=== PATIENT | male | born 1965 | race Caucasian/White ===

== ENCOUNTER 2022-05-15 13:50 | Outpatient (CLI) | payer OTHER, SELFPAY | END 2022-05-15 13:51 | disposition home or self-care (01) | LOC: WOUND 13:50 | PROVIDERS: Visit Provider Nurse Practitioner Family | DX: E11.621 Type 2 diabetes mellitus with foot ulcer (principal); L97.526 Non-pressure chronic ulcer of other part of left foot with bone involvement without evidence of necrosis; E66.3 Overweight | CPT/HCPCS: 99212 ==

== ENCOUNTER 2022-05-29 12:55 | Outpatient (CLI) | payer OTHER, SELFPAY | END 2022-05-29 12:56 | disposition home or self-care (01) | LOC: WOUND 12:55 | PROVIDERS: Visit Provider Nurse Practitioner Family | DX: E11.621 Type 2 diabetes mellitus with foot ulcer (principal); L97.526 Non-pressure chronic ulcer of other part of left foot with bone involvement without evidence of necrosis | CPT/HCPCS: 99212 ==

== ENCOUNTER 2022-06-12 13:01 | Outpatient (CLI) | payer OTHER, SELFPAY | END 2022-06-12 13:02 | disposition home or self-care (01) | LOC: WOUND 13:02 | PROVIDERS: Visit Provider Nurse Practitioner Family | DX: E11.621 Type 2 diabetes mellitus with foot ulcer (principal); L97.528 Non-pressure chronic ulcer of other part of left foot with other specified severity | CPT/HCPCS: 97597 ==

== ENCOUNTER 2022-06-26 12:56 | Outpatient (CLI) | payer OTHER, SELFPAY | END 2022-06-26 12:57 | disposition home or self-care (01) | LOC: WOUND 12:56 | PROVIDERS: Visit Provider Nurse Practitioner Family | DX: E11.621 Type 2 diabetes mellitus with foot ulcer (principal); L97.526 Non-pressure chronic ulcer of other part of left foot with bone involvement without evidence of necrosis | CPT/HCPCS: 97597 ==

== ENCOUNTER 2022-07-17 12:54 | Outpatient (CLI) | payer OTHER, SELFPAY | END 2022-07-17 12:55 | disposition home or self-care (01) | LOC: WOUND 12:54 | PROVIDERS: Visit Provider Nurse Practitioner Family | DX: E11.621 Type 2 diabetes mellitus with foot ulcer (principal); L97.526 Non-pressure chronic ulcer of other part of left foot with bone involvement without evidence of necrosis; Q84.5 Enlarged and hypertrophic nails | CPT/HCPCS: 11720; 97597 ==

== ENCOUNTER 2022-07-31 12:55 | Outpatient (CLI) | payer OTHER, SELFPAY | END 2022-07-31 12:56 | disposition home or self-care (01) | LOC: WOUND 12:55 | PROVIDERS: Visit Provider Nurse Practitioner Family | DX: E11.621 Type 2 diabetes mellitus with foot ulcer (principal); L97.526 Non-pressure chronic ulcer of other part of left foot with bone involvement without evidence of necrosis | CPT/HCPCS: 97597 ==

== ENCOUNTER 2022-08-14 12:59 | Outpatient (CLI) | payer OTHER, SELFPAY | END 2022-08-14 13:00 | disposition home or self-care (01) | LOC: WOUND 12:59 | PROVIDERS: Visit Provider Nurse Practitioner Family | DX: E11.621 Type 2 diabetes mellitus with foot ulcer (principal); L97.526 Non-pressure chronic ulcer of other part of left foot with bone involvement without evidence of necrosis; Q84.5 Enlarged and hypertrophic nails; Z79.85 Long-term (current) use of injectable non-insulin antidiabetic drugs | CPT/HCPCS: 99212 ==

== ENCOUNTER 2022-09-18 13:00 | Outpatient (CLI) | payer OTHER, SELFPAY | END 2022-09-18 13:01 | disposition home or self-care (01) | LOC: WOUND 13:00 | PROVIDERS: Visit Provider Nurse Practitioner Family | DX: E11.621 Type 2 diabetes mellitus with foot ulcer (principal); L97.521 Non-pressure chronic ulcer of other part of left foot limited to breakdown of skin | CPT/HCPCS: 97597 ==

== ENCOUNTER 2022-10-02 13:00 | Outpatient (CLI) | payer OTHER, SELFPAY | END 2022-10-02 13:01 | disposition home or self-care (01) | LOC: WOUND 13:00 | PROVIDERS: Visit Provider Physician Assistant Surgical | DX: E11.621 Type 2 diabetes mellitus with foot ulcer (principal); L97.521 Non-pressure chronic ulcer of other part of left foot limited to breakdown of skin; Z79.85 Long-term (current) use of injectable non-insulin antidiabetic drugs | CPT/HCPCS: 99212 ==

== ENCOUNTER 2024-08-08 20:49 | Emergency (ER) | payer MEDICARE, SELFPAY ==
[2024-08-08 21:15] VITALS: BP 142/92; PULSE 80; RESP 16; TEMP 36.4; O2SAT 94; BMI 35.6
--- NOTE | 2024-08-08 21:29 | CRLHL7_ITS ---
For Patients: As a result of the Cures Act, medical imaging exams and procedure reports are released immediately into your electronic medical record. You may view this report before your referring provider. If you have questions, please contact your health care provider. INDICATION: Recent surgery, left lower extremity swelling. TECHNIQUE: Venous duplex ultrasound of the bilateral lower extremities utilizing compression with finn-scale, color Doppler, and spectral Doppler imaging. COMPARISON: None FINDINGS: There is no sonographic evidence of deep vein thrombosis in the bilateral common femoral, deep femoral, superficial femoral, popliteal, posterior tibial, or peroneal veins. There is a chronic appearing superficial vein thrombus seen in the left greater saphenous vein less than 1 centimeter from the common femoral vein junction and extending to the distal thigh. There are some chronic appearing superficial vein thromboses seen at the left mid calf at area of redness. The soft tissues are unremarkable. IMPRESSION: 1. No deep vein thrombosis in the bilateral lower extremities. 2. There is a chronic appearing superficial vein thrombus seen in the greater saphenous vein less than 1 centimeter from the common femoral vein junction and extending to the distal thigh. 3. There are some chronic appearing superficial vein thromboses seen at the left mid calf at area of redness. Dictated by Benson Chamberlain MD @ 08/09/2024 12:11:45 AM (Electronically Signed)
--- NOTE | 2024-08-08 21:34 | ED.GENADULT ---
HPI - General Adult General Time Seen by Provider: 21:34 Date Seen: 08/08/24 Chief complaint: Lower Extremity Swelling Stated complaint: Possible blood clot L leg Time Seen by Provider: 08/08/24 21:33 Source: patient and RN notes reviewed Mode of arrival: ambulatory Limitations: no limitations History of Present Illness HPI narrative: This 58-year-old male is coming into our ER with concern of possible blood clot in his left lower leg. Noticed pain along the upper inside calf and on the posterior medial lower thigh in his left leg that is been progressive over a week or so. He has had no chest pain, no palpitations, no shortness of breath, no difficulty breathing with this. He has been wearing his compression stockings. He does have known underlying varicose veins in certainly will get swelling in the leg if he does not wear the compression stockings. There has been no fevers or chills. Patient had back surgery on July 22 at [facility]. He has been taking Tylenol for pain. He is not to take NSAIDs, he is off his 81 mg aspirin. He did go to an urgent care today but they were unable to do an ultrasound so he proceeded to come here. Related Data Home Medications ?Medication ?Instructions ?Recorded ?Confirmed amlodipine 10 mg tablet 10 mg PO DAILY 08/15/22 08/08/24 atorvastatin 40 mg tablet 40 mg PO .Bedtime 08/15/22 08/08/24 duloxetine 30 mg capsule,delayed 30 mg PO BID 08/15/22 08/08/24 release insulin glargine 100 unit/mL (3 unit subcut .Daily With Am Meal 08/15/22 06/10/24 mL) subcutaneous pen losartan 100 mg tablet 100 mg PO DAILY 08/15/22 08/08/24 oxycodone 5 mg tablet 5 mg PO 09/21/22 06/10/24 Previous Rx's ?Medication ?Instructions ?Recorded cyclobenzaprine 10 mg tablet 10 mg PO .COMPLEX #10 tabs 06/10/24 apixaban 5 mg tablet (Eliquis) 5 mg PO BID #60 tabs 08/09/24 Allergies Allergy/AdvReac Type Severity Reaction Status Date / Time metformin AdvReac Mild Diarrhea Verified 06/10/24 11:59 Review of Systems Status of ROS: Reports: 6 or more systems reviewed and unremarkable except as noted in History and below [facility] Medical History (Updated 08/09/24 @ 00:17 by Umm Mccabe MD) Encounter for follow-up ?Z09 - Encounter for follow-up examination after completed treatment for conditions other than malignant neoplasm (ICD-10) Surgical History (Updated 05/10/22 @ 15:55 by Guevara Finley) History of inguinal hernia repair ?Z98.890 - Other specified postprocedural states (ICD-10) ?Z87.19 - Personal history of other diseases of the digestive system (ICD-10) Social History Narrative: 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, 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 Face atraumatic, sclera clear, able speak in complete sentences. Lungs are clear, good air entry, no wheezing or crackles. CV regular rate and rhythm, no murmur, normal S1-S2, no S3-S4. He has a Velcro brace on his back. He has [id number] compression Guerrero hose on. The left 1 was taken down, there is no underlying edema. He can feel a palpable cord along the left medial upper calf and then you can feel 1 along the posterior medial thigh, both are tender but the 1 on the thighs more tender in there is some surrounding erythema. Reviewed with patient that these certainly seem like superficial thrombophlebitis. Documenting provider has reviewed patient's vital signs: yes Course Course ED Course: Reviewed superficial thrombophlebitis with patient. He would certainly need to follow this very closely, if it is superficial thrombophlebitis, would recommend an 81 mg aspirin daily but he will need to clear this with his surgeon. If there is DVT, will discuss anticoagulation with him. Did discuss with patient that the foreman or supervisor and operator is on-call and will be called in from home. He understands that there will be a wait time for this. Reevaluation(s) Time of Reevaluation #1: 23:58 Reevaluation #1: Reviewed with patient that we are awaiting the radiologist to read the venous ultrasound officially. The preliminary from the foreman or supervisor and operator is that there is superficial vein thrombosis throughout the greater saphenous and it is less than 1 cm from the common femoral. Nursing staff did look up his last creatinine and was 0.83 in January of 2024, no history of kidney disease. I reviewed with patient that if the radiologist's confirms the formal reading that anticoagulation is recommended. Discussed Eliquis versus Xarelto. He stated he wanted to talk to the surgeon 1st. He would plan on calling them tomorrow. Reviewed with him that I do not recommend waiting to talk to the surgeon, this clot is at risk for extension, this is to be treated as sonata miss with a DVT in the literature. Did review this on up-to-date and do know this from prior cases as well. My recommendation would be to take 1st dose of Eliquis tonight and certainly contact the surgeon tomorrow. I do not recommend waiting to start blood thinners. Vital Signs Vital signs: Initial Vital Signs Temperature 97.6 F 08/08/24 21:15 Temperature Source Temporal Artery Scan 08/08/24 21:15 Pulse Rate 80 08/08/24 21:15 Respiratory Rate 16 08/08/24 21:15 Blood Pressure 142/92 H 08/08/24 21:15 Blood Pressure Mean 108 H 08/08/24 21:15 Blood Pressure Position Sitting 08/08/24 21:15 Pulse Oximetry 94 08/08/24 21:15 Oxygen Delivery Method Room Air 08/08/24 21:15 Vital Signs Temperature 97.6 F 08/08/24 21:15 Pulse Rate 80 08/08/24 21:15 Respiratory Rate 16 08/08/24 21:15 Blood Pressure 142/92 H 08/08/24 21:15 Pulse Oximetry 94 08/08/24 21:15 Oxygen Delivery Method Room Air 08/08/24 21:15 Temperature 97.6 F 08/08/24 21:15 Pulse Rate 80 08/08/24 21:15 Respiratory Rate 16 08/08/24 21:15 Blood Pressure 142/92 H 08/08/24 21:15 Pulse Oximetry 94 08/08/24 21:15 Oxygen Delivery Method Room Air 08/08/24 21:15 Medical Decision Making Imaging Data Venous US: Attestation: I have reviewed the pertinent imaging results. My impression: Reviewed the radiologist reading. Note that the patient was only experiencing increasing pain over this last week, there is redness in the thigh area, symptoms definitely seem to correspond with acute changes based on his history. Radiologist's impression: Patient: BYRON ANDERSON Facility:?[facility] Patient ID:?[id number] Site Patient ID:?[id number]. Site :?[id number] Study:?US-Extremity Bilateral venous-08/08/2024 10:59:58 PM Ordering Physician:?Perla Nash Final Report: INDICATION: Recent surgery, left lower extremity swelling. TECHNIQUE: Venous duplex ultrasound of the bilateral lower extremities utilizing compression with finn-scale, color Doppler, and spectral Doppler imaging. COMPARISON: None FINDINGS: There is no sonographic evidence of deep vein thrombosis in the bilateral common femoral, deep femoral, superficial femoral, popliteal, posterior tibial, or peroneal veins. There is a chronic appearing superficial vein thrombus seen in the left greater saphenous vein less than 1 centimeter from the common femoral vein junction and extending to the distal thigh. There are some chronic appearing superficial vein thromboses seen at the left mid calf at area of redness. The soft tissues are unremarkable. IMPRESSION: 1. No deep vein thrombosis in the bilateral lower extremities. 2. There is a chronic appearing superficial vein thrombus seen in the greater saphenous vein less than 1 centimeter from the common femoral vein junction and extending to the distal thigh. 3. There are some chronic appearing superficial vein thromboses seen at the left mid calf at area of redness. Dictated by Benson Chamberlain MD @ 08/09/2024 12:11:45 AM (Electronic Signature) Discharge Plan Discharge Clinical Impression: Acute superficial venous thrombosis of left lower extremity Patient Disposition: Home, Self-Care Condition: Stable Instructions: Venous Thromboembolism (ED) Additional Instructions: You were given 10 mg of Eliquis tonight here in the ER, need to complete a total of 14 doses of this taken twice a day, then you will transition to 5 mg twice a day. Current literature would recommend treatment for 3 months and re-evaluation. You should call your surgeon tomorrow. Let them know that we have found superficial vein thrombus in the left greater saphenous that is less than 1 cm from the common femoral vein junction and does extend to the distal thigh. There is also superficial vein thrombosis seen at the left mid calf area but this is not the area of concern. I have sent in further Eliquis. Next dose would be due tomorrow morning. Need to also schedule a follow-up with your primary care provider in clinic. Prescriptions: New Eliquis 5 mg tablet 5 mg PO BID Qty: 60 0RF Rx Instructions: Need to take 10 mg twice a day for 13 more doses, 1st 10 mg dose was given in the ER. After the 10 mg dosing is complete, will take to 5 mg twice a day. No Action duloxetine 30 mg capsule,delayed release(DR/EC) 30 mg PO BID losartan 100 mg tablet 100 mg PO DAILY amlodipine 10 mg tablet 10 mg PO DAILY atorvastatin 40 mg tablet 40 mg PO .Bedtime insulin glargine 100 unit/mL (3 mL) insulin pen subcut .Daily With Am Meal oxycodone 5 mg tablet 5 mg PO cyclobenzaprine 10 mg tablet 10 mg PO .COMPLEX Qty: 10 0RF Rx Instructions: 1/2 to 1 tablet q8h prn pain. Follow Up/Referrals: Provider,Not a Local [Non-Staff] - Stand Alone Forms: [facility] [employer] Info Instructions
[2024-08-09] MEDS: APIXABAN 5 MG TABLET 10 MG PO (00:43)
== END 2024-08-09 00:46 | disposition home or self-care (01) ==
PROVIDERS: Emergency Provider Family Medicine; PCP Family Medicine
DX: I82.812 Embolism and thrombosis of superficial veins of left lower extremity (principal)
CPT/HCPCS: 93970; 99283; A9270

== ENCOUNTER 2024-09-10 17:39 | Emergency (ER) | payer MEDICARE, OTHER, SELFPAY ==
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
[2024-09-10 17:54] VITALS: BP 130/90; PULSE 80; RESP 18; TEMP 36.7; O2SAT 96; BMI 35.6
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
[2024-09-10 18:31] LABS: Lactate* 2.3 mmol/L (0.5-1.9)
[2024-09-10] MEDS: HYDROmorphone 0.5 mg/0.5 ml inj IVP (18:31)
[2024-09-10] MEDS: ONDANSETRON 2 MG/ML inj 4 MG IVP (18:31)
[2024-09-10 18:32] VITALS: PULSE 118; RESP 22; O2SAT 95
[2024-09-10 18:35] LABS: Basophils Percent Auto 0.1 % (0.0-3.0); Eosinophils Percent Auto 0.6 % (0.0-7.0); Hematocrit* 42.6 % (37.0-53.0); Hemoglobin* 14.1 gm/dL (13.5-17.5); Immature Granulocytes Pct Auto 0.2 %; Lymphocytes Percent Auto 7.1 % (20-44); Mean Corpuscular HGB Conc 33 gm/dL (32-36); Mean Corpuscular Hemoglobin 28 pg (26-34); Mean Corpuscular Volume 86 fL (80-100); Platelet Count* 268 K/uL (140-440); RDW Coefficient of Variation % 13.8 % (11.5-15.5); Red Blood Count* 4.96 m/uL (4.30-5.90); White Blood Count* 12.09 K/uL (4.50-11.00)
[2024-09-10 18:37] LABS: Slide Review Reflex No
[2024-09-10 18:48] LABS: Chloride* 99 mmol/L (96-114); Sodium* 134 mmol/L (135-149)
[2024-09-10 18:51] LABS: Anion Gap 13 mEq/L (7-15); Blood Urea Nitrogen* 30 mg/dL (7-30); Carbon Dioxide* 22 mmol/L (20-32); Creatinine* 0.8 mg/dL (0.5-1.5); Est. Creatinine Clearance* 112.36; Estimated Glomerular Filt Rate 102 ml/min
[2024-09-10 18:52] LABS: Glucose* 235 mg/dL (60-115)
[2024-09-10 19:04] LABS: Troponin I* < 0.01 ng/mL (0.01-0.04)
[2024-09-10 19:23] VITALS: O2SAT 95
[2024-09-10] MEDS: HYDROmorphone 0.5 mg/0.5 ml inj 1 MG IVP (19:36)
[2024-09-10] MEDS: LIDOCAINE 1%-EPI 1:100,000 20 ML INFILTRATI (19:40)
[2024-09-10 20:55] VITALS: PULSE 115; RESP 20
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
== END 2024-09-10 20:58 | disposition home or self-care (01) ==
PROVIDERS: Emergency Provider Emergency Medicine; PCP Family Medicine
DX: S09.90XA Unspecified injury of head, initial encounter (principal); S01.21XA Laceration without foreign body of nose, initial encounter; S60.211A Contusion of right wrist, initial encounter; R07.89 Other chest pain; M25.561 Pain in right knee; V43.52XA Car driver injured in collision with other type car in traffic accident, initial encounter
CPT/HCPCS: 12011; 36415; 70450; 70486; 71260; 72125; 73110; 73562; 74177; 80048; 82565; 83605; 84484; 85025; 86850; 86900; 86901; 93005; 94761; 96374; 96375; 99281; 99284; 99285; J1171; J2405; Q9967

== ENCOUNTER 2024-09-11 21:42 | Emergency (ER) | payer OTHER, MEDICARE, SELFPAY ==
[2024-09-11 22:01] VITALS: BP 134/84; PULSE 84; RESP 18; TEMP 36.7; O2SAT 99; BMI 34.7
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
[2024-09-11] MEDS: MORPHINE 10 MG/ML inj IM (22:59)
--- OUTSIDE RECORDS SUMMARY | 2024-09-11 23:08 | XMS_ITS | Referral Summary ---
Author Organization [facility] Address [address] [place] [address] Care Team Providers Care Nremt Name Role Phone Bryan Uribe M.D. Primary Care Provider [phone] Source Comments Patient records contain information from all sites at [facility]. For routine questions regarding patient records, call [phone] during business hours, M-F 8:00 AM - 5:00 PM Central Time. Record requests for emergency care only can be directed to [phone] at any time.[facility] Encounters Date Type Department Care Team Description 09/09/2024 Refill Department of Family Medicine in [place] [address] [place] [address] Bryan Uribe M.D. Med Refill 08/12/2024 Refill Department of Family Medicine in [place], [place] [address] [place] [address] Bryan Uribe M.D. Med Refill 07/16/2024 Clinical Communication Department of Family Medicine in [place], [place] [address] [place] [address] Bryan Uribe M.D. Welcome To Medicare 07/08/2024 1:00 PM CDT Office Visit Department of Family Medicine in [place], [place] [address] [place] [address] Bryan Uribe M.D. Chronic Pain Syndrome (Primary Dx); Radiculopathy Cervical Seventh; Pain Low Back Unspecified; Pain Knee Left 07/08/2024 11:07 AM CDT - 07/08/2024 11:59 PM CDT Hospital Encounter Department of Laboratory Medicine in [place], [place] [address] [place] [address] Bryan Uribe M.D. Hypertensive Chronic Kidney Disease With Stage 1 Through Stage 4 Chronic Kidney Disease, Or Unspecified Chronic Kidney Disease; Chronic Pain Syndrome Discharge Disposition: Home or Self Care 06/16/2024 Refill Department of Family Medicine in [place], [place] [address] [place] [address] Bryan Uribe M.D. Med Refill from Last 3 Months Allergies Active Allergy Reactions Criticality Noted Date Comments Metformin Diarrhea 05/23/2016 Medications aspirin 81 mg capsule Take 81 mg by mouth every evening. 08/25/20 14 Active DOCOSAHEXANOI C ACID/EPA (FISH OIL ORAL) Take 2 capsules by mouth daily. 05/23/20 16 Active ammonium lactate (LAC-HYDRIN) 12 % lotion APPLY DAILY TO FEET 12/13/19 22 Active BD Willa 2nd Gen Pen Needle 32 gauge x /32 needle 11/04/20 21 Active semaglutide (Ozempic) 2 mg/dose (8 mg/3 mL) injection Inject 2 mg under the skin every 7 (seven) days. 3 mL 11 02/03/20 23 Active potassium chloride (KLORCON/K-TA B) 10 mEq ER tablet TAKE 1 TABLET BY MOUTH 3 TIMES DAILY WITH MEALS 270 tablet 3 02/29/20 23 Active insulin degludec (Tresiba FlexTouch U-100) 100 unit/mL (3 mL) injection Inject 50 Units under the skin at bedtime. 15 mL 3 10/23/20 23 Active Additional Information Patient taking differently: 55 Unitssubcutaneous Daily at bedtime, Reported on 03/25/2024 DULoxetine (CYMBALTA) [address] capsuleIndica tions:Diabete s Mellitus Type 2 Peripheral Neuropathy (HCC) Take 1 capsule (30 mg total) by mouth 2 (two) times a day. 180 capsule 3 11/20/19 24 Active Additional Information Patient taking differently: 60 mgoral 2 times daily, Reported on 03/25/2024 losartan (COZAAR) 100 mg tabletIndicat ions:Hyperten domitila And Chronic Kidney Disease Stage 1 Take 1 tablet (100 mg total) by mouth daily. 90 tablet 3 11/20/19 24 Active amLODIPine (NORVASC) 10 mg tabletIndicat ions:Hyperten domitila And Chronic Kidney Disease Stage 1 Take 1 tablet (10 mg total) by mouth daily. 90 tablet 3 11/20/19 24 Active atorvastatin (LIPITOR) 40 mg tabletIndicat ions:Hyperlip idemia Take 1 tablet (40 mg total) by mouth daily. 90 tablet 3 01/11/20 24 Active oxyCODONE (Roxicodone) 5 mg immediate release tabletIndicat ions:Chronic Pain/Nonacute Pain Take 1 tablet (5 mg total) by mouth 2 (two) times a day as needed for pain Indication: Chronic Pain/Nonacute Pain. 60 tablet 09/09/20 24 Active oxyCODONE (Roxicodone) 5 mg immediate release tabletIndicat ions:Chronic Pain/Nonacute Pain Take 1 tablet (5 mg total) by mouth 2 (two) times a day as needed for pain Indication: Chronic Pain/Nonacute Pain. 60 tablet 08/12/20 24 024 Discontin ued(Reord er) Active Problems Problem Noted Date Diagnosed Date Pain Knee Left 07/08/2024 Assessment & Plan (07/09/2024 5:17 PM CDT): Currently under the care of [facility]. MRI of the left knee completed 12/2022 showed complex tear from the anterior root through the body of the lateral meniscus, chronic intra-articular lateral tibial plateau fracture deformity with overlying chondral injury. 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 There is free edge fraying of the body of the medial meniscus with a moderate knee joint effusion. No ligamentous injury is noted. This historically was a work-related injury. Status post previous left knee meniscectomy. Managed with Synvisc injections. Currently with ongoing arthritis. He will consider knee replacement in the future based on symptoms. Pain Low Back Unspecified 07/08/2024 Assessment & Plan (07/09/2024 5:17 PM CDT): Recent low back pain with right lower leg radiculopathy. MRI 06/27/2024 showed L4-L5 right L4 encroachment with a 19 x 7 mm acute appearing right central disc extrusion and chronic appearing 5 mm right foraminal disc protrusion. There is vsfv-cg-wbttjscr spondylosis through the rest of the lumbar spine without high-grade stenosis. Currently under the care of [facility]. Reported planned surgical management with spine fusion. Plan for follow-up with Orthopedics for management. He is under controlled substance agreement with me, however when it comes to upcoming surgery, his postoperative pain will need to be managed by Orthopedics. Chronic Pain Syndrome 01/22/2023 Assessment & Plan (07/08/2024 1:19 PM CDT): Indication for opiate pain medication: Cervical radiculopathy. Current medication: Oxycodone for cervical radiculopathy. Number prescribed per month: 60 Expected duration: To be determined Controlled substance agreement signed: 03/25/2024 Clinic follow up recommended every 3 months. Orders: Family Medicine office visit (clinic) oxyCODONE (Roxicodone) 5 mg immediate release tablet; Take 1 tablet (5 mg total) by mouth 2 (two) times a day as needed for pain Indication: Chronic Pain/Nonacute Pain. Assessment & Plan (03/25/2024 1:24 PM CDT): Indication for opiate pain medication: Cervical radiculopathy. Current medication: Oxycodone for cervical radiculopathy. Number prescribed per month: 60 Expected duration: To be determined Controlled substance agreement signed: 03/25/2024 Clinic follow up recommended every 3 months. Assessment & Plan (11/20/2023 4:36 PM PATTERN MARKING SUPERVISOR): Indication for opiate pain medication: Cervical radiculopathy. Continue Cymbalta 30 mg twice a day for pain management. Current medication: Oxycodone for cervical radiculopathy. Number prescribed per month: 60 Expected duration: To be determined Controlled substance agreement signed: 01/22/2023 Clinic follow up recommended every 3 months. Radiculopathy Cervical Seventh 07/12/2022 Assessment & Plan (07/08/2024 1:19 PM CDT): Previously under the care of [facility]. Now under the care of [facility]. Cervical spondylosis without myelopathy. Status post medial branch nerve block 05/2023. On chronic opiate therapy with oxycodone 5 mg twice a day. Patient has reported that recently orthopedics has suggested that surgical treatment is not an option. He has elected to proceed with possible radiofrequency ablation and will continue to work with his surgical specialty team regarding management. Assessment & Plan (03/25/2024 1:04 PM CDT): Previously under the care of [facility]. Cervical spondylosis without myelopathy. Status post medial branch nerve block 05/2023. On chronic opiate therapy with oxycodone 5 mg twice a day. Assessment & Plan (11/20/2023 4:34 PM PATTERN MARKING SUPERVISOR): Previously under the care of [facility]. Cervical spondylosis without myelopathy. Status post medial branch nerve block 05/2023. On chronic opiate therapy with oxycodone 5 mg twice a day. Diabetes Mellitus Type 2 Peripheral Neuropathy 0 05/29/2016 Assessment & Plan (11/20/2023 4:35 PM PATTERN MARKING SUPERVISOR): Diabetes appears appears poorly controlled. Medications: Continue insulin glargine 50 units nightly. Continue semaglutide 2 mg every 7 days. We discussed general issues about diabetes pathophysiology and management. The importance of glycemic control, blood pressure control, management of lipids, and weight control were reviewed. Adherence to the ADA diet and regular aerobic exercise was encouraged. Routine foot care and annual eye exams were recommended. Diabetic follow-up visit recommended every 3 months with recheck the pain gland when A1c for medication titration. Patient has been approved for a free drug program manufacture where he will be able to get the insulin and semaglutide. Unfortunately [facility] is unable to receive prescriptions at the clinic. He will consider other options for obtaining these medications including going through standard insurance however may need to find a different clinic who would be able to facilitate this type of acquisition of pharmaceuticals. Follow-up with me is scheduled in January with labs prior to the visit. Hypoxia Sleep Related 03/01/2016 Morbid Obesity Body Mass Ind ex >= 35 with Comorbid Condition 02/28/2016 Assessment & Plan (11/20/2023 4:29 PM PATTERN MARKING SUPERVISOR): He was encouraged to try to continue efforts at losing weight. He will continue Ozempic 2mg weekly. We discussed lifestyle modification to manage obesity. The overall health benefits of weight loss were reviewed. Hyperlipidemia 08/25/2014 Assessment & Plan (11/20/2023 4:31 PM PATTERN MARKING SUPERVISOR): Lipids are appears adequately controlled. Medication recommendations: Continue Arovastatin 40mg daily. Cholesterol management goals were discussed. Lifestyle modification recommendations to improve cholesterol were reviewed. Plan for annual lipid monitoring. Hypertensive Chronic Kidney Disease With Stage 1 Through Stage 4 Chronic Kidney Disease, Or Unspecified Chronic Kidney Disease 10/27/2013 Assessment & Plan (11/20/2023 4:31 PM PATTERN MARKING SUPERVISOR): Blood pressure appears well controlled. Medications recommendations: Continue amlodipine and losartan. Blood pressure elevated today due to not having a refill of blood pressure medication. Goal blood pressure was discussed based on his current comorbidities. Lifestyle modification recommendations to improve blood pressure were reviewed. Plan to recheck blood pressure at next visit and add diuretic if necessary. Resolved Problems Problem Noted Date Diagnosed Date Resolved Date Hypertensive Chronic Kidney Disease With Stage 1 Through Stage 4 Chronic Kidney Disease, Or Unspecified Chronic Kidney Disease 03/25/2024 07/02/2024 Positive Cologuard Stool Dariel xyribonucleic Acid Test 09/09/2021 11/20/2023 Overview (09/09/2021): Added automatically from request for surgery [id number] Clostridium Difficile Infection 06/29/2016 09/18/2017 Diabetes Mellitus Type 2 Wit h Diabetic Nephropathy 05/23/2016 10/09/2023 Ureterolithiasis 03/01/2016 09/18/2017 Stone Kidney 10/27/2013 09/18/2017 Immunizations Name Administration Dates Next Due HepB Adult 05/02/2023(Deferred: Patient Ref used) PPSV23 05/02/2023(Deferred: Patient Ref used) RZV (SHINGRIX) 05/02/2023(Deferred: Patient Ref used) SARS-COV-2 (COVID-19) - PFIZ ER (Discontinued)(12 years or older) 05/02/2023(Deferred: Patient Refused) Tdap 05/02/2023(Deferred: Patient Refused),11/06/2012,11/07/2011 Social History Tobacco Use Types Packs/Day Years Used Date Smoking Tobacco: Never Smokeless Tobacco: Never Tobacco Cessation:Counseling Given: Not Answered Alcohol Use Standard Drinks/Week Comments Yes 1 (1 standard drink = 0.6 oz pur e alcohol) rare Humiliation, Afraid, Rape, and Kick questionnair e Answer Date Recorded Within the last year, have y ou been afraid of your partner or ex-partner? Patient declined 07/12/2022 Within the last year, have y ou been humiliated or emotionally abused in other ways by your partner or ex-partner? No 07/12/2022 Within the last year, have y ou been kicked, hit, slapped, or otherwise physically hurt by your partner or ex-partner? No 07/12/2022 Within the last year, have y ou been raped or forced to have any kind of sexual activity by your partner or ex-partner? No 07/12/2022 Social Connection and Isolat ion Panel [NHANES] Answer Date Recorded In a typical week, how many times do you talk on the phone with family, friends, or neighbors? More than three times a week 07/12/2022 How often do you get togethe r with friends or relatives? Twice a week 07/12/2022 How often do you attend chur or episcopalian services? Never 07/12/2022 Do you belong to any clubs o r organizations such as mosque groups, unions, fraternal or athletic groups, or school groups? No 07/12/2022 How often do you attend meet ings of the clubs or organizations you belong to? Never 07/12/2022 Are you , , di vorced, , never , or living with a partner? 07/12/2022 AUDIT-C Answer Date Recorded Q1: How often do you have a drink containing alc ohol? Monthly or less 07/12/2022 Q2: How many drinks containi ng alcohol do you have on a typical day when you are drinking? 3 or 4 07/12/2022 Q3: How often do you have si x or more drinks on one occasion? Less than monthly 07/12/2022 Overall Financial Resource Strain (CARDIA) Answe r Date Recorded How hard is it for you to pa y for the very basics like food, housing, medical care, and heating? Hard 10/09/2023 PHQ-2 Answer Date Recorded PHQ-2 Score 2 03/25/2024 [facility] - Occupational Stress Questionnaire Answer Date Recorded Do you feel stress - tense, restless, nervous, or anxious, or unable to sleep at night because your mind is troubled all the time - these days? Rather much 07/12/2022 Exercise Vital Sign Answer Date Recorde d On average, how many days pe r week do you engage in moderate to strenuous exercise (like a brisk walk)? 0 days 10/09/2023 On average, how many minutes do you engage in exercise at this level? 0 min 10/09/2023 Hunger Vital Sign Answer Date Recorded Within the past 12 months, y ou worried that your food would run out before you got the money to buy more. Sometimes true Within the past 12 months, t he food you bought just didn't last and you didn't have money to get more. Sometimes true 03/2023 PRAPARE - Transportation Answer Date Re corded In the past 12 months, has l ack of transportation kept you from medical appointments or from getting medications? No 03/2023 In the past 12 months, has l ack of transportation kept you from meetings, work, or from getting things needed for daily living? No 10/09/2023 Depression Answer Date Recor ded PHQ-9 Total Score (max 27) 6 03/25 Nutrition Answer Date Recorded On average, how many serving s of fruits and vegetables do you eat per day (serving size is equal to 1 cup or approximately the size of a tennis ball)? 3-5 10/09/2023 Dental Answer Date Recorded Dental: Regular Dentist Yes 07/12/20 Employment Answer Date Recorded Employment status Employed but not working due t o illness or injury 10/09/2023 Housing Stability Answer Date Recorded What is your living situation today? I have a [place] place [place] live 10/09/2023 Education Answer Date Recorded What is the highest level of school you have completed or the highest degree you have received? GED or equivalent 05/2022 Sex and Gender Information Value Date Recorded Sex Assigned at Male 07/12/2022 1:04 PM CDT Legal Sex Male 4:24 PM PATTERN MARKING SUPERVISOR Gender Identity Male 07/12/2022 1:04 PM CDT Sexual Orientation Straight 07/12/2022 1: 04 PM CDT Last Filed Vital Signs Vital Sign Reading Time Taken Comments Blood Pressure 110/78 07/08/2024 12:40 PM CDT Pulse 115 07/08/2024 12:40 PM CDT Temperature 36.6 ??C (97.9 ??F) 07/08/2024 12:40 PM C DT Respiratory Rate 20 10/09/2023 1:16 PM PATTERN MARKING SUPERVISOR Oxygen Saturation 96% 07/08/2024 12:40 PM CDT Inhaled Oxygen Concentration - - Weight 123 kg (271 lb 13.2 oz) 07/08/2024 12:40 PM CDT Height 184 cm (6' 0.44) 07/08/2024 12:40 PM CDT Body Mass Index 36.42 07/08/2024 12:40 PM CDT Plan of Treatment Upcoming Encounters Date Type Department Care Team (Late st Contact Info) Description 10/08/2024 1:00 PM PATTERN MARKING SUPERVISOR Comprehensive Visit Department of Family Medicine in [place], [place] [address] [place] [address] Bryan Uribe M.D. [address] [place] [address] Procedures Procedure Name Priority Date/Time Associated Diagnosis Comments CONTROLLED SUBSTANCE MONITORING, U Routine 07/08/2024 11:26 AM CDT Chronic Pain Syndrome EXTM HEMOGLOBIN A1C, B Routine 01/07/2024 BASIC METABOLIC PANEL, S/P Routine 10/09/2023 1:52 PM PATTERN MARKING SUPERVISOR Hypertension And Chronic Kidney Disease Stage 1 ALBUMIN, RANDOM, U Routine 2022 8: 48 AM PATTERN MARKING SUPERVISOR Diabetes Mellitus Type 2 Peripheral Neuropathy (HCC) HCV AB SCRN W/REFLEX TO HCV PCR, S Routine 2022 8:35 AM PATTERN MARKING SUPERVISOR Screening Test Laboratory LIPID PANEL, S Routine 2022 8:35 AM PATTERN MARKING SUPERVISOR Hyperlipidemia COLONOSCOPY 07/03/2022 9:11 AM CDT COLOGUARD Routine 08/27/2021 10:40 AM CDT Screening Cancer Colon from Last 3 Months or Most Recently Relevant to Health Maintenance Results * (ABNORMAL) Controlled Substance Monitoring Panel, Urine (07/08/2024 11:26 AM CDT) List patient's current medications Not provided 4 10:02 PM CDT [facility] Comment: ----ADDITIONAL INFORMATION---- Accuracy and completeness of declared medications on reports solely dependent on information submitted by client. Creatinine, Random, U 221.3 mg/dL 4 8:47 AM CDT [facility] Specific [place] 1.030 07/09/20 2 4 8:47 AM CDT [facility] pH 5.3 4 8:47 AM CDT [facility] Oxidants Negative Cutoff: 200 mg/L 4 8:47 AM CDT [facility] Comment Normal 4 8:47 AM CDT [facility] Barbiturates Negative Cutoff: 200 ng/mL 4 8:47 AM CDT [facility] Cocaine Negative Cutoff: 150 ng/mL 4 8:47 AM CDT [facility] Comment: This cocaine immunoassay targets benzoylecgonine the primary metabolite of cocaine. Tetrahydrocannabinol Negative Cutoff: 50 ng/mL 4 8:47 AM CDT [facility] Comment: This immunoassay targets delta-9 tetrahydrocannabinol carboxylic acid (THC-COOH), a metabolite of delta-9 tetrahydrocannabinol the main psychoactive ingredient of marijuana. ----ADDITIONAL INFORMATION---- This report is intended for use in clinical monitoring or management of patients. ??It is not intended for use in employment-related testing. Codeine Not Detected Cutoff: 25 ng/mL 4 10:51 AM CDT [facility] Comment:Tylenol 3 Htrgrcd-9-xmcs-glucuro nide Not Detected Cutoff: 100 ng/mL 4 10:51 AM CDT [facility] Comment:Metabolite of codein e Morphine Not Detected Cutoff: 25 ng/mL 4 10:51 AM CDT [facility] Comment: Julia Ruiz, MS Contin; Also a minor metabolite (10%) of codeine and can be seen in low concentrations (<2,000 ng/mL) with poppy seed ingestion. Yradbpfl-4-yqck-glucur onide Not Detected Cutoff: 100 ng/mL 4 10:51 AM CDT [facility] Comment:Metabolite of morphi ne 6-monoacetylmorphine Not Detected Cutoff: 25 ng/mL 4 10:51 AM CDT [facility] Comment:Metabolite of heroin Hydrocodone Not Detected Cutoff: 25 ng/mL 4 10:51 AM CDT [facility] Comment: Lortab, [place], Vicodin; Also a very minor metabolite of codeine and impurity (<1%) of oxycodone. Norhydrocodone Not Detected Cutoff: 25 ng/mL 4 10:51 AM CDT [facility] Comment:Metabolite of hydroc odone Dihydrocodeine Not Detected Cutoff: 25 ng/mL 4 10:51 AM CDT [facility] Comment:Metabolite of hydroc odone Hydromorphone Not Detected Cutoff: 25 ng/mL 4 10:51 AM CDT [facility] Comment: Dilaudid, Exalgo; Also a metabolite of hydrocodone and a minor (<5%) metabolite of morphine. Tahnikalnuayi-5-mwur-g lucuronide Not Detected Cutoff: 100 ng/mL 4 10:51 AM CDT [facility] Comment:Metabolite of hydrom orphone Oxycodone Present(A) Cutoff: 25 ng/mL 4 10:51 AM CDT [facility] Comment:Endocet, Percocet, O xycontin Noroxycodone Present(A) Cutoff: 25 ng/mL 4 10:51 AM CDT [facility] Comment:Metabolite of oxycod one Oxymorphone Not Detected Cutoff: 25 ng/mL 4 10:51 AM CDT [facility] Comment:Numorphan, Opana; Al so a metabolite of oxycodone. Zkndqcsmwwj-9-jlnw-glu curonide Present(A) Cutoff: 100 ng/mL 4 10:51 AM CDT [facility] Comment:Metabolite of oxymor phone and/or naloxone (nornaloxone) Noroxymorphone Present(A) Cutoff: 25 ng/mL 4 10:51 AM CDT [facility] Comment:Metabolite of oxymor phone and/or naloxone (nornaloxone) Fentanyl Not Detected Cutoff: 2 ng/mL 4 10:51 AM CDT [facility] Comment:Actiq, Duragesic, Fe ntora Norfentanyl Not Detected Cutoff: 2 ng/mL 4 10:51 AM CDT [facility] Comment:Metabolite of fentan yl Meperidine Not Detected Cutoff: 25 ng/mL 4 10:51 AM CDT [facility] Comment:Demerol Normeperidine Not Detected Cutoff: 25 ng/mL 4 10:51 AM CDT [facility] Comment:Metabolite of meperi dine Naloxone Not Detected Cutoff: 25 ng/mL 4 10:51 AM CDT [facility] Comment:Narcan Pksbcwup-9-dpdm-glucur onide Not Detected Cutoff: 100 ng/mL 4 10:51 AM CDT [facility] Comment:Metabolite of naloxo ne Methadone, U Not Detected Cutoff: 25 ng/mL 4 10:51 AM CDT [facility] Comment:Dolophine EDDP Not Detected Cutoff: 25 ng/mL 4 10:51 AM CDT [facility] Comment:Metabolite of methad one Propoxyphene Not Detected Cutoff: 25 ng/mL 4 10:51 AM CDT [facility] Comment:Darvon, Darvocet Norpropoxyphene Not Detected Cutoff: 25 ng/mL 4 10:51 AM CDT [facility] Comment:Metabolite of propox yphene Tramadol Not Detected Cutoff: 25 ng/mL 4 10:51 AM CDT [facility] Comment:Tradol, Ultram, Ultr acet O-desmethyltramadol Not Detected Cutoff: 25 ng/mL 4 10:51 AM CDT [facility] Comment:Metabolite of tramad ol Tapentadol Not Detected Cutoff: 25 ng/mL 4 10:51 AM CDT [facility] Comment:Nucynta N-desmethyltapentadol Not Detected Cutoff: 50 ng/mL 4 10:51 AM CDT [facility] Comment:Metabolite of tapent adol Ulwbfvtzen-xlou-ptipqz onide Not Detected Cutoff: 100 ng/mL 4 10:51 AM CDT [facility] Comment:Metabolite of tapent adol Buprenorphine Not Detected Cutoff: 5 ng/mL 4 10:51 AM CDT [facility] Comment:Buprenex, Suboxone Norbuprenorphine Not Detected Cutoff: 5 ng/mL 4 10:51 AM CDT [facility] Comment:Metabolite of bupren orphine Norbuprenorphine glucuronide Not Detected Cutoff: 20 ng/mL 4 10:51 AM CDT [facility] Comment:Metabolite of bupren orphine Opioid Interpretation Test detected the presence of oxycodone and several metabolites (noroxycodone, noroxymorphone, and qmokgddnbzw-3-kus a-glucuronide). Suspect use of oxycodone and/or oxymorphone within the past three days. 4 10:51 AM CDT [facility] Comment: ----ADDITIONAL INFORMATION---- This test was developed and its performance characteristics determined by [facility] in a manner consistent with CLIA requirements. This test has not been cleared or approved by the U.S. Food and Drug Administration. Alprazolam Not Detected Cutoff: 10 ng/mL 4 8:44 AM CDT [facility] Comment:Xanax Alpha-Hydroxyalprazola m Not Detected Cutoff: 10 ng/mL 4 8:44 AM CDT [facility] Comment:Metabolite of Alpraz olam Alpha-Hydroxyalprazola m Glucuronide Not Detected Cutoff: 50 ng/mL 4 8:44 AM CDT [facility] Comment:Metabolite of Alpraz olam Chlordiazepoxide Not Detected Cutoff: 10 ng/mL 4 8:44 AM CDT [facility] Comment:Librium Clobazam Not Detected Cutoff: 10 ng/mL 4 8:44 AM CDT [facility] Comment:Frisium, Onfi N-Desmethylclobazam Not Detected Cutoff: 200 ng/mL 4 8:44 AM CDT [facility] Comment:Metabolite of Clobaz am Clonazepam Not Detected Cutoff: 10 ng/mL 4 8:44 AM CDT [facility] Comment:Klonopin, Rivotril 7-aminoclonazepam Not Detected Cutoff: 10 ng/mL 4 8:44 AM CDT [facility] Comment:Metabolite of Clonaz epam Diazepam Not Detected Cutoff: 10 ng/mL 4 8:44 AM CDT [facility] Comment:Valium Nordiazepam Not Detected Cutoff: 10 ng/mL 4 8:44 AM CDT [facility] Comment:Metabolite of Chlord iazepoxide, Diazepam, or Prazepam. Flunitrazepam Not Detected Cutoff: 10 ng/mL 4 8:44 AM CDT [facility] Comment:Rohypnol 7-aminoflunitrazepam Not Detected Cutoff: 10 ng/mL 4 8:44 AM CDT [facility] Comment:Metabolite of Flunit razepam Flurazepam Not Detected Cutoff: 10 ng/mL 4 8:44 AM CDT [facility] Comment:Dalmane 2-Hydroxy Ethyl Flurazepam Not Detected Cutoff: 10 ng/mL 4 8:44 AM CDT [facility] Comment:Metabolite of Fluraz epam Lorazepam Not Detected Cutoff: 10 ng/mL 4 8:44 AM CDT [facility] Comment:Ativan Lorazepam Glucuronide Not Detected Cutoff: 50 ng/mL 4 8:44 AM CDT [facility] Comment:Metabolite of Loraze naeem Midazolam Not Detected Cutoff: 10 ng/mL 4 8:44 AM CDT [facility] Comment:Versed Alpha-Hydroxy Midazolam Not Detected Cutoff: 10 ng/mL 4 8:44 AM CDT [facility] Comment:Metabolite of Midazo harris Oxazepam Not Detected Cutoff: 10 ng/mL 4 8:44 AM CDT [facility] Comment:Serax; Also a metabo lite of Chlordiazepoxide, Diazepam, or Temazepam. Oxazepam Glucuronide Not Detected Cutoff: 50 ng/mL 4 8:44 AM CDT [facility] Comment:Metabolite of Oxazep am Prazepam Not Detected Cutoff: 10 ng/mL 4 8:44 AM CDT [facility] Comment:Centrax Temazepam Not Detected Cutoff: 10 ng/mL 4 8:44 AM CDT [facility] Comment:Restoril; Also a met abolite of Diazepam. Temazepam Glucuronide Not Detected Cutoff: 50 ng/mL 4 8:44 AM CDT [facility] Comment:Metabolite of Temaze naeem Triazolam Not Detected Cutoff: 10 ng/mL 4 8:44 AM CDT [facility] Comment:Halcion Alpha-Hydroxy Triazolam Not Detected Cutoff: 10 ng/mL 4 8:44 AM CDT [facility] Comment:Metabolite of Triazo harris Zolpidem Not Detected Cutoff: 10 ng/mL 4 8:44 AM CDT [facility] Comment:Ambien Zolpidem Uxpqqs-3-Ltdaougfuj acid Not Detected Cutoff: 10 ng/mL 4 8:44 AM CDT [facility] Comment:Metabolite of Zolpid em Benzodiazepine Interpretation No benzodiazepines were detected. The absence of expected drug(s) and/or drug metabolite(s) may indicate non-compliance, altered pharmacokinetics, inappropriate timing of specimen collection relative to drug administration, diluted/adulterat ed urine, or limitations of testing. 4 8:44 AM CDT [facility] Comment: ----ADDITIONAL INFORMATION---- This test was developed and its performance characteristics determined by [facility] in a manner consistent with CLIA requirements. This test has not been cleared or approved by the U.S. Food and Drug Administration. Methamphetamine Not Detected Cutoff: 100 ng/mL 4 11:12 AM T [facility] Comment:Desoxyn Amphetamine Not Detected Cutoff: 100 ng/mL 4 11:12 AM T [facility] Comment: Dyanavel XR, Adzenys ER, Adderall, Vyvanse; Also a metabolite of methamphetamine 3,4-methylenedioxymeth amphetamine (MDMA) Not Detected Cutoff: 100 ng/mL 4 11:12 AM CDT [facility] 3,9-qneonpiwvwttsm-V-e thylamphetamine (MDEA) Not Detected Cutoff: 100 ng/mL 4 11:12 AM CDT [facility] 3,4-methylenedioxyamph etamine (MDA) Not Detected Cutoff: 100 ng/mL 4 11:12 AM T [facility] Comment:Also a metabolite of MDMA and/or MDEA Ephedrine Not Detected Cutoff: 100 ng/mL 4 11:12 AM CDT [facility] Pseudoephedrine Not Detected Cutoff: 100 ng/mL 4 11:12 AM CDT [facility] Comment:Sudafed Phentermine Not Detected Cutoff: 100 ng/mL 4 11:12 AM T [facility] Comment:Adipex-P, Lomaira, Q symia Phencyclidine (PCP) Not Detected Cutoff: 20 ng/mL 4 11:12 AM CDT [facility] Methylphenidate Not Detected Cutoff: 20 ng/mL 4 11:12 AM T [facility] Comment:Ritalin, Concerta Ritalinic acid Not Detected Cutoff: 100 ng/mL 4 11:12 AM T [facility] Comment:Metabolite of methyl phenidate Stimulant Interpretation No stimulants were detected. The absence of expected drug(s) and/or drug metabolite(s) may indicate non-compliance, altered pharmacokinetics, inappropriate timing of specimen collection relative to drug administration, diluted/adulterat ed urine, or limitations of testing. 4 11:12 AM T [facility] Comment: ----ADDITIONAL INFORMATION---- This test was developed and its performance characteristics determined by [facility] in a manner consistent with CLIA requirements. This test has not been cleared or approved by the U.S. Food and Drug Administration. Urine (Urine, Voided) 07/08/2024 11:26 AM CDT 07/08/2024 10:02 PM CDT Bryan Uribe M.D. LAB URINE ORDERABLES Final Resu lt [facility] [address] [place] [address] [facility] [address] [place] [address] [facility] [address] [place] [address] [place] [address] * (ABNORMAL) Basic Metabolic Panel (10/09/2023 1:52 PM PATTERN MARKING SUPERVISOR) Potassium, P 4.4 3.6 - 5.2 mmol/L 10/09/2023 4:06 PM PATTERN MARKING SUPERVISOR [facility] Sodium, P 133(L) 135 - 145 mmol/L 10/09/2023 4:06 PM PATTERN MARKING SUPERVISOR [facility] Chloride, P 101 98 - 107 mmol/L 10/09/2023 4:06 PM PATTERN MARKING SUPERVIS[employer] [facility] Bicarbonate, P 22 22 - 29 mmol/L 10/09/2023 4:06 PM PATTERN MARKING SUPERVISOR [facility] Anion Gap, P 10 7 - 15 10/09/2023 4:06 PM PATTERN MARKING SUPERVISOR [facility] BUN (Blood Urea Nitrogen), P 23 8 - 24 mg/dL 10/09/2023 4:06 PM PATTERN MARKING SUPERVISOR [facility] Creatinine 0.69(L) 0.74 - 1.35 mg/dL 10/09/2023 4:06 PM PATTERN MARKING SUPERVISOR [facility] Estimated GFR (eGFR) >90 >=60 mL/min/BSA 10/09/2023 4:06 PM PATTERN MARKING SUPERVISOR [facility] Comment: Estimated GFR calculated using the 2020 CKD_EPI creatinine equation. Calcium, Total, P 8.5(L) 8.6 - 10.0 mg/dL 10/09/2023 4:06 PM PATTERN MARKING SUPERVISOR [facility] Glucose, P 280(H) 70 - 140 mg/dL 10/09/2023 4:06 PM PATTERN MARKING SUPERVISOR [facility] Blood (Blood, Venous) 10/09/2023 1:52 PM PATTERN MARKING SUPERVISOR 10/09/2023 3:34 PM PATTERN MARKING SUPERVISOR us Tello Wood M.D. LAB BLOOD ADD-ON Final Result Performing Organization Address [facility] Co de Phone Number [facility] [address] [place] [address], [facility] NPRG [address] [address] * (ABNORMAL) Albumin, Random, Urine (2022 8:48 AM PATTERN MARKING SUPERVISOR) Microalbumin 100.0 mg/L 2022 10:46 AM PATTERN MARKING SUPERVISOR [facility] Creatinine 124 mg/dL 2022 10:46 AM PATTERN MARKING SUPERVISOR [facility] Albumin/Creatinin e Ratio 81(H) <17 mg/g 2022 10:46 AM PATTERN MARKING SUPERVISOR [facility] Urine (Urine, Voided) 2022 8:48 AM PATTERN MARKING SUPERVISOR 2022 10:11 AM PATTERN MARKING SUPERVISOR us Bryan Uribe M.D. LAB URINE ORDERABLES Final Resu lt Performing Organization Address [facility] Co de Phone Number [facility] [address] [place] [address], [facility] [address] [address] * Lipid Panel (2022 8:35 AM PATTERN MARKING SUPERVISOR) Triglycerides 98 mg/dL 2022 10:39 AM PATTERN MARKING SUPERVISOR [facility] Comment: ----REFERENCE VALUE---- Normal: <150 mg/dL Borderline High: 150-199 mg/dL High: 200-499 mg/dL Very High: > or =500 mg/dL Cholesterol, Total 147 mg/dL 2021 10:39 AM PATTERN MARKING SUPERVISOR [facility] Comment: ----REFERENCE VALUE---- Desirable: < 200 mg/dL Borderline High: 200 - 239 mg/dL High: > or = 240 mg/dL Cholesterol, LDL, Calculated 88 mg/dL 2022 10:39 AM PATTERN MARKING SUPERVISOR [facility] Comment: ----REFERENCE VALUE---- Desirable: <100 mg/dL Above Desirable: 100-129 mg/dL Borderline High: 130-159 mg/dL High: 160-189 mg/dL Very High: >=190 mg/dL ----ADDITIONAL INFORMATION---- LDL cholesterol calculated using the Boyd/NIH equation. Cholesterol, HDL 41 >=40 mg/dL 10/20/20 10:39 AM PATTERN MARKING SUPERVISOR [facility] Cholesterol, Non-HDL, Calculated 106 mg/dL 2022 10:39 AM PATTERN MARKING SUPERVISOR [facility] Comment: ----REFERENCE VALUE---- Desirable: <130 mg/dL Above Desirable: 130-159 mg/dL Borderline High: 160-189 mg/dL High: 190-219 mg/dL Very High: > or =220 mg/dL Fasting (8 HR or more) Yes 2022 10:13 AM PATTERN MARKING SUPERVISOR NPR Blood (Blood, Venous) 2022 8:35 AM PATTERN MARKING SUPERVISOR 2022 10:13 AM PATTERN MARKING SUPERVISOR Bryan Uribe M.D. LAB BLOOD ADD-ON Final Result [facility] [address] [place] [address], [facility] [address] [place] [address] * HCV Ab Scrn w/Reflex to HCV PCR, Serum (2022 8:35 AM PATTERN MARKING SUPERVISOR) HCV Ab Screen, S Negative Negative 10/21/2022 12:31 PM PATTERN MARKING SUPERVISOR [facility] Comment:Iruwna-cf-hddqez rat io is <1.00. Blood (Blood, Venous) 2022 8:35 AM PATTERN MARKING SUPERVISOR 10/21/2022 12:31 PM PATTERN MARKING SUPERVISOR Bryan Uribe M.D. LAB MICROBIOLOGY - BLOOD ORDERA BLES Final Result [facility] [address] [place] [address] [place] [address] * COLONOSCOPY (07/03/2022 9:11 AM CDT) Narrative Procedure Note Geetha Spicer M.D. - 07/03/2022 9:11 AM CDT [facility] Patient Name: Rey Jenkins Procedure Date: 07/03/2022 9:11 AM Date of : 1965 Age: 56 Gender: Male Procedure: Colonoscopy Providers: Geetha Spicer MD, Bryan Uribe MD (Ordering Provider) Referring Provider: Bryan Uribe MD Pre-op Diagnoses: Positive Cologuard test Post-op Diagnoses: - Diverticulosis in the sigmoid colon. - One 3 mm polyp at the splenic flexure, removed with a jumbo cold forceps. Resected and retrieved. - The examination was otherwise normal on direct and retroflexionviews. Recommendation: - Discharge patient to home. - High fiber diet. - Await pathology results. - Anticipate follow up colonoscopy to be completed in 7-10 years, kriss determined by pathology. Follow up recommendations for patients with polyps identified during colonoscopy are impacted by several factors including polyp characteristics (size, number and histology),adequacy of colonic preparation and pertinent family history. For [facility] providers, detailed recommendations are available as an AskMayoExpert Care Process Model: <<[email or web address]>. Theabove is an interim recommendation assuming adenomatous pathology,referring provider should refer to [facility] to finalize repeat recommendations. Findings: The perianal and digital rectal examinations were normal. A few small-mouthed diverticula were found in the sigmoid colon. A 3 mm polyp was found in the splenic flexure. The polyp was semi-sessile. The polyp was removed with a jumbo cold forceps.Resection and retrieval were complete. The exam was otherwise without abnormality on direct and retroflexion views. Medicines: Propofol per Anesthesia Estimated Blood Loss: Estimated blood loss was minimal. Complications: No immediate complications. Procedure Details: The patient was seen, evaluated, and history reviewed. Airway and heart and lung exams were performed and were satisfactory for plannedsedation care. The risks, benefits and alternatives for the procedure and sedation were discussed andinformed consent was obtained. A procedural pause was conducted in the presence of assisting personnelto verify the correct patient identity and procedureto be performed. Throughout the procedure, the patient's blood pressure, pulse, and oxygen saturations were monitored continuously. The Colonoscope was introduced under directvision through the anus and advanced to the cecum, identified by appendiceal orifice and ileocecal valve. The colonoscopy was performed with ease.The patient tolerated the procedure well. The qualityof the bowel preparation was evaluated using theBBPS ([place] Bowel Preparation Scale) with scores of: Right Colon = 2 (minor amount of residualstaining, small fragments of stool and/or opaque liquid,but mucosa seen well), Transverse Colon = 2 (minor amount of residual staining, small fragments of stool and/or opaque liquid, but mucosa seen well) and Left Colon = 3 (entire mucosa seen well withno residual staining, small fragments of stool or opaque liquid). The total BBPS score equals 7.The quality of the bowel preparation was good. Scope insertion time was 6 minutes. Scope withdrawaltime was 17 minutes. Sedation: Anesthesia was administered by an anesthesia professional. Thefollowing parameters were monitored: oxygen saturation, heart rate, blood pressure, respiratory rate, EKG, adequacy of pulmonary ventilation,and response to care. Geetha Spicer MD 07/03/2022 9:16:28 AM Number of Addenda: 0 Note Initiated On: 07/03/2022 9:11 AM ADDENDUM: Pathology reviewed. Based on risk stratification and the pathology,recommend repeat colonoscopy in 7-10 years. FINAL DIAGNOSIS A. Colon biopsy, transverse colon, polyp: - Tubular adenoma Bryan Uribe M.D. GI PROCEDURE ORDERABLES Edited Result - Final * (ABNORMAL) Cologuard-Sent Out Lab (08/27/2021 10:40 AM CDT) Result Positive( A) Negative 09/08/2021 2:55 AM CDT [facility] Comment: POSITIVE TEST RESULT. A positive Cologuard result should be followed with a colonoscopy or visual examination of the colon. The normal value (reference range) for this assay is negative. TEST DESCRIPTION: Composite algorithmic analysis of stool DNA-biomarkers with hemoglobin immunoassay. ?? Quantitative values of individual biomarkers are not reportable and are not associated with individual biomarker result reference ranges. Cologuard is intended for colorectal cancer screening of adults of either sex, 45 years or older, who are at average-risk for colorectal cancer (CRC). Cologuard has been approved for use by the U.S. FDA. The performance of Cologuard was established in a cross sectional study of average-risk adults aged 50-84. Cologuard performance in patients ages 45 to 49 years was estimated by sub-group analysis of near-age groups. Colonoscopies performed for a positive result may find as the most clinically significant lesion: colorectal cancer [4.0%], advanced adenoma (including sessile serrated polyps greater than or equal to 1cm diameter) [20%] or non- advanced adenoma [31%]; or no colorectal neoplasia [45%]. These estimates are derived from a prospective cross-sectional screening study of 10,000 individuals at average risk for colorectal cancer who were screened with both Cologuard and colonoscopy. (Aleksandar Robledo et al, N Engl J Med 2014;370(14):2425-5889.) Cologuard may produce a false negative or false positive result (no colorectal cancer or precancerous polyp present at colonoscopy follow up). A negative Cologuard test result does not guarantee the absence of CRC or advanced adenoma (pre-cancer). The current Cologuard screening interval is every 3 years. ([place] [employer] and U.S. Multi-Society Task Force). Cologuard performance data in a 10,000 patient pivotal study using colonoscopy as the reference method can be accessed at the following location: [email or web address].com/results. Additional description of the Cologuard test process, warnings and precautions can be found at www.[employer].com. Stool (Stool) 08/27/2021 10: 40 AM CDT 08/28/2021 10:54 PM CDT Bryan Uribe M.D. LAB BODY FLUIDS AND STOOLS NEGAR BARRIOS Final Result [employer] [address] [place] [address] [facility] [employer] [address] [facility], [address] [place] [address] from Last 3 Months or Most Recently Relevant to Health Maintenance Insurance [employer] Advance Directives For more information, please contact: [phone] * Full Code (Latest Code Status on File) Date Activated Date Inactivated Comments 07/03/2022 9:20 AM 07/03/2022 12:00 PM Question Answer Comments Full Code: Not Discussed Due to: Patient not available * Full Code Date Activated Date Inactivated Comments 07/03/2022 8:06 AM 07/03/2022 9:20 AM Question Answer Comments Full Code: Not Discussed Due to: Patient not available Care Teams [place] Relationship Specialty Start Date End Date Bryan Uribe M.D. [address] [place] [place] [id number] PCP - General Family Medicine 04/10/24
--- OUTSIDE RECORDS SUMMARY | 2024-09-11 23:08 | XMS_ITS | Clinical Summary ---
Author Organization [facility] Address [address] [place] [address] Care Team Providers Care Mechatronics Technologist Name Role Phone Bryan Uribe M.D. Primary Care Provider [phone] Source Comments Patient records contain information from all sites at [facility]. For routine questions regarding patient records, call [phone] during business hours, M-F 8:00 AM - 5:00 PM Central Time. Record requests for emergency care only can be directed to [phone] at any time.[facility] Allergies Active Allergy Reactions Criticality Noted Date [...] PM CDT): Currently under the care of [facility]. MRI of the left knee completed [...] mm right foraminal disc protrusion. There is yyro-ln-mtpwvhva spondylosis through the rest of the lumbar spine without high-grade stenosis. Currently under the care of [facility]. Reported planned surgical management with spine [...] months. Assessment & Plan (11/20/2023 4:36 PM ADMINISTRATIVE PROFESSIONAL): Indication for opiate pain medication: Cervical radiculopathy. Continue Cymbalta 30 mg twice a day for pain management. Current medication: Oxycodone for cervical radiculopathy. Number prescribed per month: 60 Expected duration: To be determined Controlled substance agreement signed: 01/22/2023 Clinic follow up recommended every 3 months. Radiculopathy Cervical Seventh 07/12/2022 Assessment & Plan (07/08/2024 1:19 PM CDT): Previously under the care of [facility]. Now under the care of [facility]. Cervical spondylosis without myelopathy. Status post [...] CDT): Previously under the care of [facility]. Cervical spondylosis without myelopathy. Status post medial branch nerve block 05/2023. On chronic opiate therapy with oxycodone 5 mg twice a day. Assessment & Plan (11/20/2023 4:34 PM ADMINISTRATIVE PROFESSIONAL): Previously under the care of [facility]. Cervical spondylosis without myelopathy. Status post medial branch nerve block 05/2023. On chronic opiate therapy with oxycodone 5 mg twice a day. Diabetes Mellitus Type 2 Peripheral Neuropathy 0 05/29/2016 Assessment & Plan (11/20/2023 4:35 PM ADMINISTRATIVE PROFESSIONAL): Diabetes appears appears poorly controlled. Medications: Continue [...] to get the insulin and semaglutide. Unfortunately [facility] is unable to receive prescriptions at the [...] 02/28/2016 Assessment & Plan (11/20/2023 4:29 PM ADMINISTRATIVE PROFESSIONAL): He was encouraged to try to continue efforts at losing weight. He will continue Ozempic 2mg weekly. We discussed lifestyle modification to manage obesity. The overall health benefits of weight loss were reviewed. Hyperlipidemia 08/25/2014 Assessment & Plan (11/20/2023 4:31 PM ADMINISTRATIVE PROFESSIONAL): Lipids are appears adequately controlled. Medication recommendations: Continue Arovastatin 40mg daily. Cholesterol management goals were discussed. Lifestyle modification recommendations to improve cholesterol were reviewed. Plan for annual lipid monitoring. Hypertensive Chronic Kidney Disease With Stage 1 Through Stage 4 Chronic Kidney Disease, Or Unspecified Chronic Kidney Disease 10/27/2013 Assessment & Plan (11/20/2023 4:31 PM ADMINISTRATIVE PROFESSIONAL): Blood pressure appears well controlled. Medications recommendations: [...] (09/09/2021): Added automatically from request for surgery [id number] Clostridium Difficile Infection 06/29/2016 09/18/2017 Diabetes Mellitus Type 2 Wit h Diabetic Nephropathy 05/23/2016 10/09/2023 Ureterolithiasis 03/01/2016 09/18/2017 Stone Kidney 10/27/2013 09/18/2017 Encounters Date Type Department Care Team Description 09/09/2024 Refill Department of Family Medicine in [place] [address] [place] [address] Bryan Uribe M.D. Med Refill 08/12/2024 Refill Department of Family Medicine in [place] [address] [place] [address] Bryan Uribe M.D. Med Refill 07/16/2024 Clinical Communication Department of Family Medicine in [place] [address] [place] [address] Bryan Uribe M.D. Welcome To Medicare 07/08/2024 1:00 PM CDT Office Visit Department of Family Medicine in [place] [address] [place] [address] Bryan Uribe M.D. Chronic Pain Syndrome (Primary Dx); Radiculopathy Cervical Seventh; Pain Low Back Unspecified; Pain Knee Left 07/08/2024 11:07 AM CDT - 07/08/2024 11:59 PM CDT Hospital Encounter Department of Laboratory Medicine in [place] [address] [place] [address] Bryan Uribe M.D. Hypertensive Chronic Kidney Disease With Stage 1 Through Stage 4 Chronic Kidney Disease, Or Unspecified Chronic Kidney Disease; Chronic Pain Syndrome Discharge Disposition: Home or Self Care 06/16/2024 Refill Department of Family Medicine in [place] [address] [place] [address] Bryan Uribe M.D. Med Refill from Last 3 Months Immunizations Name Administration Dates Next Due HepB Adult 05/02/2023(Deferred: Patient Ref used) PPSV23 05/02/2023(Deferred: Patient Ref used) RZV (SHINGRIX) 05/02/2023(Deferred: Patient Ref used) SARS-COV-2 (COVID-19) - PFIZ ER (Discontinued)(12 years or older) 05/02/2023(Deferred: Patient Refused) Tdap 05/02/2023(Deferred: Patient Refused),11/06/2012,11/07/2011 Family History Medical History Relation Name Comments Leukemia Maternal Grandmother Galina tello Coronary artery disease Mother leatha bhardwaj Diabetes Mother leatha bhardwaj Hyperlipidemia Mother leatha bhardwaj Kidney cancer Mother leatha bhardwaj Kidney disease Mother leatha bhardwaj Leukemia Mother's Brother Uche omer Relation Name Status Comments Father Maternal Grandmother Galina tello Mother leatha bhardwaj Mother's Brother Uche tello Social History Tobacco Use Types Packs/Day Years [...] week 07/12/2022 How often do you attend [facility]? Never 07/12/2022 Do you belong to any clubs o r organizations such as yazidism groups, unions, fraternal or athletic groups, or [...] Answer Date Recorded PHQ-2 Score 2 03/[facility]/2024 [facility] Questionnaire Answer Date Recorded [...] your living situation today? I have a [employer] place to live 10/09/2023 Education Answer Date Recorded What is the highest level of school you have completed or the highest degree you have received? GED or equivalent 05/2022 Sex and Gender Information Value Date Recorded Sex Assigned at Male 07/12/2022 1:04 PM CDT Legal Sex Male 4:24 PM ADMINISTRATIVE PROFESSIONAL Gender Identity Male 07/12/2022 1:04 PM CDT Sexual Orientation Straight 07/12/2022 1: 04 PM CDT Last Filed Vital Signs Vital Sign Reading Time Taken Comments Blood Pressure 110/78 07/08/2024 12:40 PM CDT Pulse 115 07/08/2024 12:40 PM CDT Temperature 36.6 ??C (97.9 ??F) 07/08/2024 12:40 PM C DT Respiratory Rate 20 10/09/2023 1:16 PM ADMINISTRATIVE PROFESSIONAL Oxygen Saturation 96% 07/08/2024 12:40 PM CDT Inhaled Oxygen Concentration - - Weight 123 kg (271 lb 13.2 oz) 07/08/2024 12:40 PM CDT Height 184 cm (6' 0.44) 07/08/2024 12:40 PM CDT Body Mass Index 36.42 07/08/2024 12:40 PM CDT Plan of Treatment Upcoming Encounters Date Type Department Care Team (Late st Contact Info) Description 10/08/2024 1:00 PM ADMINISTRATIVE PROFESSIONAL Comprehensive Visit Department of Family Medicine in [place], [place] [address] [place] [address] Bryan Uribe M.D. [address] [place] [address] Health Maintenance Due Date Last Done Comments CT Colonography 1964 Pneumococcal vaccine (0-64 years) (1 of 2 - PCV) 1970 Hepatitis B Vaccines (1 of 3 - 19+ 3-dose series) 1983 Zoster Vaccines (1 of 2) 2014 Diabetes Education 04/18/2017 12/22/2015 DTaP,Tdap,and Td Vaccines (3 - Td or Tdap) 11/06/2022 11/06/2012, 11/07/2011 Urine Albumin 2023 2022, 10/05, 08/16/2020, Additional history exists Diabetic Office Visit with Foot Exam 01/23/2024 01/22/2023, 01/22/2023, 01/22/2023, Additional history exists COVID-19 Vaccine ( season) 2024 Influenza Vaccine (#1) 2024 Cologuard 09/08/2024 09/08/2021, 08/27/2021 PEG assessment for Opioid therapy 10/07/2024 07/08/2024 Hemoglobin A1C 10/14/2024 07/15/2024, 03/0 02/2024, 01/07/2024, Additional history exists Creatinine Level (Kidney Function Test) 01/06/2025 01/07/2024, 10/09/2023, 2022, Additional history exists Sodium Level 01/06/2025 01/07/2024, 1203/2023, 2022, Additional history exists Controlled Substance Agreement 03/25/2025 03/25/2024 Controlled Substance Monitoring (PHQ-9) 03/25/2025 03/25/2024 Generalized Anxiety (SUZIE-7) 03/25/2025 03/25/2024 Opioid Risk Tool (ORT) 03/25/2025 03/25/2024 Visit: Chronic Disease, age 18+ 03/25/2025 03/25/2024, 11/20/2023 Dilated Eye Exam 04/28/2025 04/28/2024, 12/22/2015 Office Visit for Blood Pressure Check / Re-check 07/08/2025 07/08/2024 Controlled Substance Monitoring 07/10/2025 07/10/2024 Potassium Level 07/15/2025 07/15/2024, 03/0 02/2024, 10/09/2023, Additional history exists Opioid Use Disorder (OUD) Screening 07/22/2025 11/20/2023 Colonoscopy 07/03/2027 07/03/2022, 07/03/2022 Colorectal Cancer Surveillance 07/03/2027 Lipid (Cholesterol) Screening 2027 2022, 10/21/2021, 11/06/2018, Additional history exists Hepatitis C Screening Completed 2022 Depression Screening (Annual PHQ-2) Completed 03/25/2024, 03/25/2024 IPV Vaccines Aged Out No longer eligi ble based on patient's age to complete this topic Procedures Procedure Name Priority Date/Time Associated Diagnosis Comments CONTROLLED SUBSTANCE MONITORING, U Routine 07/08/2024 11:26 AM CDT Chronic Pain Syndrome EXTM HEMOGLOBIN A1C, B Routine 01/07/2024 BASIC METABOLIC PANEL, S/P Routine 10/09/2023 1:52 PM ADMINISTRATIVE PROFESSIONAL Hypertension And Chronic Kidney Disease Stage 1 ALBUMIN, RANDOM, U Routine 2022 8: 48 AM ADMINISTRATIVE PROFESSIONAL Diabetes Mellitus Type 2 Peripheral Neuropathy (HCC) HCV AB SCRN W/REFLEX TO HCV PCR, S Routine 2022 8:35 AM ADMINISTRATIVE PROFESSIONAL Screening Test Laboratory LIPID PANEL, S Routine 2022 8:35 AM ADMINISTRATIVE PROFESSIONAL Hyperlipidemia COLONOSCOPY 07/03/2022 9:11 AM CDT COLOGUARD Routine 08/27/2021 10:40 AM CDT Screening Cancer Colon from Last 3 Months or Most Recently Relevant to Health Maintenance Results * (ABNORMAL) Controlled Substance Monitoring Panel, Urine (07/08/2024 11:26 AM CDT) List patient's current medications Not provided 10:02 PM T [facility] Comment: ----ADDITIONAL INFORMATION---- Accuracy and completeness of declared medications on reports solely dependent on information submitted by client. Creatinine, [place], U 221.3 mg/dL 4 8:47 AM T [facility] Specific [place] 1.030 07/09/20 2 4 8:47 AM CDT [facility] pH 5.3 4 8:47 AM T [facility] Oxidants Negative Cutoff: 200 mg/L 4 8:47 AM T [facility] Comment Normal 4 8:47 AM CDT [facility] Barbiturates Negative Cutoff: 200 ng/mL 4 8:47 AM T [facility] Cocaine Negative Cutoff: 150 ng/mL 4 8:47 AM T [facility] Comment: This cocaine immunoassay targets benzoylecgonine the primary metabolite of cocaine. Tetrahydrocannabinol Negative Cutoff: 50 ng/mL 4 8:47 AM T [facility] Comment: This immunoassay targets delta-9 tetrahydrocannabinol carboxylic acid (THC-COOH), a metabolite of delta-9 tetrahydrocannabinol the main psychoactive ingredient of marijuana. ----ADDITIONAL INFORMATION---- This report is intended for use in clinical monitoring or management of patients. ??It is not intended for use in employment-related testing. Codeine Not Detected Cutoff: 25 ng/mL 4 10:51 AM T [facility] Comment:Tylenol 3 Mmizlje-3-qyjs-glucuro nide Not Detected Cutoff: 100 ng/mL 4 10:51 AM T [facility] Comment:Metabolite of codein e Morphine Not Detected Cutoff: 25 ng/mL 4 10:51 AM CDT [facility] Comment: Julia Ruiz, MS Contin; Also a minor metabolite (10%) of codeine and can be seen in low concentrations (<2,000 ng/mL) with poppy seed ingestion. Wuwlicni-5-huxd-glucur onide Not Detected Cutoff: 100 ng/mL 4 10:51 AM CDT [facility] Comment:Metabolite of morphi ne 6-monoacetylmorphine Not Detected Cutoff: 25 ng/mL 4 10:51 AM CDT [facility] Comment:Metabolite of heroin Hydrocodone Not Detected Cutoff: 25 ng/mL 4 10:51 AM CDT [facility] Comment: Lortab, Selma, Vicodin; Also a very minor metabolite of [...] and a minor (<5%) metabolite of morphine. Efjfswkwpraeg-5-ycmx-g lucuronide Not Detected Cutoff: 100 ng/mL 4 10:51 AM CDT [facility] Comment:Metabolite of hydrom orphone Oxycodone Present(A) Cutoff: 25 ng/mL 4 10:51 AM CDT [facility] Comment:Endocet, Percocet, O xycontin Noroxycodone Present(A) Cutoff: 25 ng/mL 4 10:51 AM CDT [facility] Comment:Metabolite of oxycod one Oxymorphone Not Detected Cutoff: 25 ng/mL 4 10:51 AM CDT [facility] Comment:Numorphan, Opana; Al so a metabolite of oxycodone. Uzteevlzwtr-9-bidx-glu curonide Present(A) Cutoff: 100 ng/mL 4 10:51 [...] 25 ng/mL 4 10:51 AM CDT [facility] Comment:Narcan Jqimkvpi-7-pqnb-glucur onide Not Detected Cutoff: 100 ng/mL 4 [...] AM CDT [facility] Comment:Metabolite of tapent adol Izsbwchbzl-lrqi-rmrdys onide Not Detected Cutoff: 100 ng/mL 4 10:51 AM CDT [facility] Comment:Metabolite of tapent adol Buprenorphine Not Detected Cutoff: 5 ng/mL 4 10:51 AM CDT [facility] Comment:Buprenex, Suboxone Norbuprenorphine Not Detected Cutoff: 5 ng/mL 4 10:51 AM CDT [facility] Comment:Metabolite of bupren orphine Norbuprenorphine glucuronide Not Detected Cutoff: 20 ng/mL 4 10:51 AM CDT [facility] Comment:Metabolite of bupren orphine Opioid Interpretation Test detected the presence of oxycodone and several metabolites (noroxycodone, noroxymorphone, and feuglsmdrsu-5-bih a-glucuronide). Suspect use of oxycodone and/or oxymorphone within the past three days. 4 10:51 AM T [facility] Comment: ----ADDITIONAL INFORMATION---- This test was developed and its performance characteristics determined by [facility] in a manner consistent with CLIA requirements. This test has not been cleared or approved by the U.S. Food and Drug Administration. Alprazolam Not Detected Cutoff: 10 ng/mL 4 8:44 AM CDT [facility] Comment:Xanax Alpha-Hydroxyalprazola m Not Detected Cutoff: 10 ng/mL 4 8:44 AM CDT [facility] Comment:Metabolite of Alpraz olam Alpha-Hydroxyalprazola m Glucuronide Not Detected Cutoff: 50 ng/mL 4 8:44 AM CDT [facility] Comment:Metabolite of Alpraz olam Chlordiazepoxide Not Detected Cutoff: 10 ng/mL 4 8:44 AM CDT [facility] Comment:Librium Clobazam Not Detected Cutoff: 10 ng/mL 4 8:44 AM CDT [facility] Comment:Frisium, Onfi N-Desmethylclobazam Not Detected Cutoff: 200 ng/mL 4 8:44 AM CDT [facility] Comment:Metabolite of Clobaz am Clonazepam Not Detected Cutoff: 10 ng/mL 4 8:44 AM CDT [facility] Comment:Klonopin, Rivotril 7-aminoclonazepam Not Detected Cutoff: 10 ng/mL 4 8:44 AM CDT [facility] Comment:Metabolite of Clonaz epam Diazepam Not Detected Cutoff: 10 ng/mL 4 8:44 AM CDT [facility] Comment:Valium Nordiazepam Not Detected Cutoff: 10 ng/mL 4 8:44 AM CDT [facility] Comment:Metabolite of Chlord iazepoxide, Diazepam, or Prazepam. Flunitrazepam Not Detected Cutoff: 10 ng/mL 4 8:44 AM CDT [facility] Comment:Rohypnol 7-aminoflunitrazepam Not Detected Cutoff: 10 ng/mL 4 8:44 AM CDT [facility] Comment:Metabolite of Flunit razepam Flurazepam Not Detected Cutoff: 10 ng/mL 4 8:44 AM CDT [facility] Comment:Dalmane 2-Hydroxy Ethyl Flurazepam Not Detected Cutoff: 10 ng/mL 4 8:44 AM CDT [facility] Comment:Metabolite of Fluraz epam Lorazepam Not Detected Cutoff: 10 ng/mL 4 8:44 AM CDT [facility] Comment:Ativan Lorazepam Glucuronide Not Detected Cutoff: 50 ng/mL 4 8:44 AM CDT [facility] Comment:Metabolite of Loraze naeem Midazolam Not Detected Cutoff: 10 ng/mL 4 8:44 AM CDT [facility] Comment:Versed Alpha-Hydroxy Midazolam Not Detected Cutoff: 10 ng/mL 4 8:44 AM CDT [facility] Comment:Metabolite of Midazo harris Oxazepam Not Detected Cutoff: 10 ng/mL 4 8:44 AM CDT [facility] Comment:Serax; Also a metabo lite of Chlordiazepoxide, Diazepam, or Temazepam. Oxazepam Glucuronide Not Detected Cutoff: 50 ng/mL 4 8:44 AM CDT [facility] Comment:Metabolite of Oxazep am Prazepam Not Detected Cutoff: 10 ng/mL 4 8:44 AM CDT [facility] Comment:Centrax Temazepam Not Detected Cutoff: 10 ng/mL 4 8:44 AM CDT [facility] Comment:Restoril; Also a met abolite of Diazepam. [...] 4 8:44 AM CDT [facility] Comment:Ambien Zolpidem [place]ktown-6-Wsfisdgdfl acid Not Detected Cutoff: 10 ng/mL 4 8:44 AM CDT [facility] Comment:Metabolite of Zolpid em Benzodiazepine Interpretation No benzodiazepines were detected. The absence of expected drug(s) and/or drug metabolite(s) may indicate non-compliance, altered pharmacokinetics, inappropriate timing of specimen collection relative to drug administration, diluted/adulterat ed urine, or limitations of testing. 4 8:44 AM T [facility] Comment: ----ADDITIONAL INFORMATION---- This test was developed and its performance characteristics determined by [facility] in a manner consistent with CLIA requirements. This test has not been cleared or approved by the U.S. Food and Drug Administration. Methamphetamine Not Detected Cutoff: 100 ng/mL 4 11:12 AM CDT [facility] Comment:Desoxyn Amphetamine Not Detected Cutoff: 100 ng/mL 4 11:12 AM CDT [facility] Comment: Dyanavel XR, Adzenys ER, Adderall, Vyvanse; Also a metabolite of methamphetamine 3,4-methylenedioxymeth amphetamine (MDMA) Not Detected Cutoff: 100 ng/mL 4 11:12 AM CDT [facility] 3,5-otegjdsnhzypxg-W-e thylamphetamine (MDEA) Not Detected Cutoff: 100 ng/mL 4 11:12 AM CDT [facility] 3,4-methylenedioxyamph etamine (MDA) Not Detected Cutoff: 100 ng/mL 4 11:12 AM CDT [facility] Comment:Also a metabolite of MDMA and/or MDEA Ephedrine Not Detected Cutoff: 100 ng/mL 4 11:12 AM CDT [facility] Pseudoephedrine Not Detected Cutoff: 100 ng/mL 4 11:12 AM T [facility] Comment:Sudafed Phentermine Not Detected Cutoff: 100 ng/mL 4 11:12 AM CDT [facility] Comment:Adipex-P, Lomaira, Q symia Phencyclidine (PCP) Not Detected Cutoff: 20 ng/mL 4 11:12 AM CDT [facility] Methylphenidate Not Detected Cutoff: 20 ng/mL 4 11:12 AM CDT [facility] Comment:Ritalin, Concerta Ritalinic acid Not Detected Cutoff: 100 ng/mL 4 11:12 AM T [facility] Comment:Metabolite of methyl phenidate Stimulant Interpretation No stimulants were detected. The absence of expected drug(s) and/or drug metabolite(s) may indicate non-compliance, altered pharmacokinetics, inappropriate timing of specimen collection relative to drug administration, diluted/adulterat ed urine, or limitations of testing. 11:12 AM [facility] Comment: ----ADDITIONAL INFORMATION---- This test was developed and its performance characteristics determined by [facility] in a manner consistent with CLIA requirements. This test has not been cleared or approved by the U.S. Food and Drug Administration. Urine (Urine, Voided) 07/08/2024 11:26 AM CDT 07/08/2024 10:02 PM CDT Bryan Uribe M.D. LAB URINE ORDERABLES Final Resu lt [facility] [place] [address] [address] [facility] [address] [id number] [facility] [address] [place] [id number] * (ABNORMAL) Basic Metabolic Panel (10/09/2023 1:52 PM ADMINISTRATIVE PROFESSIONAL) [facility] Signature Potassium, P 4.4 3.6 - 5.2 mmol/L 10/09/2023 4:06 PM ADMINISTRATIVE PROFESSIONAL [facility] Sodium, P 133(L) 135 - 145 mmol/L 10/09/2023 4:06 PM ADMINISTRATIVE PROFESSIONAL NPR[facility] Chloride, P 101 98 - 107 mmol/L 10/09/2023 4:06 PM ADMINISTRATIVE PROFESSIONAL NPR[facility] Bicarbonate, P 22 22 - 29 mmol/L 10/09/2023 4:06 PM ADMINISTRATIVE PROFESSIONAL [facility] Anion Gap, P 10 7 - 15 10/09/2023 4:06 PM ADMINISTRATIVE PROFESSIONAL [facility] BUN (Blood Urea Nitrogen), P 23 8 - 24 mg/dL 10/09/2023 4:06 PM ADMINISTRATIVE PROFESSIONAL NPR[facility] Creatinine 0.69(L) 0.74 - 1.35 mg/dL 10/09/2023 4:06 PM ADMINISTRATIVE PROFESSIONAL [facility] Estimated GFR (eGFR) >90 >=60 mL/min/BSA 10/09/2023 4:06 PM ADMINISTRATIVE PROFESSIONAL [facility] Comment: Estimated GFR calculated using the 2020 CKD_EPI creatinine equation. Calcium, Total, P 8.5(L) 8.6 - 10.0 mg/dL 10/09/2023 4:06 PM ADMINISTRATIVE PROFESSIONAL NPRG Glucose, P 280(H) 70 - 140 mg/dL 10/09/2023 4:06 PM ADMINISTRATIVE PROFESSIONAL [facility] Blood (Blood, Venous) 10/09/2023 1:52 PM ADMINISTRATIVE PROFESSIONAL 10/09/2023 3:34 PM ADMINISTRATIVE PROFESSIONAL us Tello Wood M.D. LAB BLOOD ADD-ON Final Result [facility] [address] [place] [address], [facility] NPRG [facility] [address] [place] [address] * (ABNORMAL) Albumin, [place], Urine (2022 8:48 AM ADMINISTRATIVE PROFESSIONAL) Microalbumin 100.0 mg/L 2022 10:46 AM ADMINISTRATIVE PROFESSIONAL NPRG Creatinine 124 mg/dL 2022 10:46 AM ADMINISTRATIVE PROFESSIONAL NPRG Albumin/Creatinin e Ratio 81(H) <17 mg/g 2022 10:46 AM ADMINISTRATIVE PROFESSIONAL NPRG Urine (Urine, Voided) 2022 8:48 AM ADMINISTRATIVE PROFESSIONAL 2022 10:11 AM ADMINISTRATIVE PROFESSIONAL us Bryan Uribe M.D. LAB URINE ORDERABLES Final Resu lt [facility] [address] [place] [address], [facility] NPRG [facility] [address] [place] [address] * Lipid Panel (2022 8:35 AM ADMINISTRATIVE PROFESSIONAL) Triglycerides 98 mg/dL 2022 10:39 AM ADMINISTRATIVE PROFESSIONAL [facility] Comment: ----REFERENCE VALUE---- Normal: <150 mg/dL Borderline High: 150-199 mg/dL High: 200-499 mg/dL Very High: > or =500 mg/dL Cholesterol, Total 147 mg/dL 2021 10:39 AM ADMINISTRATIVE PROFESSIONAL [facility] Comment: ----REFERENCE VALUE---- Desirable: < 200 mg/dL Borderline High: 200 - 239 mg/dL High: > or = 240 mg/dL Cholesterol, LDL, Calculated 88 mg/dL 2022 10:39 AM ADMINISTRATIVE PROFESSIONAL [facility] Comment: ----REFERENCE VALUE---- Desirable: <100 mg/dL Above Desirable: 100-129 mg/dL Borderline High: 130-159 mg/dL High: 160-189 mg/dL Very High: >=190 mg/dL ----ADDITIONAL INFORMATION---- LDL cholesterol calculated using the Boyd/NIH equation. Cholesterol, HDL 41 >=40 mg/dL 10/20/20 10:39 AM ADMINISTRATIVE PROFESSIONAL NPRG Cholesterol, Non-HDL, Calculated 106 mg/dL 2022 10:39 AM ADMINISTRATIVE PROFESSIONAL [facility] Comment: ----REFERENCE VALUE---- Desirable: <130 mg/dL Above Desirable: 130-159 mg/dL Borderline High: 160-189 mg/dL High: 190-219 mg/dL Very High: > or =220 mg/dL Fasting (8 HR or more) Yes 2022 10:13 AM ADMINISTRATIVE PROFESSIONAL NPRG Blood (Blood, Venous) 2022 8:35 AM ADMINISTRATIVE PROFESSIONAL 2022 10:13 AM ADMINISTRATIVE PROFESSIONAL Bryan Uribe M.D. LAB BLOOD ADD-ON Final Result [facility] [address] [place] [address], [place] NPRG [facility] [address] [place] [address] * HCV Ab Scrn w/Reflex to HCV PCR, Serum (2022 8:35 AM ADMINISTRATIVE PROFESSIONAL) HCV Ab Screen, S Negative Negative 10/21/2022 12:31 PM ADMINISTRATIVE PROFESSIONAL [facility] Comment:Ycxcrj-kg-smmowt rat io is <1.00. Blood (Blood, Venous) 2022 8:35 AM ADMINISTRATIVE PROFESSIONAL 10/21/2022 12:31 PM ADMINISTRATIVE PROFESSIONAL Bryan Uribe M.D. LAB MICROBIOLOGY - BLOOD ORDERA BLES Final Result [facility] [address] [place] [address] [facility] [address] [place] [address] * COLONOSCOPY (07/03/2022 9:11 AM CDT) Narrative Procedure Note Geetha Spicer M.D. - 07/03/2022 9:11 AM CDT [facility] GI Patient Name: Rey Bhardwaj Procedure Date: 07/03/2022 9:11 AM Date of [...] colonic preparation and pertinent family history. For [facility] providers, detailed recommendations are available as an AskMayoExpert Care Process Model: <<[email or web address]>. Theabove is an interim recommendation assuming adenomatous [...] the bowel preparation was evaluated using theBBPS (Lomira Bowel Preparation Scale) with scores of: Right [...] biopsy, transverse colon, polyp: - Tubular adenoma us Bryan Uribe M.D. GI PROCEDURE ORDERABLES Edited [...] screened with both Cologuard and colonoscopy. (Aleksandar Banks al, N Engl J Med 2014;370(14):2028-7300.) Cologuard may produce a false negative or false positive result (no colorectal cancer or precancerous polyp present at colonoscopy follow up). A negative Cologuard test result does not guarantee the absence of CRC or advanced adenoma (pre-cancer). The current Cologuard screening interval is every 3 years. ([place] [employer] Society and U.S. Multi-Society Task Force). Cologuard performance data in a 10,000 patient pivotal study using colonoscopy as the reference method can be accessed at the following location: [email or web address]/results. Additional description of the Cologuard test process, warnings and precautions can be found at [email or web address]. [email or web address] (Stool) 08/27/2021 10: 40 AM CDT 08/28/2021 10:54 PM CDT Bryan Uribe M.D. LAB BODY FLUIDS AND STOOLS NEGAR BARRIOS Final Result [email or web address] [address] [place] [address] [facility] [address] [place] [address], [address] [place] [address] from Last 3 Months or Most Recently Relevant to Health Maintenance Insurance [facility] [employer] INSURANCE Advance Directives For more information, please contact: [phone] * Full Code (Latest Code Status on File) Date Activated Date Inactivated Comments 07/03/2022 9:20 AM 07/03/2022 12:00 PM Question Answer Comments Full Code: Not Discussed Due to: Patient not available * Full Code Date Activated Date Inactivated Comments 07/03/2022 8:06 AM 07/03/2022 9:20 AM Question Answer Comments Full Code: Not Discussed Due to: Patient not available Care Teams Mechatronics Technologist Relationship Specialty Start Date End Date Bryan Uribe M.D. [address] [place] [address] PCP - General Family Medicine 04/10/24
--- OUTSIDE RECORDS SUMMARY | 2024-09-11 23:09 | XMS_ITS | Encounter Summary ---
Author Organization [facility] Address [address] [place] [address] Care Team Providers Care Demand Manager Name Role Phone Bryan Uribe M.D. Primary Care Provider [phone] Reason for Referral * Outpatient (Routine) - Authorized Specialty Diagnoses / Procedures Referred By Tenisha mccoy Referred To Contact Family Medicine Bryan Uribe M.D. [address] [place] [address] Phone: tel: fax: [facility] Region Referral ID Status Reason Start Date Expiration Date V isits Requested Visits Authorized [id number] Authorized 07/08/2024 01/07/2026 1 1 Reason for Visit * Reason Comments Med Management Pain management foll ow up * Outpatient (Routine) - Closed Specialty Diagnoses / Procedures Referred By Tenisha mccoy Referred To Contact Family Medicine Diagnoses Chronic Pain Syndrome Bryan Uribe M.D. [address] [place] [address] Phone: tel: fax: [facility] Referral ID Status Reason Start Date Expiration Date Visits Re quested Visits Authorized [id number] Closed 03/25/2024 09/24/2025 1 1 Encounter Details Date Type Department Care Team (Late st Contact Info) Description 07/08/2024 1:00 PM CDT Office Visit Department of Family Medicine in [place], [place] [address] [place] [address] Bryan Uribe M.D. [address] [place] [id number] Chronic Pain Syndrome (Primary Dx); Radiculopathy Cervical Seventh; Pain Low Back Unspecified; Pain Knee Left Social History Tobacco Use Types Packs/Day Years [...] 07/12/2022 How often do you attend chur [facility] or adventism services? Never 07/12/2022 Do you belong to any clubs o r organizations such as baptism groups, unions, fraternal or athletic groups, or [...] Answer Date Recorded PHQ-2 Score 2 03/25/2024 [facility] - Occupational Stress [...] your living situation today? I have a [place] place to live 10/09/2023 Education Answer Date Recorded What is the highest level of school you have completed or the highest degree you have received? 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 Gender Identity Male 07/12/2022 1:04 PM CDT Sexual Orientation Straight 07/12/2022 1: 04 PM CDT documented as of this encounter Last Filed Vital Signs Vital Sign Reading Time Taken Comments Blood Pressure 110/78 07/08/2024 12:40 PM CDT Pulse 115 07/08/2024 12:40 PM CDT Temperature 36.6 ??C (97.9 ??F) 07/08/2024 12:40 PM C DT Respiratory Rate - - Oxygen Saturation 96% 07/08/2024 12:40 PM CDT Inhaled Oxygen Concentration - - Weight 123 kg (271 lb 13.2 oz) 07/08/2024 12:40 PM CDT Height 184 cm (6' 0.44) 07/08/2024 12:40 PM CDT Body Mass Index 36.42 07/08/2024 12:40 PM CDT documented in this encounter Progress Notes * Bryan Uribe M.D. - 07/08/2024 1:00 PM CDT OFFICE VISIT [facility] SUBJECTIVE CHIEF COMPLAINT/REASON FOR VISIT Med Management (Pain management follow up ) The patient verbally consented to an audio recording of their visit to assist with the completion of documentation. HISTORY OF PRESENT ILLNESS Rey Jenkins is a 58 y.o. male who presents for follow-up of chronic pain. He has chronic medical comorbidities including diabetes mellitus type 2, hypertension, dyslipidemia, obesity and chronic pain syndrome. He recently transferred his primary care to an outside clinic, for insurance purposes. He has elected to continue chronic pain management with me. History of Present Illness The patient, with a history of arthritis, diabetic ulcers, and a recent diagnosis of a herniated disc, presents with severe back pain. The pain was first noticed approximately a month ago when he experienced a sudden, intense pain in the back while bending over at a store. The pain was described mary 'somebody grabbed my nerve with the Visegrips,' and was severe enough to cause him to drop to the ground. The patient sought medical attention and was informed that he had a herniated disc in the lower back, requiring surgical intervention. He reports that the pain has since decreased from a '15' to a 'very sore' level, but is still significant. The pain radiates down the right leg, causing numbness and weakness. This has resulted in several falls due to the leg giving out. In addition to the back pain, he also reports ongoing neck pain. Previous imaging revealed extensive arthritis in the neck, making surgical intervention unfeasible. His current pain management regimen includes oxycodone, taken twice daily, with an occasional thirddose if the pain is particularly severe. However, he reports that the oxycodone does not significantly alleviate the back pain. He also takes Cymbalta for diabetic ulcers, but reports that it does not help with the neck or back pain. He also has a history of knee issues, with a previous meniscus surgery and ongoing treatment for potential knee replacement. He is currently receiving Synvisc shots for this issue. His multiple pain issues have significantly impacted his sleep and overall quality of life. His problem list, allergies, and current medications were reviewed and can be viewed in this encounter. OBJECTIVE VITAL SIGNS Blood pressure 110/78, pulse (!) 115, temperature 36.6 ??C, temperature source Temporal, height 184cm, weight 123 kg, SpO2 96%. PHYSICAL EXAMINATION Constitutional Appearance: Normal appearance. He is not ill-appearing. Neurological Mental Status: He is alert. Assessment & Plan Chronic Pain Syndrome Indication for opiate pain medication: Cervical radiculopathy. [...] needed for pain Indication: Chronic Pain/Nonacute Pain. Radiculopathy Cervical Seventh Previously under the care of [facility]. Now under the care of [facility]. Cervical spondylosis without myelopathy. Status post medial branch nerve block 05/2023. On chronic opiate therapy with oxycodone 5 mg twice a day. Patient has reported that recently orthopedics has suggested that surgical treatment is not an option. He has elected to proceed with possible radiofrequency ablation and will continue to work with his surgical specialty team regarding management. Pain Low Back Unspecified Recent low back pain with right lower leg radiculopathy. MRI 06/27/2024 showed L4-L5 right L4 encroachment with a 19 x 7 mm acute appearing right central disc extrusion and chronic appearing 5 mm right foraminal disc protrusion. There is [id number] spondylosis through the rest of the lumbar spine without high-grade stenosis. Currently under the care of [facility]. Reported planned surgical management with spine fusion. Plan for follow-up with Orthopedics for management. He is under controlled substance agreement with [place], however when it comes to upcoming surgery, his postoperative pain will need to be managed by Orthopedics. Pain Knee Left Currently under the care of [facility]. MRI of the left knee [...] replacement in the future based on symptoms. There are no Patient Instructions on file for this visit. Bryan Uribe MD, FAAFP documented in this encounter Miscellaneous Notes * Assessment & Plan Note - Bryan Uribe M.D. - 07/08/2024 1:00 PM CDTAssociated Problem(s): Chronic Pain Syndrome Indication for opiate pain medication: Cervical radiculopathy. [...] needed for pain Indication: Chronic Pain/Nonacute Pain. * Assessment & Plan Note - Bryan Uribe M.D. - 07/08/2024 1:00 PM CDTAssociated Problem(s): Radiculopathy Cervical Seventh Previously under the care of [facility]. Now under the care of [facility]. Cervical spondylosis without myelopathy. Status post medial branch nerve block 05/2023. On chronic opiate therapy with oxycodone 5 mg twice a day. Patient has reported that recently orthopedics has suggested that surgical treatment is not an option. He has elected to proceed with possible radiofrequency ablation and will continue to work with his surgical specialty team regarding management. * Assessment & Plan Note - Bryan Uribe M.D. - 07/08/2024 1:00 PM CDTAssociated Problem(s): Pain Low Back Unspecified Recent low back pain with right lower leg radiculopathy. MRI 06/27/2024 showed L4-L5 right L4 encroachment with a 19 x 7 mm acute appearing right central disc extrusion and chronic appearing 5 mm right foraminal disc protrusion. There is dbcv-xo-tfldmbjf spondylosis through the rest of the lumbar spine without high-grade stenosis. Currently under the care of [facility]. Reported planned surgical management with spine fusion. Plan for follow-up with Orthopedics for management. He is under controlled substance agreement with me, however when it comes to upcoming surgery, his postoperative pain will need to be managed by Orthopedics. * Assessment & Plan Note - Bryan Uribe M.D. - 07/08/2024 1:00 PM CDTAssociated Problem(s): Pain Knee Left Currently under the care of [facility]. MRI of the left knee [...] replacement in the future based on symptoms. documented in this encounter Plan of Treatment Upcoming Encounters Date Type Department Care Team (Late st Contact Info) Description 10/08/2024 1:00 PM LONG DISTANCE BILLING OPERATOR Comprehensive Visit Department of Family Medicine in [place], [place] [address] [place] [id number] Bryan Uribe M.D. [address] [place] [address] Scheduled Referrals Name Type Priority Associated Diagnoses Orde r Schedule Family Medicine office visit (clinic) Outpatient Referral Routine Expected: 10/07/2024 (Approximate), Expires: 10/07/2025 documented as of this encounter Procedures Procedure Name Priority Date/Time Associated Diagnosis Comments EXTM HEMOGLOBIN A1C, B Routine 01/07/2024 documented in this encounter Results * EXT Hemoglobin A1c (01/07/2024) EXT Hemoglobin A1c, B 8.6 OTHER (SPECIFY IN TICK SEWER) Blood (Blood, Venous) 01/07/2024 us Historical Provider LAB BLOOD ADD-ON Final Resul t OTHER (SPECIFY IN TICK SEWER) N/A documented in this encounter Visit Diagnoses Diagnosis Chronic Pain Syndrome- Primary Radiculopathy Cervical Seventh Pain Low Back Unspecified Pain Knee Left documented in this encounter Additional Health Concerns Assessment Noted Time PHQ-9 Depression Total Score: 6 03/25/20 24 12:37 PM CDT documented as of this encounter Care Teams Demand Manager Relationship Specialty Start Date End Date Bryan Uribe M.D. [address] [place] [phone] PCP - General Family Medicine 04/10/24 documented as of this encounter
--- OUTSIDE RECORDS SUMMARY | 2024-09-11 23:09 | XMS_ITS | Encounter Summary ---
Author Organization [facility] Address [address] [place] [address] Care Team Providers Care Radio Program Checker Name Role Phone Bryan Uribe M.D. Primary Care Provider [phone] Reason for Visit * Reason Onset Date Comments Med Refill 08/12/2024 Encounter Details Date Type Department Care Team (Late st Contact Info) Description 08/12/2024 Refill Department of Family Medicine in [place], [place] [address] [place] [address] Bryan Uribe M.D. [address] [place] [address] Med Refill Social History Tobacco Use Types Packs/Day Years Used Date Smoking Tobacco: Never Smokeless Tobacco: Never Alcohol Use Standard Drinks/Week Comments Yes 1 [...] 07/12/2022 How often do you attend chur ch or confucianism services? Never 07/12/2022 Do you belong to any clubs o r organizations such as bahai groups, unions, fraternal or athletic groups, or [...] Answer Date Recorded PHQ-2 Score 2 03/25/2024 [facility] Answer Date [...] your living situation today? [facility] to [facility] 10/09/2023 Education Answer Date Recorded What is the highest level of school you have completed or the highest degree you have received? 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 - 08/12/2024 9:53 AM CDT R: Prescription pended for refill. S: Request from: patient B: A: Name of Medication(s) Needing Refill: oxycodone Requested Prescriptions No prescriptions requested or ordered in this encounter Additional Information: Last Appointment: 07/08/24 Future Appointment: 10/08/24 Pharmacy Verified: Yes [facility] [place] documented in this encounter Plan of Treatment Upcoming Encounters Date Type Department Care Team (Late st Contact Info) Description 10/08/2024 1:00 PM SINGING MESSENGER Comprehensive Visit Department of Family Medicine in [place], [place] [address] [place] [address] Bryan Uribe M.D. [address] [place] [address] documented as of this encounter Visit Diagnoses Diagnosis Chronic Pain Syndrome documented in this encounter Additional Health Concerns Assessment Noted Time PHQ-9 Depression Total Score: 6 03/25/20 24 12:37 PM CDT documented as of this encounter Care Teams Radio Program Checker Relationship Specialty Start Date End [place] [address] PCP - General Family Medicine 04/10/24 documented as of this encounter
--- OUTSIDE RECORDS SUMMARY | 2024-09-11 23:09 | XMS_ITS | Clinical Summary ---
Author Organization [facility] Address [place], [place] [address] Care Team Providers Care Fire Prevention Officer Name Role Phone Abhishek Thomas MD Primary Care Provider Allergies Active Allergy Reactions Criticality Noted Date Comments Metformin Diarrhea 05/23/2016 Medications Medication Sig Dispensed Refills Start Date End Date Status amLODIPine (NORVASC) 10 mg tablet Take 1 Tablet by mouth once daily. 1 Active ammonium lactate 12% topical (LACHYDRIN) 12 % lotion 1 Active atorvastatin (LIPITOR) 40 mg tablet Take 40 mg by mouth. 1 Active losartan (COZAAR) 100 mg tablet Take 1 Tablet by mouth once daily. 1 Active oxyCODONE (ROXICODONE) 5 mg immediate release tablet Take 2 Tablets by mouth every 6 hours if needed. 1 Active BD Willa 2nd Gen Pen Needle 32 gauge x 32 1 Active insulin degludec, U-100, (TRESIBA FLEXTOUCH) 100 unit/mL (3 mL) pen Inject 55 units subcutaneous every morning. 3 Active potassium chloride (K-TAB) 10 mEq extended-release tablet Take 1 Tablet by mouth three times daily with meals. 3 Active medication order composerIndicatio ns:Type 2 diabetes mellitus without complication, with long-term current use of insulin (HC) Diabetic shoes 1 unit 4 Active DULoxetine (CYMBALTA) 60 mg Delayed-release capsuleIndication s:Peripheral sensory neuropathy Take 1 Capsule (60 mg) by mouth two times daily. 180 Capsule 3 4 Active semaglutide (Ozempic) 2 mg/dose (8 mg/3 mL) pen Inject 2 mg subcutaneous once weekly. 12 mL 4 Active semaglutide (Ozempic) 2 mg/dose (8 mg/3 mL) subcutaneous pen Inject 2 mg subcutaneous once weekly. 12 mL 4 Active apixaban (ELIQUIS) 5 mg tabletIndications :Acute deep vein thrombosis (DVT) of femoral vein of left lower extremity (HC) Take 1 Tablet (5 mg) by mouth two times daily. 180 Tablet 4 Active rOPINIRole (REQUIP) 1 mg tabletIndications :RLS (restless legs syndrome) Take 1mg by mouth 2-3 hours before bedtime. 90 Tablet 3 4 Active DULoxetine (CYMBALTA) 30 mg Delayed-release capsuleIndication s:RLS (restless legs syndrome) TAKE 1 CAPSULE BY MOUTH ONCE DAILY. 21 Capsule 4 Active DULoxetine (CYMBALTA) 30 mg Delayed-release capsuleIndication s:RLS (restless legs syndrome) Take 1 Capsule (30 mg) by mouth once daily. 21 Capsule 4 09/07/20 24 Discontinued Active Problems Problem Noted Date Diagnosed Date Herniated intervertebral disc of lumbar spine Peripheral sensory neuropathy 07/15/2024 Routine health maintenance 03/25/2024 Overview (03/25/2024): Colonoscopy, 03/28, recheck 10 years HTN (hypertension) 01/01/2024 Type 2 diabetes mellitus wit hout complication, with long-term current use of insulin 01/01/2024 Anxiety and depression 01/01/2024 Hyperlipemia 01/01/2024 Encounters Date Type Department Care Team Description 09/04/2024 Refill [facility] [id number] [place] [id number] Abhishek Thomas MD Refill Request (Duloxetine) 08/18/2024 12:30 PM CDT Office Visit [facility] [id number] [place] [address] Abhishek Thomas MD Diabetes; Lab; ER Follow up (blood clots.) 08/18/2024 Travel 08/12/[address] [address] Abhishek Thomas MD ACC Order Request (annual lab work) 08/12/[address] [address] Abhishek Thomas MD Questions (appointment coming up) 08/08/2024 Orders Only [facility] Scanner 1 scan: (1-Ord) [facility], 08/08/2024 07/16/[address] [address] Jasen James PA Results 07/15/2024 10:50 AM CDT Office Visit [address] [address] Jasen James PA Pre-Op Exam (DOS: 07/22/24, Dr. Nick Baltazar, [facility], ) 07/15/2024 Travel 07/08/[address] [address] Abhishek Thomas MD Form 07/02/2024 10:40 AM CDT Office Visit [facility] [address] [place] [address] Jalyn Branham, PB Follow Up (Recheck Conjunctival inflammation OS>>OD) 07/02/2024 Travel from Last 3 Months Immunizations Name Administration Dates Next Due Tdap 11/06/2012,11/07/2011 Family History Medical History Relation Name Comments Hypertension Brother x 2 Good Health Daughter Diabetes Father Hypertension Father Heart attack Maternal Grandfather Leukemia Maternal Grandmother Diabetes Mother Heart Disease Mother Kidney disease Mother Heart attack Paternal Grandfather Good Health Son Relation Name Status Comments Brother x 2 Alive Daughter Alive Father Maternal Grandfather Maternal Grandmother Mother Alive Paternal Grandfather Paternal Grandmother Son Alive Social History Tobacco Use Types Packs/Day Years Used Date Smoking Tobacco: Never Smokeless Tobacco: Never Tobacco Cessation:Counseling Given: Yes Alcohol Use Standard Drinks/Week Comments Not Currently 0 (1 standard drink = 0.6 oz pur e alcohol) rare PHQ-2 Answer Date Recorded PHQ-2 TOTAL SCORE 0 08/18/2024 Social Connections Answer Date Recorded Do you often feel lonely or isolated from those around you? 0 01/07/2024 Financial Resource Strain Answer Date R ecorded Difficulty of Paying Living Expenses 3 01/07/2024 Difficulty of Paying Living Expenses Not on file 01/07/2024 Food Insecurity Answer Date Recorded Do you worry your food will run out before you are able to buy more? 1 01/07/2024 Transportation Needs Answer Date Record ed Does lack of transportation keep you from medica l appointments? 1 01/07/2024 Does lack of transportation keep you from work, meetings or getting things that you need? 1 01/07/2024 Housing Stability Answer Date Recorded What is your housing situation today? 1 01/07/2024 Sex and Gender Information Value Date Recorded Sex Assigned at Not on file Gender Identity Not on file Sexual Orientation Not on file Obstetrics History Last Filed Vital Signs Vital Sign Reading Time Taken Comments Blood Pressure 134/100 08/18/2024 12:33 PM CDT Pulse 116 08/18/2024 12:33 PM CDT Temperature 36.6 ??C (97.8 ??F) 07/15/2024 1 1:00 AM CDT Respiratory Rate - - Oxygen Saturation 97% 08/18/2024 12: 33 PM CDT Inhaled Oxygen Concentration - - Weight 124.9 kg (275 lb 6.4 oz) 024 12:33 PM CDT Height 185.4 cm (6' 1) 07/15/2024 11:0 0 AM CDT Body Mass Index 36.33 07/15/2024 11:00 AM CDT Plan of Treatment Upcoming Encounters Date Type Department Care Team (Late st Contact Info) Description 02/16/2025 12:55 PM CDT Office Visit [facility] [address] [place] [address] [place] [address] [place] [address] Health Maintenance Due Date Last Done Comments Pneumococcal series for age 6-64 (1 of 2 - PCV) 1970 Hepatitis B series for Diabetes (1 of 3 - 19+ 3-dose series) 1983 Zoster (shingles) series for age 50+ (1 of 2) 2014 Tetanus booster 11/06/2022 11/06/2012, 11/07/2011 COVID-19 vaccine series ( season) 2024 Influenza for age 50-64 07/06/2024 BMI (ht and wt on same day) for age 18+ 07/15/2025 07/15/2024, 01/07/2024, 11/09/2021 Depression screening for age 12+ 08/18/2025 08/18/2024, 07/16/2024, 07/15/2024, Additional history exists Lipids for age 45-75 08/18/2029 08/18/2024, 2022 (Verified in Care Everywhere or Patient Record) Colonoscopy through age 75 07/03/203207/03, 07/03/2022 (Verified in Care Everywhere or Patient Record) Tdap Completed 11/06/2012, 11/07/2011 HIV for age 15-65 Addressed 2022 (Ve rified in Care Everywhere or Patient Record) Overridden with the intention of not completing the topic Hepatitis C screening for age 18-79 Addressed 2022 (Verified in Care Everywhere or Patient Record) Overridden with the intention of not completing the topic Procedures Procedure Name Priority Date/Time Associated Diagnosis Comments PSA (TOTAL) ([facility]) Routine 08/18/2024 1 2:53 PM CDT Routine health maintenance VITAMIN D 25 (DEFICIENCY) Routine 08/18/2024 12:53 PM CDT Vitamin D deficiency BASIC METABOLIC PANEL Routine 08/18/2024 12:53 PM CDT HTN (hypertension) LIPID PANEL Routine 08/18/2024 12:53 PM CDT Hyperlipemia SCAN-ULTRASOUND REPORT 08/08/2024 12:00 AM CDT HEMOGLOBIN Routine 07/15/2024 11:46 AM CDT Pre-op examination POTASSIUM Routine 07/15/2024 11:46 AM CDT Pre-op examination HEMOGLOBIN A1C MONITORING (POCT) Routine 07/15/2024 11:46 AM CDT Type 2 diabetes mellitus without complication, with long-term current use of insulin (HC) SCAN-COLONOSCOPY 07/03/2022 12:0 0 AM CDT from Last 3 Months or Most Recently Relevant to Health Maintenance Results * PSA (TOTAL) (QUEST) (08/18/2024 12:53 PM CDT) Pathologist [facility] PSA, TOTAL 0.81 < OR = 4.00 ng/mL [employer] [employer] Comment: The total PSA value from this assay system is standardized against the WHO standard. The test result will be approximately 20% lower when compared to the equimolar-standardized total PSA (Babak [place]). Comparison of serial PSA results should be interpreted with this fact in mind. This test was performed using the Siemens chemiluminescent method. Values obtained from different assay methods cannot be used interchangeably. PSA levels, regardless of value, should not be interpreted as absolute evidence of the presence or absence of disease. Blood BLOOD SPECIMEN / Unknown 08/18/2024 12:53 PM CDT 08/18/2024 12:54 PM CDT Narrative [facility] - 08/19/2024 10:49 AM CDT FASTING:YES FASTING: YES Abhishek Thomas MD SEND OUTS [employer] [employer] [address] [place] [address], [facility] [address] [place] [address] * (ABNORMAL) VITAMIN D 25 (DEFICIENCY) (08/18/2024 12:53 PM CDT) VITAMIN D,25-OH,TOTAL,IA 18(L) 30 - 100 ng/mL [facility] Comment: Vitamin D Status ? 25-OH Vitamin D: Deficiency: ?<20 ng/mL Insufficiency: ? 20 - 29 ng/mL Optimal: ? > or = 30 ng/mL For 25-OH Vitamin D testing on patients on D2-supplementation and patients for whom quantitation of D2 and D3 fractions is required, the QuestAssureD(TM) 25-OH VIT D, (D2,D3), LC/MS/MS is recommended: order code 47040 (patients >2yrs). See Note 1 Note 1 For additional information, please refer to http://education.PayScale/faq/HNP663 (This link is being provided for informational/ educational purposes only.) Blood BLOOD SPECIMEN / Unknown 08/18/2024 12:53 PM CDT 08/18/2024 12:54 PM CDT Narrative [facility] - 08/19/2024 10:43 AM CDT FASTING:YES FASTING: YES Abhishek Thomas MD [employer] [address] [place] [address], [facility] [address] [place] [address] * (ABNORMAL) LIPID PANEL (08/18/2024 12:53 PM CDT) Pathologist [facility] CHOLESTEROL, TOTAL 154 <200 mg/dL [facility] HDL CHOLESTEROL 39(L) > OR = 40 mg/dL [facility] TRIGLYCERIDES 177(H) <150 mg/dL [facility] LDL-CHOLESTEROL 88 mg/dL (calc) [employer] [facility] Comment: Reference range: <100 Desirable range <100 mg/dL for primary prevention; ?? <70 mg/dL for patients with CHD or diabetic patients with > or = 2 CHD risk factors. LDL-C is now calculated using the Dorothy calculation, which is a validated novel method providing better accuracy than the Friedewald equation in the estimation of LDL-C. Richie SS et al. KUSUM. 2013;310(19): 6619-9171 (http://education.PayScale/faq/FNP609) CHOL/HDLC RATIO 3.9 <5.0 (calc) [employer] [facility] NON HDL CHOLESTEROL 115 <130 mg/dL (calc) [employer] [facility] Comment: For patients with diabetes plus 1 major ASCVD risk factor, treating to a non-HDL-C goal of <100 mg/dL (LDL-C of <70 mg/dL) is considered a therapeutic option. Blood BLOOD SPECIMEN / Unknown 08/18/2024 12:53 PM CDT 08/18/2024 12:54 PM CDT Narrative [facility] - 08/19/2024 5:49 AM CDT FASTING:YES FASTING: YES Abhishek Thomas MD CHEMISTRY [facility] [address] [place] [address], [facility] [address] [place] [address] * (ABNORMAL) BASIC METABOLIC PANEL (08/18/2024 12:53 PM CDT) [facility] GLUCOSE 144(H) 65 - 99 mg/dL [employer] [facility] Comment: ? Fasting reference interval For someone without known diabetes, a glucose value >125 mg/dL indicates that they may have diabetes and this should be confirmed with a follow-up test. UREA NITROGEN (BUN) 26(H) 7 - 25 mg/dL [facility] CREATININE 0.83 0.70 - 1.30 mg/dL [facility] EGFR 101 > OR = 60 mL/min/1.7 3m2 [facility] BUN/CREATININE RATIO 31(H) 6 - 22 (calc) [facility] SODIUM 139 135 - 146 mmol/L [facility] POTASSIUM 4.2 3.5 - 5.3 mmol/L [facility] CHLORIDE 103 98 - 110 mmol/L [facility] CARBON DIOXIDE 28 20 - 32 mmol/L [facility] ELECTROLYTE BALANCE 8 7 - 17 mmol/L (calc) [facility] CALCIUM 9.3 8.6 - 10.3 mg/dL [facility] Blood BLOOD SPECIMEN / Unknown 08/18/2024 12:53 PM CDT 08/18/2024 12:54 PM CDT Narrative [facility] - 08/19/2024 5:49 AM CDT FASTING:YES FASTING: YES Abhishek Thomas MD CHEMISTRY [facility] [address] [place] [address], [facility] [address] [place] [id number] * SCAN-ULTRASOUND REPORT (08/08/2024 12:00 AM CDT) Anatomical Region Laterality Modality Other Scanner OTHER * HEMOGLOBIN (07/15/2024 11:46 AM CDT) HEMOGLOBIN 14.9 13.5 - 17.5 g/dL 07/15/2024 11:50 AM CDT [facility] MCV 84 80 - 100 fL 07/15/2024 11:50 AM CDT [facility] Blood BLOOD SPECIMEN / Unknown Venipuncture / Unknown 07/15/2024 11:46 AM CDT 07/15/2024 11:46 AM CDT Jasen GOODSON HEMATOLOGY [facility] [address] [place] [address] * POTASSIUM (07/15/2024 11:46 AM CDT) POTASSIUM 4.9 3.5 - 5.1 mmol/L 07/16/2024 1:21 AM CDT [facility] Blood BLOOD SPECIMEN / Unknown Venipuncture / Unknown 07/15/2024 11:46 AM CDT 07/15/2024 11:46 AM CDT Jasen GOODSON CHEMISTRY [facility] [address] * (ABNORMAL) HEMOGLOBIN A1C MONITORING (POCT) (07/15/2024 11:46 AM CDT) HEMOGLOBIN A1C MONITORING (POCT) 8.0(H) <=6.4 % 07/15/2024 12:07 PM CDT [facility] Blood BLOOD SPECIMEN / Unknown Venipuncture / Unknown 07/15/2024 11:46 AM CDT 07/15/2024 11:46 AM CDT Narrative [facility] - 07/15/2024 12:07 PM CDT ? (<=6.9%) ? Indicates good control ? (7.0% to 7.9%) ? Indicates fair control ? (>=8.0%) ? Indicates poor control ?? NOTE: ??These thresholds are guidelines and ?individual targets may vary. Falsely low levels may be seen with: Recent Transfusion, Recent Significant Blood Loss, Hemolytic Diseases, or Falsely elevated levels may be seen with: Untreated Anemias, Splenectomy ? Jasen GOODSON CHEMISTRY [facility] [address] [place] [address] * SCAN-COLONOSCOPY (07/03/2022 12:00 AM CDT) Scanner OTHER from Last 3 Months or Most Recently Relevant to Health Maintenance Care Teams Fire Prevention Officer Relationship Specialty Start [place] [address] [place] [address] PCP - General Family Practice 07/10/24
--- OUTSIDE RECORDS SUMMARY | 2024-09-11 23:09 | XMS_ITS | Encounter Summary ---
Author Organization [facility] Address [address] [place] [address] Care Team Providers Care Mixing Plant Operator Name Role Phone Bryan Uribe M.D. Primary Care Provider [phone] Encounter Details Date Type Department Care Team (Latest Contact Info) Description 07/08/2024 11:07 AM CDT - 07/08/2024 11:59 PM CDT Hospital Encounter Department of Laboratory Medicine in [place], [place] [address] [place] [address] Bryan Uribe M.D. [address] [place] [address] Hypertensive Chronic Kidney Disease With Stage 1 Through Stage 4 Chronic Kidney Disease, Or Unspecified Chronic Kidney Disease; Chronic Pain Syndrome Discharge Disposition: Home or Self Care Social History Tobacco Use Types Packs/Day Years [...] How often do you attend chur or anglican services? Never 07/12/2022 Do you belong to any clubs o r organizations such as taoism groups, unions, fraternal or athletic groups, or [...] Answer Date Recorded PHQ-2 Score 2 03/25/2024 [facility] - Occupational Stress [...] your living situation today? I have a [facility] place to live 10/09/2023 Education Answer Date Recorded What is the highest level of school you have completed or the highest degree you have received? GED or equivalent 05/2022 Sex and Gender Information Value Date Recorded Sex Assigned at Male 07/12/2022 1:04 PM CDT Legal Sex Male 4:24 PM CONTAINER FINISHING INSPECTOR Gender Identity Male 07/12/2022 1:04 PM CDT Sexual Orientation Straight 07/12/2022 1: 04 PM CDT documented as of this encounter Medications at Time of Discharge amLODIPine (NORVASC) 10 mg tabletIndication s:Hypertension And Chronic Kidney Disease Stage 1 Take 1 tablet (10 mg total) by mouth daily. 90 tablet 3 11/20/2023 ammonium lactate (LAC-HYDRIN) 12 % lotion APPLY DAILY TO FEET 12/13/2021 aspirin 81 mg capsule Take 81 mg by mouth every evening. 08/25/2014 atorvastatin (LIPITOR) 40 mg tabletIndication s:Hyperlipidemia Take 1 tablet (40 mg total) by mouth daily. 90 tablet 3 01/11/2024 BD Willa 2nd Gen Pen Needle 32 gauge x 5/32 needle 11/04/2021 DOCOSAHEXANOIC ACID/EPA (FISH OIL ORAL) Take 2 capsules by mouth daily. 05/23/2016 DULoxetine (CYMBALTA) [address] Guardado ns:Diabetes Mellitus Type 2 Peripheral Neuropathy (HCC) Take 1 capsule (30 mg total) by mouth 2 (two) times a day. 180 capsule 3 11/20/2023 insulin degludec (Tresiba FlexTouch U-100) 100 unit/mL (3 mL) injection Inject 50 Units under the skin at bedtime. 15 mL 3 10/23/2023 losartan (COZAAR) 100 mg tabletIndication s:Hypertension And Chronic Kidney Disease Stage 1 Take 1 tablet (100 mg total) by mouth daily. 90 tablet 3 11/20/2023 potassium chloride (KLORCON/K-TAB) 10 mEq ER tablet TAKE 1 TABLET BY MOUTH 3 TIMES DAILY WITH MEALS 270 tablet 3 02/28/2023 semaglutide (Ozempic) 2 mg/dose (8 mg/3 mL) injection Inject 2 mg under the skin every 7 (seven) days. 3 mL 11 02/02/2023 oxyCODONE (Roxicodone) 5 mg immediate release tabletIndication s:Chronic Pain/Nonacute Pain Take 1 tablet (5 mg total) by mouth 2 (two) times a day as needed for pain Indication: Chronic Pain/Nonacute Pain. 60 tablet 07/15/2024 08/12/2024 documented as of this encounter Plan of Treatment Upcoming Encounters Date Type Department Care Team (Late st Contact Info) Description 10/08/2024 1:00 PM CONTAINER FINISHING INSPECTOR Comprehensive Visit Department of Family Medicine in [place], [place] [address] [place] [address] Bryan Uribe M.D. [address] [place] [phone] documented as of this encounter Procedures Procedure Name Priority Date/Time Associated Diagnosis Comments CONTROLLED SUBSTANCE MONITORING, U Routine 07/08/2024 11:26 AM CDT Chronic Pain Syndrome documented in this encounter Results * (ABNORMAL) Controlled Substance Monitoring Panel, Urine (07/08/2024 11:26 AM CDT) List patient's current medications Not provided 10:02 PM CDT SDS Comment: ----ADDITIONAL INFORMATION---- Accuracy and completeness of declared medications on reports solely dependent on information submitted by client. Creatinine, Random, U 221.3 mg/dL 4 8:47 AM CDT SDS Specific [place] 1.030 07/09/20 2 4 8:47 AM CDT SDSC pH 5.3 4 8:47 AM CDT SDSC Oxidants Negative Cutoff: 200 mg/L 4 8:47 AM CDT SDSC Comment Normal 4 8:47 AM CDT SDS Barbiturates Negative Cutoff: 200 ng/mL 4 8:47 AM CDT SDSC Cocaine Negative Cutoff: 150 ng/mL 4 8:47 AM CDT [facility] Comment: This cocaine immunoassay targets benzoylecgonine the [...] 4 10:51 AM CDT SDSC Comment:Tylenol 3 Ezyxgfu-6-nkyp-glucuro nide Not Detected Cutoff: 100 ng/mL 4 10:51 AM CDT SDSC Comment:Metabolite of codein e Morphine Not Detected Cutoff: 25 ng/mL 4 10:51 AM CDT SDSC Comment: Julia Ruiz, MS Contin; Also a minor metabolite (10%) of codeine and can be seen in low concentrations (<2,000 ng/mL) with poppy seed ingestion. Pilptdbk-5-vokh-glucur onide Not Detected Cutoff: 100 ng/mL 4 10:51 AM CDT SDSC Comment:Metabolite of morphi ne 6-monoacetylmorphine Not Detected Cutoff: 25 ng/mL 4 10:51 AM CDT SDSC Comment:Metabolite of heroin Hydrocodone Not Detected Cutoff: 25 ng/mL 4 10:51 AM CDT SDSC Comment: Lortab, [place], Vicodin; Also a very minor metabolite of [...] and a minor (<5%) metabolite of morphine. Htffqmonqlnha-3-aigh-g lucuronide Not Detected Cutoff: 100 ng/mL 4 10:51 AM CDT SDSC Comment:Metabolite of hydrom orphone Oxycodone Present(A) Cutoff: 25 ng/mL 4 10:51 AM CDT SDSC Comment:Endocet, Percocet, O xycontin Noroxycodone Present(A) Cutoff: 25 ng/mL 4 10:51 AM CDT [facility]SC Comment:Metabolite of oxycod one Oxymorphone Not Detected Cutoff: 25 ng/mL 4 10:51 AM CDT SDSC Comment:Numorphan, Opana; Al so a metabolite of oxycodone. Mkgmvvtbgly-7-xyxt-glu curonide Present(A) Cutoff: 100 ng/mL 4 10:51 [...] ng/mL 4 10:51 AM CDT SDSC Comment:Narcan Mlagsaqo-5-enxh-glucur onide Not Detected Cutoff: 100 ng/mL 4 10:51 AM CDT SDSC Comment:Metabolite of naloxo ne Methadone, U Not Detected Cutoff: 25 ng/mL 4 10:51 AM CDT SDS Comment:Dolophine EDDP Not Detected Cutoff: 25 ng/mL 4 10:51 AM CDT SDSC Comment:Metabolite of methad one Propoxyphene Not Detected Cutoff: 25 ng/mL 4 10:51 AM CDT [facility]SC Comment:Darvon, Darvocet Norpropoxyphene Not Detected Cutoff: 25 ng/mL 4 10:51 AM CDT SDS Comment:Metabolite of propox yphene Tramadol Not Detected Cutoff: 25 ng/mL 4 10:51 AM CDT SDSC Comment:Tradol, Ultram, Ultr acet O-desmethyltramadol Not Detected Cutoff: 25 ng/mL 4 10:51 AM CDT SDSC Comment:Metabolite of tramad ol Tapentadol Not Detected Cutoff: 25 ng/mL 4 10:51 AM CDT [facility]SC Comment:Nucynta N-desmethyltapentadol Not Detected Cutoff: 50 ng/mL 4 10:51 AM CDT [facility]SC Comment:Metabolite of tapent adol Xcbxmnlecl-qjaw-hcwola onide Not Detected Cutoff: 100 ng/mL 4 [...] oxycodone and several metabolites (noroxycodone, noroxymorphone, and tzepjfsirid-8-krt a-glucuronide). Suspect use of oxycodone and/or oxymorphone within the past three days. 4 10:51 AM CDT [facility] Comment: ----ADDITIONAL INFORMATION---- This test was developed and its performance characteristics determined by [facility] in a manner consistent with CLIA requirements. This test has not been cleared or approved by the U.S. Food and Drug Administration. Alprazolam Not Detected Cutoff: 10 ng/mL 4 8:44 AM CDT [facility] Comment:Xanax Alpha-Hydroxyalprazola m Not Detected Cutoff: 10 ng/mL 4 8:44 AM CDT [facility] Comment:Metabolite of Alpraz olam Alpha-Hydroxyalprazola m Glucuronide Not Detected Cutoff: 50 ng/mL 4 8:44 AM CDT [facility] Comment:Metabolite of Alpraz olam Chlordiazepoxide Not Detected [...] 4 8:44 AM CDT [facility] Comment:Metabolite of Clonaz epam Diazepam Not Detected Cutoff: 10 ng/mL 4 8:44 AM CDT [facility] Comment:Valium Nordiazepam Not Detected Cutoff: 10 ng/mL 4 8:44 AM CDT [facility] Comment:Metabolite of Chlord iazepoxide, Diazepam, or Prazepam. Flunitrazepam Not Detected Cutoff: 10 ng/mL 4 8:44 AM CDT [facility] Comment:Rohypnol 7-aminoflunitrazepam Not Detected Cutoff: 10 ng/mL 4 8:44 AM CDT [facility] Comment:Metabolite of Flunit razepam Flurazepam Not Detected Cutoff: 10 ng/mL 4 8:44 AM CDT [facility] Comment:Dalmane 2-Hydroxy Ethyl Flurazepam Not Detected Cutoff: 10 ng/mL 4 8:44 AM CDT [facility] Comment:Metabolite of Fluraz epam Lorazepam Not Detected Cutoff: 10 ng/mL 4 8:44 AM CDT [facility] Comment:Ativan Lorazepam Glucuronide Not Detected Cutoff: 50 ng/mL 4 8:44 AM CDT [facility] Comment:Metabolite of Loraze naeem Midazolam Not Detected Cutoff: 10 ng/mL 4 8:44 AM CDT [facility] Comment:Versed Alpha-Hydroxy Midazolam Not Detected Cutoff: 10 ng/mL 4 8:44 AM CDT [facility] Comment:Metabolite of Midazo harris Oxazepam Not Detected Cutoff: 10 ng/mL 4 8:44 AM CDT [facility] Comment:Serax; Also a metabo lite of Chlordiazepoxide, Diazepam, or Temazepam. Oxazepam Glucuronide Not Detected Cutoff: 50 ng/mL 4 8:44 AM CDT [facility] Comment:Metabolite of Oxazep am Prazepam Not Detected Cutoff: 10 ng/mL 4 8:44 AM CDT [facility] Comment:Centrax Temazepam Not Detected Cutoff: 10 ng/mL [...] 4 8:44 AM CDT [facility] Comment:Ambien Zolpidem Nntxay-4-Jwsmgothxi acid Not Detected Cutoff: 10 ng/mL 4 8:44 AM CDT [facility] Comment:Metabolite of Zolpid em Benzodiazepine Interpretation No benzodiazepines were detected. The absence of expected drug(s) and/or drug metabolite(s) may indicate non-compliance, altered pharmacokinetics, inappropriate timing of specimen collection relative to drug administration, diluted/adulterat ed urine, or limitations of testing. 4 8:44 AM CDT [facility] Comment: ----ADDITIONAL INFORMATION---- This test was developed and its performance characteristics determined by [facility] in a manner consistent with CLIA requirements. This test has not been cleared or approved by the U.S. Food and Drug Administration. Methamphetamine Not Detected Cutoff: 100 ng/mL 4 11:12 AM CDT [facility] Comment:Desoxyn Amphetamine Not Detected Cutoff: 100 ng/mL 4 11:12 AM CDT [facility] Comment: Dyanavel XR, Adzenys ER, Adderall, Vyvanse; Also a metabolite of methamphetamine 3,4-methylenedioxymeth amphetamine (MDMA) Not Detected Cutoff: 100 ng/mL 4 11:12 AM CDT [facility] 3,7-rjzuzwnvjqukjq-M-e thylamphetamine (MDEA) Not Detected Cutoff: 100 ng/mL 4 11:12 AM CDT [facility] 3,4-methylenedioxyamph etamine (MDA) Not Detected Cutoff: 100 ng/mL 4 11:12 AM CDT [facility] Comment:Also a metabolite of MDMA and/or MDEA Ephedrine Not Detected Cutoff: 100 ng/mL 4 11:12 AM CDT [facility] Pseudoephedrine Not Detected Cutoff: 100 ng/mL 4 11:12 AM CDT [facility] Comment:Sudafed Phentermine Not Detected Cutoff: 100 ng/mL 4 11:12 AM CDT [facility] Comment:Adipex-P, Lomaira, Q symia Phencyclidine (PCP) Not Detected Cutoff: 20 ng/mL 4 11:12 AM CDT [facility] Methylphenidate Not Detected Cutoff: 20 ng/mL 4 11:12 AM CDT [facility] Comment:Ritalin, Concerta Ritalinic acid Not Detected Cutoff: 100 ng/mL 4 11:12 AM CDT [facility] Comment:Metabolite of methyl phenidate Stimulant Interpretation No stimulants were detected. The absence of expected drug(s) and/or drug metabolite(s) may indicate non-compliance, altered pharmacokinetics, inappropriate timing of specimen collection relative to drug administration, diluted/adulterat ed urine, or limitations of testing. 4 11:12 AM T [facility] Comment: ----ADDITIONAL INFORMATION---- This test was developed and its performance characteristics determined by [facility] in a manner consistent with CLIA requirements. This test has not been cleared or approved by the U.S. Food and Drug Administration. Urine (Urine, Voided) 07/08/2024 11:26 AM CDT 07/08/2024 10:02 PM CDT us Bryan Uribe M.D. LAB URINE ORDERABLES Final Resu lt [facility] [address] [place] [address] [facility] [address] [phone] [facility] [address] [phone] documented in this encounter Visit Diagnoses Diagnosis Hypertensive Chronic Kidney Disease With Stage 1 Through Stage 4 Chronic Kidney Disease, Or Unspecified Chronic Kidney Disease Chronic Pain Syndrome documented in this encounter Additional Health Concerns Assessment Noted Time PHQ-9 Depression Total Score: 6 03/25/20 24 12:37 PM CDT documented as of this encounter Care Teams Mixing Plant Operator Relationship Specialty Start Date End Date Bryan Uribe M.D. [address] [place] [address] PCP - General Family Medicine 04/10/24 documented as of this encounter
--- OUTSIDE RECORDS SUMMARY | 2024-09-11 23:09 | XMS_ITS | Encounter Summary ---
Author Organization [facility] Address [address] [place] [address] Care Team Providers Care Acute Care Nursing Assistant Name Role Phone Bryan Uribe M.D. Primary Care Provider Reason for Visit * Reason Onset Date Comments Welcome To Medicare 07/16/2024 Encounter Details Date Type Department Care Team (Latest Contact Info) Description 07/16/2024 Clinical Communication Department of Family Medicine in [place], [place] [address] [place] [address] Bryan Uribe M.D. [address] [place] [address] Welcome To Medicare Social History Tobacco Use Types Packs/Day Years [...] often do you attend chur ch or buddhist services? Never 07/12/2022 Do you belong to any clubs o r organizations such as protestant groups, unions, fraternal or athletic groups, or [...] Answer Date Recorded PHQ-2 Score 2 03/25/2024 [facility] Questionnaire Answer Date Recorded [...] your living situation today? I have a [facility] place to live 10/09/2023 Education Answer Date Recorded What is the highest level of school you have completed or the highest degree you have received? GED or equivalent 05/2022 Sex and Gender Information Value Date Recorded Sex Assigned at Male 07/12/2022 1:04 PM CDT Legal Sex Male 4:24 PM GALVANIZER Gender Identity Male 07/12/2022 1:04 PM CDT Sexual Orientation Straight 07/12/2022 1: 04 PM CDT documented as of this encounter Plan of Treatment Upcoming Encounters Date Type Department Care Team (Late st Contact Info) Description 10/08/2024 1:00 PM GALVANIZER Comprehensive Visit Department of Family Medicine in [place], [place] [address] [place] [address] Bryan Uribe M.D. [address] [place] [phone] documented as of this encounter Visit Diagnoses Not on filedocumented in this encounter Additional Health Concerns Assessment Noted Time PHQ-9 Depression Total Score: 6 03/25/20 24 12:37 PM CDT documented as of this encounter Care Teams Acute Care Nursing Assistant Relationship Specialty Start Date End Date Bryan Uribe [place] [facility] [place] [phone] PCP - General Family Medicine 04/10/24 documented as of this encounter
--- OUTSIDE RECORDS SUMMARY | 2024-09-11 23:09 | XMS_ITS | Referral Summary ---
Author Organization [facility] Address [address] [place] [address] Care Team Providers Care Stone Polisher Hand Name Role Phone Bryan Uribe MD Primary Care Provider [phone] Allergies No known active allergies Medications amLODIPine (NORVASC) 10 MG tablet TAKE 1 TABLET BY MOUTH DAILY. 1 6 Active atorvastatin (LIPITOR) 40 MG tablet 6 Active GLIPIZIDE XL 10 MG 24 hr tablet TAKE 1 TABLET BY MOUTH DAILY. 0 6 Active losartan (COZAAR) 50 MG tablet 6 Active potassium citrate (UROCIT-K) 10 MEQ (1080 MG) CR tabletIndications:Ur ic acid nephrolithiasis TAKE 1 TABLET BY MOUTH 3 TIMES DAILY (WITH MEALS) 270 tablet 1 8 Active Social History Tobacco Use Types Packs/Day Years Used Date Smoking Tobacco: Never Smokeless Tobacco: Never Tobacco Cessation:Counseling Given: No Alcohol Use Standard Drinks/Week Comments Yes 0 (1 standard drink = 0.6 oz pur e alcohol) Sex and Gender Information Value Date Recorded Sex Assigned at Not on file Legal Sex Male 3:29 AM PREPARATION SUPERVISOR Gender Identity Not on file Sexual Orientation Not on file Last Filed Vital Signs Vital Sign Reading Time Taken Comments Blood Pressure 114/70 09/01/2016 1:43 PM CDT Pulse 84 09/26/2017 3:23 PM PREPARATION SUPERVISOR Temperature - - Respiratory Rate - - Oxygen Saturation 98% 09/26/2017 3:23 PM PREPARATION SUPERVISOR Inhaled Oxygen Concentration - - Weight 117.9 kg (260 lb) 09/26/2017 3:23 PM PREPARATION SUPERVISOR Height 185.4 cm (6' 1) 09/26/2017 3:23 PM PREPARATION SUPERVISOR Body Mass Index 34.3 09/26/2017 3:23 PM PREPARATION SUPERVISOR Plan of Treatment Not on file Insurance [facility] Giving Assistant Care Teams Stone Polisher Hand Relationship Specialty Start Date End Date Bryan Uribe MD PCP - General Family Practice 08/24/16
--- OUTSIDE RECORDS SUMMARY | 2024-09-11 23:09 | XMS_ITS | Encounter Summary ---
Author Organization [facility] Address [address] [place] [address] Care Team Providers Care Architectural Intern Name Role Phone Bryan Uribe M.D. Primary Care Provider [phone] Reason for Visit * Reason Onset Date Comments Med Refill 09/09/2024 Encounter Details Date Type Department Care Team (Late st Contact Info) Description 09/09/2024 Refill Department of Family Medicine in [place], [place] [address] [place] [address] Bryan Uribe M.D. [address] [place] [address] Med Refill Social History Tobacco Use Types [...] often do you attend chur ch or temple services? Never 07/12/2022 Do you belong to [...] Answer Date Recorded PHQ-2 Score 2 03/25/2024 [facility] Questionnaire Answer Date [...] your living situation today? I have a [facility] place to live 10/09/2023 Education Answer Date Recorded What is the highest level of school you have completed or the highest degree you have received? GED or equivalent 05/2022 Sex and Gender Information Value Date Recorded Sex Assigned at Male 07/12/2022 1:04 PM CDT Legal Sex Male 4:24 PM COIN ROLLING MACHINE OPERATOR Gender Identity Male 07/12/2022 1:04 PM CDT Sexual Orientation Straight 07/12/2022 1: 04 PM CDT documented as of this encounter Miscellaneous Notes * Telephone Encounter - Lexi Grimes, R.M.AGracie - 09/09/2024 4:47 PM COIN ROLLING MACHINE OPERATOR Patient informed Rx was sent to the pharmacy. ROLLING MACHINE OPERATOR * Telephone Encounter - Lexi Grimes R.MGracieA. - 09/09/2024 10:25 AM COIN ROLLING MACHINE OPERATOR R: Please review pended controlled substance medication and update/approve/deny as applicable. S: Request from: patient B: Chronic Pain Syndrome Last dispensed [facility] 08[facility]24 for a quantity of 60 and for a 30 day supply. Due: now Last saw PCP on: 07/08/24 Next appt with PCP: 10/08/24 A: Refill Oxycodone Controlled Substance Contract signed: YES Recent Urine Screen: YES Pharmacy for Controlled Substances: [facility] Refill history reviewed, no concerns present. ROLLING MACHINE OPERATOR documented in this encounter Plan of Treatment Upcoming Encounters Date Type Department Care Team (Late st Contact Info) Description 10/08/2024 1:00 PM COIN ROLLING MACHINE OPERATOR Comprehensive Visit Department of Family Medicine in [place], [place] [address] [place] [address] Bryan Uribe M.D. [address] [place] [address] documented as of this encounter Visit Diagnoses Diagnosis Chronic Pain Syndrome documented in this encounter Additional Health Concerns Assessment Noted Time PHQ-9 Depression Total Score: 6 03/25/20 24 12:37 PM CDT documented as of this encounter Care Teams Architectural Intern Relationship Specialty Start Date End Date Bryan Uribe M.D. [address] [place] [address] PCP - General Family Medicine 04/10/24 documented as of this encounter
--- OUTSIDE RECORDS SUMMARY | 2024-09-11 23:09 | XMS_ITS | Clinical Summary ---
Author Organization [facility] Address [address] [place] [address] Care Team Providers Care Centrifugal Drier Operator Name Role Phone Bryan Uribe MD Primary Care Provider [phone] Allergies No known active allergies Medications amLODIPine [...] on file Legal Sex Male 3:29 AM SNAKER TRACTOR DRIVER Gender Identity Not on file Sexual Orientation Not on file Last Filed Vital Signs Vital Sign Reading Time Taken Comments Blood Pressure 114/70 09/01/2016 1:43 PM CDT Pulse 84 09/26/2017 3:23 PM SNAKER TRACTOR DRIVER Temperature - - Respiratory Rate - - Oxygen Saturation 98% 09/26/2017 3:23 PM SNAKER TRACTOR DRIVER Inhaled Oxygen Concentration - - Weight 117.9 kg (260 lb) 09/26/2017 3:23 PM SNAKER TRACTOR DRIVER Height 185.4 cm (6' 1) 09/26/2017 3:23 PM SNAKER TRACTOR DRIVER Body Mass Index 34.3 09/26/2017 3:23 PM SNAKER TRACTOR DRIVER Plan of Treatment Not on file Insurance [facility] [email or web address] Care Teams Centrifugal Drier Operator Relationship Specialty Start Date End Date Bryan Uribe MD PCP - General Family Practice 08/24/16
--- OUTSIDE RECORDS SUMMARY | 2024-09-11 23:09 | XMS_ITS ---
Author Organization [facility] Address [address] [place] [address] Care Team Providers Care Leather Repairer Name Role Phone Unavailable Unavailable Unavailable Surgery Details Not on file Complications Check Surgery Details section. Procedure Estimated Blood Loss Check Surgery Details section. Procedure Findings Check Surgery Details section. Procedure Specimens Taken Check Surgery Details section.
--- OUTSIDE RECORDS SUMMARY | 2024-09-11 23:09 | XMS_ITS | Encounter Summary ---
Author Organization [facility] Address [address] [place] [address] Care Team Providers Care Real Estate Leasing Agent Name Role Phone Bryan Uribe M.D. Primary Care Provider [phone] Reason for Visit * Reason Comments Med Refill Encounter Details Date Type Department Care Team (Late st Contact Info) Description 06/16/2024 Refill Department of Family Medicine in [place], [place] [address] [place] [phone] Bryan Uribe M.D. [address] [place] [address] Med Refill Social History Tobacco Use Types [...] often do you attend chur ch or religion services? Never 07/12/2022 Do you belong to any clubs o r organizations such as moravian groups, unions, fraternal or athletic groups, or [...] Answer Date Recorded PHQ-2 Score 2 03/25/2024 [facility] Questionnaire Answer Date Recorded [...] your living situation today? I have a [facility] place to live 10/09/2023 Education Answer Date Recorded What is the highest level of school you have completed or the highest degree you have received? GED or equivalent 05/2022 Sex and Gender Information Value Date Recorded Sex Assigned at Male 07/12/2022 1:04 PM CDT Legal Sex Male 4:24 PM [employer]PER[employer] Gender Identity Male 07/12/2022 1:04 PM CDT Sexual Orientation Straight 07/12/2022 1: 04 PM CDT documented as of this encounter Miscellaneous Notes * Telephone Encounter - Becki Decker, R.N. - 06/16/2024 3:35 PM CDT R: Please review pended controlled substance medication and update/approve/deny as applicable. S: Request from: patient B: Oxycodone Last dispensed from [facility] in [facility] pharmacy on 05/19/24 for a quantity of 60 and for a 30 day supply. Due: now Last saw PCP on: 03/25/24 Next appt with PCP: 07/08/24 A: Controlled Substance Contract signed: YES Recent Urine Screen: YES Pharmacy for Controlled Substances: [facility] in [facility] Refill history reviewed, no suspicious activities observed. documented in this encounter Plan of Treatment Upcoming Encounters Date Type Department Care Team (Late st Contact Info) Description 10/08/2024 1:00 PM SUPER[employer] Comprehensive Visit Department of Family Medicine in [place], [place] [address] [place] [address] Bryan Uribe M.D. [address] [place] [address] documented as of this encounter Visit Diagnoses Diagnosis Chronic Pain Syndrome documented in this encounter Additional Health Concerns Assessment Noted Time PHQ-9 Depression Total Score: 6 03/25/20 24 12:37 PM CDT documented as of this encounter Care Teams Real Estate Leasing Agent Relationship Specialty Start Date End Date Bryan Uribe M.D. [address] [place] [address] PCP - General Family Medicine 04/10/24 documented as of this encounter
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
[2024-09-11 23:25] VITALS: O2SAT 96
== END 2024-09-11 23:59 | disposition home or self-care (01) ==
LOC: ED 23:07
PROVIDERS: Emergency Provider Emergency Medicine Emergency Medical Services; PCP Family Medicine
DX: M25.561 Pain in right knee (principal)
CPT/HCPCS: 73700; 94761; 99283; 99284; J2270

== ENCOUNTER 2024-10-06 12:40 | Outpatient (CLI) | payer OTHER, SELFPAY ==
--- OUTSIDE RECORDS SUMMARY | 2024-10-06 12:44 | XMS_ITS | Encounter Summary ---
Author Organization [facility] Address [address] [place] [address] Care Team Providers Care Dean Of Boys Name Role Phone Bryan Uribe M.D. Primary Care Provider [phone] Reason for Visit * Reason Onset Date Comments Med Refill 08/12/2024 Encounter Details Date Type Department Care Team (Late st Contact Info) Description 08/12/2024 Refill Department of Family Medicine in [place], [place] [address] [place] [address] Bryan Uribe M.D. [address] [place] [address] Med Refill Social History Tobacco Use Types [...] often do you attend chur ch or gnosticism services? Never 07/12/2022 Do you belong to any clubs o r organizations such as buddhist groups, unions, fraternal or athletic groups, or [...] Answer Date Recorded PHQ-2 Score 2 03/25/2024 [facility] Questionnaire Answer Date [...] your living situation today? I have a [facility] place to live 10/09/2023 Education Answer Date Recorded What is the highest level of school you have completed or the highest degree you have received? GED or equivalent 05/2022 Sex and Gender Information Value Date Recorded Sex Assigned at Male 07/12/2022 1:04 PM CDT Legal Sex Male 4:24 PM VISION CARE ASSOCIATE Gender Identity Male 07/12/2022 1:04 PM CDT [...] 10/08/24 Pharmacy Verified: Yes [facility] [place] documented in this encounter Plan of Treatment Upcoming Encounters Date Type Department Care Team (Late st Contact Info) Description 10/08/2024 1:00 PM VISION CARE ASSOCIATE Comprehensive Visit Department of Family Medicine in [place], [place] [address] [place] [address] Bryan Uribe M.D. [address] [place] [address] documented as of this encounter Visit Diagnoses Diagnosis Chronic Pain Syndrome General Medical Examination Adult- Primary Personal History Of Other Venous Thrombosis And Embolism documented in this encounter Additional Health Concerns Assessment Noted Time PHQ-9 Depression Total Score: 6 03/25/20 24 12:37 PM CDT documented as of this encounter Care Teams Dean Of Boys Relationship Specialty Start Date End Date Bryan Uribe M.D. [address] [place] [address] PCP - General Family Medicine 04/10/24 documented as of this encounter
--- OUTSIDE RECORDS SUMMARY | 2024-10-06 12:44 | XMS_ITS | Encounter Summary ---
Author Organization [facility] Address [address] [place] [address] Care Team Providers Care Transfer Car Operator Drier Name Role Phone Bryan Uribe M.D. Primary Care Provider [phone] Reason for Visit * Reason Onset Date Comments Welcome To Medicare 07/16/2024 Encounter Details Date Type Department Care Team (Latest Contact Info) Description 07/16/2024 Clinical Communication Department of Family Medicine in [place], [place] [address] [place] [address] Bryan Uribe M.D. [address] [place] [address] Welcome To Medicare Social History Tobacco Use [...] often do you attend chur ch or restorationist services? Never 07/12/2022 Do you belong to any clubs o r organizations such as sabianist groups, unions, fraternal or athletic groups, or [...] Answer Date Recorded PHQ-2 Score 2 03/25/2024 [facility] Questionnaire Answer Date [...] your living situation today? [facility] 10/09/2023 Education Answer Date Recorded What is the highest level of school you have completed or the highest degree you have received? GED or equivalent 05/2022 Sex and Gender Information Value Date Recorded Sex Assigned at Male 07/12/2022 1:04 PM CDT Legal Sex Male 4:24 PM YACHT MASTER Gender Identity Male 07/12/2022 1:04 PM CDT Sexual Orientation Straight 07/12/2022 1: 04 PM CDT documented as of this encounter Plan of Treatment Upcoming Encounters Date Type Department Care Team (Late st Contact Info) Description 10/08/2024 1:00 PM YACHT MASTER Comprehensive Visit Department of Family Medicine in [place], [place] [address] [place] [phone] Bryan Uribe M.D. [address] [place] [phone] documented as of this encounter Visit Diagnoses Not on filedocumented in this encounter Additional Health Concerns Assessment Noted Time PHQ-9 Depression Total Score: 6 03/25/20 24 12:37 PM CDT documented as of this encounter Care Teams Transfer Car Operator Drier Relationship Specialty Start Date End Date Bryan Uribe [place] [phone] PCP - General Family Medicine 04/10/24 documented as of this encounter
--- OUTSIDE RECORDS SUMMARY | 2024-10-06 12:44 | XMS_ITS | Encounter Summary ---
Author Organization [facility] Address [address] [place] [address] Care Team Providers Care Human Service Specialist Name Role Phone Bryan Uribe M.D. Primary Care Provider [phone] Reason for Visit * Reason Onset Date Comments Med Refill 09/09/2024 Encounter Details Date Type Department Care Team (Late st Contact Info) Description 09/09/2024 Refill Department of Family Medicine in [place], [place] [address] [place] [address] Bryan Uribe M.D. [address] [place] [address] Med Refill Social History Tobacco Use Types [...] often do you attend chur ch or yazidism services? Never 07/12/2022 Do you belong to any clubs o r organizations such as uatsdin groups, unions, fraternal or athletic groups, or [...] Answer Date Recorded PHQ-2 Score 2 03/25/2024 [facility] Answer Date [...] your living situation today? I have a [facility] place to live 10/09/2023 Education Answer Date Recorded What is the highest level of school you have completed or the highest degree you have received? GED or equivalent 05/2022 Sex and Gender Information Value Date Recorded Sex Assigned at Male 07/12/2022 1:04 PM CDT Legal Sex Male 4:24 PM ASSISTANT EDITOR Gender Identity Male 07/12/2022 1:04 PM CDT Sexual Orientation Straight 07/12/2022 1: 04 PM CDT documented as of this encounter Miscellaneous Notes * Telephone Encounter - Lexi Grimes, R.M.AGracie - 09/09/2024 4:47 PM ASSISTANT EDITOR Patient informed Rx was sent to the pharmacy. STANT EDITOR * Telephone Encounter - Leix Grimes R.MGracieA. - 09/09/2024 10:25 AM ASSISTANT EDITOR R: Please review pended controlled substance medication and update/approve/deny as applicable. S: Request from: patient B: Chronic Pain Syndrome Last dispensed from [facility] pharmacy on 08/12/24 for a quantity of 60 and for a 30 day supply. Due: now Last saw PCP on: 07/08/24 Next appt with PCP: 10/08/24 A: Refill Oxycodone Controlled Substance Contract signed: YES Recent Urine Screen: YES Pharmacy for Controlled Substances: [facility] Refill history reviewed, no concerns present. STANT EDITOR documented in this encounter Plan of Treatment Upcoming Encounters Date Type Department Care Team (Late st Contact Info) Description 10/08/2024 1:00 PM ASSISTANT EDITOR Comprehensive Visit Department of Family Medicine in [place], [place] [address] [place] [address] Bryan Uribe M.D. [address] [place] [address] documented as of this encounter Visit Diagnoses Diagnosis Chronic Pain Syndrome General Medical Examination Adult- Primary Personal History Of Other Venous Thrombosis And Embolism documented in this encounter Additional Health Concerns Assessment Noted Time PHQ-9 Depression Total Score: 6 03/25/20 24 12:37 PM CDT documented as of this encounter Care Teams Human Service Specialist Relationship Specialty Start Date End Date Bryan Uribe M.D. [address] [address] PCP - General Family Medicine 04/10/24 documented as of this encounter
--- OUTSIDE RECORDS SUMMARY | 2024-10-06 12:44 | XMS_ITS | Encounter Summary ---
Author Organization [facility] Address [address] [place] [address] Care Team Providers Care Carton Filling Machine Operator Name Role Phone Bryan Uribe M.D. Primary Care Provider [phone] Reason for Referral * Outpatient (Routine) - Authorized Specialty Diagnoses / Procedures Referred By Tenisha mccoy Referred To Contact Family Medicine Bryan Uribe M.D. [address] [place] [address] Phone: tel: fax: [facility] Region Referral ID Status Reason Start Date Expiration Date V isits Requested Visits Authorized [id number] Authorized 07/08/2024 01/07/2026 1 1 Reason for Visit * Reason Comments Med Management Pain management foll ow up * Outpatient (Routine) - Closed Specialty Diagnoses / Procedures Referred By Tenisha mccoy Referred To Contact Family Medicine Diagnoses Chronic Pain Syndrome Bryan Uribe M.D. [address] [place] [address] Phone: tel: fax: [facility] Referral ID Status Reason Start Date Expiration Date Visits Re quested Visits Authorized [id number] Closed 03/25/2024 09/24/2025 1 1 Encounter Details Date Type Department Care Team (Late st Contact Info) Description 07/08/2024 1:00 PM CDT Office Visit Department of Family Medicine in [place], [place] [address] [place] [address] Bryan Uribe M.D. [address] [place] [address] Chronic Pain Syndrome (Primary Dx); Radiculopathy Cervical [...] 07/12/2022 How often do you attend chur [employer] or bahai services? Never 07/12/2022 Do you belong to any clubs o r organizations such as cheondoism groups, unions, fraternal or athletic groups, or [...] Answer Date Recorded PHQ-2 Score 2 03/25/2024 [facility] - Occupational [...] PM CDT Legal Sex Male 4:24 PM DIRECTOR OF STRATEGIC PROGRAMS Gender Identity Male 07/12/2022 1:04 PM CDT Sexual Orientation Straight 07/12/2022 1: 04 PM CDT documented as of this encounter Last Filed Vital Signs Vital Sign Reading Time Taken Comments Blood Pressure 110/78 07/08/2024 12:40 PM CDT Pulse 115 07/08/2024 12:40 PM CDT Temperature 36.6 C (97.9 F) 07/08/2024 12:40 PM CDT Respiratory Rate - - Oxygen Saturation 96% 07/08/2024 12:40 PM CDT Inhaled Oxygen Concentration - - Weight 123 kg (271 lb 13.2 oz) 07/08/2024 12:40 PM CDT Height 184 cm (6' 0.44) 07/08/2024 12:40 PM CDT Body Mass Index 36.42 07/08/2024 12:40 PM CDT documented in this encounter Progress Notes * Bryan Uribe M.D. - 07/08/2024 1:00 PM CDT OFFICE VISIT [facility] SUBJECTIVE CHIEF COMPLAINT/REASON FOR VISIT Med Management [...] Seventh Previously under the care of [facility]. Now under the care of [facility]. Cervical spondylosis without myelopathy. Status post [...] mm right foraminal disc protrusion. 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 Currently under the care of [facility]. Reported planned surgical management with spine fusion. Plan for follow-up with Orthopedics for management. He is under controlled substance agreement with id, however when it comes to upcoming surgery, his postoperative pain will need to be managed by Orthopedics. Pain Knee Left Currently under the care of [facility]. MRI of the left knee completed [...] Seventh Previously under the care of [facility]. Now under the care of [facility]. Cervical spondylosis without myelopathy. Status post [...] mm right foraminal disc protrusion. There is gyka-rw-ueiwpdso spondylosis through the rest of the lumbar spine without high-grade stenosis. Currently under the care of [facility]. Reported planned surgical management with spine fusion. Plan for follow-up with Orthopedics for management. He is under controlled substance agreement with me, however when it comes to upcoming surgery, his postoperative pain will need to be managed by Orthopedics. * Assessment & Plan Note - Bryan Uribe M.D. - 07/08/2024 1:00 PM CDTAssociated Problem(s): Pain Knee Left Currently under the care of [facility]. MRI of the left knee completed [...] st Contact Info) Description 10/08/2024 1:00 PM DIRECTOR OF STRATEGIC PROGRAMS Comprehensive Visit Department of Family Medicine in [place], [place] [address] [place] [address] Bryan Uribe M.D. [address] [place] [address] Scheduled Referrals Name Type Priority Associated Diagnoses Orde r Schedule Family Medicine office visit (clinic) Outpatient Referral Routine Expected: 10/07/2024 (Approximate), Expires: 10/07/2025 documented as of this encounter Procedures Procedure Name Priority Date/Time Associated Diagnosis Comments EXTM HEMOGLOBIN A1C, B Routine 01/07/2024 documented in this encounter Results * EXT Hemoglobin A1c (01/07/2024) EXT Hemoglobin A1c, B 8.6 OTHER (SPECIFY IN SENIOR JAVA PROGRAMMER) Blood (Blood, Venous) 01/07/2024 [facility] Provider LAB BLOOD ADD-ON Final Resul t OTHER (SPECIFY IN SENIOR JAVA PROGRAMMER) N/A documented in this encounter Visit Diagnoses Diagnosis Chronic Pain Syndrome- Primary Radiculopathy Cervical Seventh Pain Low Back Unspecified Pain Knee Left General Medical Examination Adult- Primary Personal History Of Other Venous Thrombosis And Embolism documented in this encounter Additional Health Concerns Assessment Noted Time PHQ-9 Depression Total Score: 6 03/25/20 24 12:37 PM CDT documented as of this encounter Care Teams Carton Filling Machine Operator Relationship Specialty Start Date End Date Bryan Uribe M.D. [address] [place] [address] PCP - General Family Medicine 04/10/24 documented as of this encounter
--- OUTSIDE RECORDS SUMMARY | 2024-10-06 12:44 | XMS_ITS | Encounter Summary ---
Author Organization [facility] Address [address] [place] [address] Care Team Providers Care Farm Facility Manager Name Role Phone Bryan Uribe M.D. Primary Care Provider [phone] Encounter Details Date Type Department Care Team (Latest Contact Info) Description 07/08/2024 11:07 AM CDT - 07/08/2024 11:59 PM CDT Hospital Encounter Department of Laboratory Medicine in [place], [place] [address] [place] [address] Bryan Uribe M.D. [address] [place] [address] Hypertensive Chronic Kidney Disease With Stage 1 [...] How often do you attend chur or mormon services? Never 07/12/2022 Do you belong to any clubs o r organizations such as voodoo groups, unions, fraternal or athletic groups, or [...] Answer Date Recorded PHQ-2 Score 2 03/25/2024 [facility] - Occupational [...] your living situation today? I have a [facility] place to live 10/09/2023 Education Answer Date Recorded What is the highest level of school you have completed or the highest degree you have received? GED or equivalent 05/2022 Sex and Gender Information Value Date Recorded Sex Assigned at Male 07/12/2022 1:04 PM CDT Legal Sex Male 4:24 PM CUT AND PRINT MACHINE OPERATOR Gender Identity Male 07/12/2022 1:04 [...] st Contact Info) Description 10/08/2024 1:00 PM CUT AND PRINT MACHINE OPERATOR Comprehensive Visit Department of Family Medicine in [place], [place] [address] [place] [address] Bryan Uribe M.D. [address] [place] [address] documented as of this encounter Procedures Procedure Name Priority Date/Time Associated Diagnosis Comments CONTROLLED SUBSTANCE MONITORING, U Routine 07/08/2024 11:26 AM CDT Chronic Pain Syndrome documented in this encounter Results * (ABNORMAL) Controlled Substance Monitoring Panel, Urine (07/08/2024 11:26 AM CDT) List patient's current medications Not provided 10:02 PM CDT [facility] Comment: ----ADDITIONAL INFORMATION---- Accuracy and completeness of declared medications on reports solely dependent on information submitted by client. Creatinine, Random, U 221.3 mg/dL 4 8:47 AM CDT SDS Specific [place] 1.030 07/09/20 2 4 8:47 AM CDT [facility] pH 5.3 4 8:47 AM CDT [facility] Oxidants Negative Cutoff: 200 mg/L 4 8:47 AM CDT [facility] Comment Normal 4 8:47 AM CDT SDS Barbiturates Negative Cutoff: 200 ng/mL 4 8:47 AM CDT [facility] Cocaine Negative Cutoff: 150 ng/mL 4 8:47 AM CDT [facility] Comment: This cocaine immunoassay targets benzoylecgonine the primary metabolite of cocaine. Tetrahydrocannabinol Negative Cutoff: 50 ng/mL 4 8:47 AM CDT [facility] Comment: This immunoassay targets delta-9 tetrahydrocannabinol carboxylic acid (THC-COOH), a metabolite of delta-9 tetrahydrocannabinol the main psychoactive ingredient of marijuana. ----ADDITIONAL INFORMATION---- This report is intended for use in clinical monitoring or management of patients. It is not intended for use in employment-related testing. Codeine Not Detected Cutoff: 25 ng/mL 4 10:51 AM CDT [facility] Comment:Tylenol 3 Ueknvtz-5-gpmg-glucuro nide Not Detected Cutoff: 100 ng/mL 4 10:51 AM CDT [facility] Comment:Metabolite of codein e Morphine Not Detected Cutoff: 25 ng/mL 4 10:51 AM CDT [facility] Comment: Julia Ruiz, MS Contin; Also a minor metabolite (10%) of codeine and can be seen in low concentrations (<2,000 ng/mL) with poppy seed ingestion. Ecyhcihr-0-fkcy-glucur onide Not Detected Cutoff: 100 ng/mL 4 10:51 AM CDT [facility] Comment:Metabolite of morphi ne 6-monoacetylmorphine Not Detected Cutoff: 25 ng/mL 4 10:51 AM CDT [facility] Comment:Metabolite of heroin Hydrocodone Not Detected Cutoff: 25 ng/mL 4 10:51 AM CDT [facility] Comment: Lortab, [place], Vicodin; Also a very minor metabolite of [...] and a minor (<5%) metabolite of morphine. Idwbtgktcpkah-4-vehw-g lucuronide Not Detected Cutoff: 100 ng/mL 4 10:51 AM CDT [facility] Comment:Metabolite of hydrom orphone Oxycodone Present(A) Cutoff: 25 ng/mL 4 10:51 AM CDT [facility] Comment:Endocet, Percocet, O xycontin Noroxycodone Present(A) Cutoff: 25 ng/mL 4 10:51 AM CDT [facility] Comment:Metabolite of oxycod one Oxymorphone Not Detected Cutoff: 25 ng/mL 4 10:51 AM CDT [facility] Comment:Numorphan, Opana; Al so a metabolite of oxycodone. Deoddlvqgxz-2-zvyw-glu curonide Present(A) Cutoff: 100 ng/mL 4 10:51 [...] ng/mL 4 10:51 AM CDT [facility] Comment:Narcan Ehetswcu-7-hlbl-glucur onide Not Detected Cutoff: 100 ng/mL 4 10:51 AM CDT SDS Comment:Metabolite of naloxo ne Methadone, U Not Detected Cutoff: 25 ng/mL 4 10:51 AM CDT SDS Comment:Dolophine EDDP Not Detected Cutoff: 25 ng/mL 4 10:51 AM CDT SDS Comment:Metabolite of methad one Propoxyphene Not Detected [...] Cutoff: 50 ng/mL 4 10:51 AM CDT SDS Comment:Metabolite of tapent adol Swmgotoxke-yllo-tynmaz onide Not Detected Cutoff: 100 ng/mL 4 [...] oxycodone and several metabolites (noroxycodone, noroxymorphone, and cjrimajopal-5-rtk a-glucuronide). Suspect use of oxycodone and/or oxymorphone within the past three days. 4 10:51 AM CDT [facility] Comment: ----ADDITIONAL INFORMATION---- This test was developed and its performance characteristics determined by [facility] in a manner consistent with CLIA [...] 4 8:44 AM CDT [facility] Comment:Metabolite of Flunit razepam Flurazepam Not Detected Cutoff: 10 ng/mL 4 8:44 AM CDT SDS Comment:Dalmane 2-Hydroxy Ethyl Flurazepam Not Detected Cutoff: 10 ng/mL 4 8:44 AM CDT [facility] Comment:Metabolite of Fluraz epam Lorazepam Not Detected Cutoff: 10 ng/mL 4 8:44 AM CDT SDS Comment:Ativan Lorazepam Glucuronide Not Detected Cutoff: 50 ng/mL 4 8:44 AM CDT [facility] Comment:Metabolite of Loraze naeem Midazolam Not Detected Cutoff: 10 ng/mL 4 8:44 AM CDT SDS Comment:Versed Alpha-Hydroxy Midazolam Not Detected Cutoff: 10 ng/mL 4 8:44 AM CDT SDS Comment:Metabolite of Midazo harris Oxazepam Not Detected Cutoff: 10 ng/mL 4 8:44 AM CDT [facility] Comment:Serax; Also a metabo lite of Chlordiazepoxide, Diazepam, or Temazepam. Oxazepam Glucuronide Not Detected Cutoff: 50 ng/mL 4 8:44 AM CDT [facility] Comment:Metabolite of Oxazep am Prazepam Not Detected Cutoff: 10 ng/mL 4 8:44 AM CDT [facility] Comment:Centrax Temazepam Not Detected Cutoff: [...] 4 8:44 AM CDT [facility] Comment:Ambien Zolpidem Epkphn-0-Duahacewww acid Not Detected Cutoff: 10 ng/mL 4 [...] developed and its performance characteristics determined by [facility] in a manner consistent with CLIA requirements. This test has not been cleared or approved by the U.S. Food and Drug Administration. Methamphetamine Not Detected Cutoff: 100 ng/mL 4 11:12 AM CDT [facility] Comment:Desoxyn Amphetamine Not Detected Cutoff: 100 ng/mL 4 11:12 AM CDT [facility] Comment: Dyanavel XR, Adzenys ER, Adderall, Vyvanse; Also a metabolite of methamphetamine 3,4-methylenedioxymeth amphetamine (MDMA) Not Detected Cutoff: 100 ng/mL 4 11:12 AM CDT [facility] 3,0-hsawtpayrqfbii-F-e thylamphetamine (MDEA) Not Detected Cutoff: 100 ng/mL 4 11:12 AM CDT [facility] 3,4-methylenedioxyamph etamine (MDA) Not Detected Cutoff: 100 ng/mL 4 11:12 AM CDT [facility] Comment:Also a metabolite of MDMA and/or MDEA Ephedrine Not Detected Cutoff: 100 ng/mL 4 11:12 AM CDT [facility] Pseudoephedrine Not Detected Cutoff: 100 ng/mL 4 11:12 AM CDT [facility] Comment:Sudafed Phentermine Not Detected Cutoff: 100 ng/mL 4 11:12 AM CDT [facility] Comment:Adipex-P, Lomaira, Q symia Phencyclidine (PCP) Not Detected Cutoff: 20 ng/mL 4 11:12 AM CDT [facility] Methylphenidate Not Detected Cutoff: 20 ng/mL 4 11:12 AM CDT [facility] Comment:Ritalin, Concerta Ritalinic acid Not Detected Cutoff: 100 ng/mL 4 11:12 AM CDT [facility] Comment:Metabolite of methyl phenidate Stimulant Interpretation No stimulants were detected. The absence of expected drug(s) and/or drug metabolite(s) may indicate non-compliance, altered pharmacokinetics, inappropriate timing of specimen collection relative to drug administration, diluted/adulterat ed urine, or limitations of testing. 4 11:12 AM T [facility] Comment: ----ADDITIONAL INFORMATION---- This test was developed and its performance characteristics determined by [facility] in a manner consistent with CLIA requirements. This test has not been cleared or approved by the U.S. Food and Drug Administration. Urine (Urine, Voided) 07/08/2024 11:26 AM CDT 07/08/2024 10:02 PM CDT us Bryan Uribe M.D. LAB URINE ORDERABLES Final Resu lt [facility] [address] [place] [address] [facility] [address] [place] [address] [facility] [address] [place] [address] [place] [address] documented in this encounter Visit Diagnoses Diagnosis Hypertensive Chronic Kidney Disease With Stage 1 Through Stage 4 Chronic Kidney Disease, Or Unspecified Chronic Kidney Disease Chronic Pain Syndrome General Medical Examination Adult- Primary Personal History Of Other Venous Thrombosis And Embolism documented in this encounter Additional Health Concerns Assessment Noted Time PHQ-9 Depression Total Score: 6 03/25/20 24 12:37 PM CDT documented as of this encounter Care Teams Farm Facility Manager Relationship Specialty Start Date End Date Bryan Uribe M.D. [address] [place] [phone] PCP - General Family Medicine 04/10/24 documented as of this encounter
--- OUTSIDE RECORDS SUMMARY | 2024-10-06 12:44 | XMS_ITS | Clinical Summary ---
Author Organization [facility] Address [address] [place] [address] Care Team Providers Care Adult School Teacher Name Role Phone Bryan Uribe M.D. Primary Care Provider [phone] Source Comments Patient records contain information from all sites at [facility]. For routine questions regarding patient records, call [phone] during business hours, M-F 8:00 AM - 5:00 PM Central Time. Record requests for emergency care only can be directed to [phone] at any time.[facility] Allergies Active Allergy Reactions Criticality Noted Date [...] Active Problems Problem Noted Date Diagnosed Date General Medical Examination Adult 10/02/2024 Personal History Of Other Venous Thrombosis And Embolism 10/02/2024 Overview (10/02/2024): DVT 08/2024, diagnosed in the emergency room. Started on Eliquis for management. Pain Knee Left 07/08/2024 Assessment & Plan (07/09/2024 5:17 PM CDT): Currently under the care of [facility]. MRI of the left knee [...] mm right foraminal disc protrusion. There is gxjc-ad-btwijtwx spondylosis through the rest of the lumbar spine without high-grade stenosis. Currently under the care of [facility]. Reported planned surgical management with [...] months. Assessment & Plan (11/20/2023 4:36 PM NEWS LIBRARY DIRECTOR): Indication for opiate pain medication: Cervical radiculopathy. Continue Cymbalta 30 mg twice a day for pain management. Current medication: Oxycodone for cervical radiculopathy. Number prescribed per month: 60 Expected duration: To be determined Controlled substance agreement signed: 01/22/2023 Clinic follow up recommended every 3 months. Radiculopathy Cervical Seventh 07/12/2022 Assessment & Plan (07/08/2024 1:19 PM CDT): Previously under the care of [facility]. Now under the care of [facility]. Cervical spondylosis without myelopathy. Status [...] Previously under the care of [facility]. Cervical spondylosis without myelopathy. Status post medial branch nerve block 05/2023. On chronic opiate therapy with oxycodone 5 mg twice a day. Assessment & Plan (11/20/2023 4:34 PM NEWS LIBRARY DIRECTOR): Previously under the care of [facility]. Cervical spondylosis without myelopathy. Status post medial branch nerve block 05/2023. On chronic opiate therapy with oxycodone 5 mg twice a day. Diabetes Mellitus Type 2 Peripheral Neuropathy 0 05/29/2016 Assessment & Plan (11/20/2023 4:35 PM NEWS LIBRARY DIRECTOR): Diabetes appears appears poorly controlled. Medications: Continue [...] to get the insulin and semaglutide. Unfortunately [facility] is unable to receive prescriptions at [...] 02/28/2016 Assessment & Plan (11/20/2023 4:29 PM NEWS LIBRARY DIRECTOR): He was encouraged to try to continue efforts at losing weight. He will continue Ozempic 2mg weekly. We discussed lifestyle modification to manage obesity. The overall health benefits of weight loss were reviewed. Hyperlipidemia 08/25/2014 Assessment & Plan (11/20/2023 4:31 PM NEWS LIBRARY DIRECTOR): Lipids are appears adequately controlled. Medication recommendations: Continue Arovastatin 40mg daily. Cholesterol management goals were discussed. Lifestyle modification recommendations to improve cholesterol were reviewed. Plan for annual lipid monitoring. Hypertensive Chronic Kidney Disease With Stage 1 Through Stage 4 Chronic Kidney Disease, Or Unspecified Chronic Kidney Disease 10/27/2013 Assessment & Plan (11/20/2023 4:31 PM NEWS LIBRARY DIRECTOR): Blood pressure appears well controlled. Medications recommendations: [...] (09/09/2021): Added automatically from request for surgery [id number] Clostridium Difficile Infection 06/29/2016 09/18/2017 Diabetes Mellitus Type 2 Wit h Diabetic Nephropathy 05/23/2016 10/09/2023 Ureterolithiasis 03/01/2016 09/18/2017 Stone Kidney 10/27/2013 09/18/2017 Encounters Date Type Department Care Team Description 09/09/2024 Refill Department of Family Medicine in [place] [address] [place] [address] Bryan Uribe M.D. Med Refill 08/12/2024 Refill Department of Family Medicine in [place] [address] [place] [address] Bryan Uribe M.D. Med Refill 07/16/2024 Clinical Communication Department of Family Medicine in [place] [address] [place] [address] Bryan Uribe M.D. Welcome To Medicare 07/08/2024 1:00 PM CDT Office Visit Department of Family Medicine in [place] [address] [place] [address] Bryan Uribe M.D. Chronic Pain Syndrome (Primary Dx); Radiculopathy Cervical Seventh; Pain Low Back Unspecified; Pain Knee Left 07/08/2024 11:07 AM CDT - 07/08/2024 11:59 PM CDT Hospital Encounter Department of Laboratory Medicine in [place] [address] [place] [address] Bryan Uribe M.D. Hypertensive Chronic Kidney Disease With Stage 1 Through Stage 4 Chronic Kidney Disease, Or Unspecified Chronic Kidney Disease; Chronic Pain Syndrome Discharge Disposition: Home or Self Care from Last 3 Months Immunizations Name Administration [...] Mother leatha bhardwaj Leukemia Mother's Brother Uche tello Relation Name Status Comments Father Maternal Grandmother [...] week 07/12/2022 How often do you attend [facility] or zoroastrian services? Never 07/12/2022 Do you belong to any clubs o r organizations such as yazdanism groups, unions, fraternal or athletic groups, or [...] Answer Date Recorded PHQ-2 Score 2 03/25/2024 [facility] - Occupational Stress Questionnaire Answer Date Recorded [...] your living situation today? [facility] 10/09/2023 Education Answer Date Recorded What is the highest level of school you have completed or the highest degree you have received? GED or equivalent 05/2022 Sex and Gender Information Value Date Recorded Sex Assigned at Male 07/12/2022 1:04 PM CDT Legal Sex Male 4:24 PM NEWS LIBRARY DIRECTOR Gender Identity Male 07/12/2022 1:04 PM CDT Sexual Orientation Straight 07/12/2022 1: 04 PM CDT Last Filed Vital Signs Vital Sign Reading Time Taken Comments Blood Pressure 110/78 07/08/2024 12:40 PM CDT Pulse 115 07/08/2024 12:40 PM CDT Temperature 36.6 C (97.9 F) 07/08/2024 12:40 PM CDT Respiratory Rate 20 10/09/2023 1:16 PM NEWS LIBRARY DIRECTOR Oxygen Saturation 96% 07/08/2024 12:40 PM CDT Inhaled Oxygen Concentration - - Weight 123 kg (271 lb 13.2 oz) 07/08/2024 12:40 PM CDT Height 184 cm (6' 0.44) 07/08/2024 12:40 PM CDT Body Mass Index 36.42 07/08/2024 12:40 PM CDT Plan of Treatment Upcoming Encounters Date Type Department Care Team (Late st Contact Info) Description 10/08/2024 1:00 PM NEWS LIBRARY DIRECTOR Comprehensive Visit Department of Family Medicine in [place], [place] [address] [place] [address] Bryan Uribe M.D. [address] [place] [address] Health Maintenance Due Date Last Done Comments [...] 03/25/2025 03/25/2024 Generalized Anxiety (SUZIE-7) 03/25/2025 03/25/2024 Visit: Chronic Disease, age 18+ [...] Depression Screening (Annual PHQ-2) Completed 03/25/2024, 03/25/2024 Opioid Risk Tool (ORT) Completed 03/25/2024 IPV Vaccines Aged Out No longer eligi ble based on patient's age to complete this topic Procedures Procedure Name Priority Date/Time Associated Diagnosis Comments CONTROLLED SUBSTANCE MONITORING, U Routine 07/08/2024 11:26 AM CDT Chronic Pain Syndrome EXTM HEMOGLOBIN A1C, B Routine 01/07/2024 BASIC METABOLIC PANEL, S/P Routine 10/09/2023 1:52 PM NEWS LIBRARY DIRECTOR Hypertension And Chronic Kidney Disease Stage 1 ALBUMIN, RANDOM, U Routine 2022 8: 48 AM NEWS LIBRARY DIRECTOR Diabetes Mellitus Type 2 Peripheral Neuropathy (HCC) HCV AB SCRN W/REFLEX TO HCV PCR, S Routine 2022 8:35 AM NEWS LIBRARY DIRECTOR Screening Test Laboratory LIPID PANEL, S Routine 2022 8:35 AM NEWS LIBRARY DIRECTOR Hyperlipidemia COLONOSCOPY 07/03/2022 9:11 AM CDT COLOGUARD Routine 08/27/2021 10:40 AM CDT Screening Cancer Colon from Last 3 Months or Most Recently Relevant to Health Maintenance Results * (ABNORMAL) Controlled Substance Monitoring Panel, Urine (07/08/2024 11:26 AM CDT) List patient's current medications Not provided 4 10:02 PM [facility] Comment: ----ADDITIONAL INFORMATION---- Accuracy and completeness of declared medications on reports solely dependent on information submitted by client. Creatinine, Random, U 221.3 mg/dL 4 8:47 AM T [facility] Specific Adams 1.030 07/09/20 2 4 8:47 AM CDT SDS pH 5.3 4 8:47 AM CDT SDS Oxidants Negative Cutoff: 200 mg/L 4 8:47 AM CDT [facility] Comment Normal 4 8:47 AM CDT [facility] Barbiturates Negative Cutoff: 200 ng/mL 4 8:47 AM T [facility] Cocaine Negative Cutoff: 150 ng/mL 4 8:47 AM T [facility] Comment: This cocaine immunoassay targets benzoylecgonine the primary metabolite of cocaine. Tetrahydrocannabinol Negative Cutoff: 50 ng/mL 4 8:47 AM T [facility] Comment: This immunoassay targets delta-9 tetrahydrocannabinol carboxylic acid (THC-COOH), a metabolite of delta-9 tetrahydrocannabinol the main psychoactive ingredient of marijuana. ----ADDITIONAL INFORMATION---- This report is intended for use in clinical monitoring or management of patients. It is not intended for use in employment-related testing. Codeine Not Detected Cutoff: 25 ng/mL 4 10:51 AM T [facility] Comment:Tylenol 3 Kpajcyy-1-jjqv-glucuro nide Not Detected Cutoff: 100 ng/mL 4 10:51 AM T [facility] Comment:Metabolite of codein e Morphine Not Detected Cutoff: 25 ng/mL 4 10:51 AM CDT [facility] Comment: Julia Ruiz, MS Contin; Also a minor metabolite (10%) of codeine and can be seen in low concentrations (<2,000 ng/mL) with poppy seed ingestion. Mgrhwdyp-5-lrqx-glucur onide Not Detected Cutoff: 100 ng/mL 4 10:51 AM CDT [facility] Comment:Metabolite of morphi ne 6-monoacetylmorphine Not Detected Cutoff: 25 ng/mL 4 10:51 AM CDT [facility] Comment:Metabolite of heroin Hydrocodone Not Detected Cutoff: 25 ng/mL 4 10:51 AM CDT [facility] Comment: Lortab, [place], Vicodin; Also a very minor metabolite of [...] and a minor (<5%) metabolite of morphine. Zzaonsovypnek-5-snao-g lucuronide Not Detected Cutoff: 100 ng/mL 4 10:51 AM CDT [facility] Comment:Metabolite of hydrom orphone Oxycodone Present(A) Cutoff: 25 ng/mL 4 10:51 AM CDT [facility] Comment:Endocet, Percocet, O xycontin Noroxycodone Present(A) Cutoff: 25 ng/mL 4 10:51 AM CDT [facility] Comment:Metabolite of oxycod one Oxymorphone Not Detected Cutoff: 25 ng/mL 4 10:51 AM CDT [facility] Comment:Numorphan, Opana; Al so a metabolite of oxycodone. Dmlaupaofmk-2-cuoi-glu curonide Present(A) Cutoff: 100 ng/mL 4 10:51 [...] ng/mL 4 10:51 AM CDT [facility] Comment:Narcan Oqlijhir-8-swev-glucur onide Not Detected Cutoff: 100 ng/mL 4 [...] AM CDT [facility] Comment:Metabolite of tapent adol Fngbsqigxg-xnjz-vcltit onide Not Detected Cutoff: 100 ng/mL 4 10:51 AM CDT [facility] Comment:Metabolite of tapent adol Buprenorphine Not Detected Cutoff: 5 ng/mL 4 10:51 AM CDT [facility] Comment:Buprenex, Suboxone Norbuprenorphine Not Detected Cutoff: 5 ng/mL 4 10:51 AM CDT [facility] Comment:Metabolite of bupren orphine Norbuprenorphine glucuronide Not Detected Cutoff: 20 ng/mL 4 10:51 AM CDT [facility] Comment:Metabolite of bupren orphine Opioid Interpretation Test detected the presence of oxycodone and several metabolites (noroxycodone, noroxymorphone, and efszmwrmoyb-0-ale a-glucuronide). Suspect use of oxycodone and/or oxymorphone within the past three days. 4 10:51 AM T [facility] Comment: ----ADDITIONAL INFORMATION---- This test was developed and its performance characteristics determined by [facility] in a manner consistent with CLIA requirements. This test has not been cleared or approved by the U.S. Food and Drug Administration. Alprazolam Not Detected Cutoff: 10 ng/mL 4 8:44 AM CDT [facility] Comment:Xanax Alpha-Hydroxyalprazola m Not Detected Cutoff: 10 ng/mL 4 8:44 AM CDT [facility] Comment:Metabolite of Alpraz olam Alpha-Hydroxyalprazola m Glucuronide Not Detected Cutoff: 50 ng/mL 4 8:44 AM CDT [facility] Comment:Metabolite of Alpraz olam Chlordiazepoxide Not Detected Cutoff: 10 ng/mL 4 8:44 AM CDT [facility] Comment:Librium Clobazam Not Detected Cutoff: 10 ng/mL 4 8:44 AM CDT [facility] Comment:Frisium, Onfi N-Desmethylclobazam Not Detected Cutoff: 200 ng/mL 4 8:44 AM CDT [facility] Comment:Metabolite of Clobaz am Clonazepam Not Detected Cutoff: 10 ng/mL 4 8:44 AM CDT [facility] Comment:Klonopin, Rivotril 7-aminoclonazepam Not Detected Cutoff: 10 ng/mL 4 8:44 AM CDT [facility] Comment:Metabolite of Clonaz epam Diazepam Not Detected Cutoff: 10 ng/mL 4 8:44 AM CDT [facility] Comment:Valium Nordiazepam Not Detected Cutoff: 10 ng/mL 4 8:44 AM CDT [facility] Comment:Metabolite of Chlord iazepoxide, Diazepam, or Prazepam. Flunitrazepam Not Detected Cutoff: 10 ng/mL 4 8:44 AM CDT [facility] Comment:Rohypnol 7-aminoflunitrazepam Not Detected Cutoff: 10 ng/mL 4 8:44 AM CDT [facility] Comment:Metabolite of Flunit razepam Flurazepam Not Detected Cutoff: 10 ng/mL 4 8:44 AM CDT [facility] Comment:Dalmane 2-Hydroxy Ethyl Flurazepam Not Detected Cutoff: 10 ng/mL 4 8:44 AM CDT [facility] Comment:Metabolite of Fluraz epam Lorazepam Not Detected Cutoff: 10 ng/mL 4 8:44 AM CDT [facility] Comment:Ativan Lorazepam Glucuronide Not Detected Cutoff: 50 ng/mL 4 8:44 AM CDT [facility] Comment:Metabolite of Loraze naeem Midazolam Not Detected Cutoff: 10 ng/mL 4 8:44 AM CDT [facility] Comment:Versed Alpha-Hydroxy Midazolam Not Detected Cutoff: 10 ng/mL 4 8:44 AM CDT [facility] Comment:Metabolite of Midazo harris Oxazepam Not Detected Cutoff: 10 ng/mL 4 8:44 AM CDT [facility] Comment:Serax; Also a metabo lite of Chlordiazepoxide, Diazepam, or Temazepam. Oxazepam Glucuronide Not Detected Cutoff: 50 ng/mL 4 8:44 AM CDT [facility] Comment:Metabolite of Oxazep am Prazepam Not Detected Cutoff: 10 ng/mL 4 8:44 AM CDT [facility] Comment:Centrax Temazepam Not Detected Cutoff: 10 ng/mL 4 8:44 AM CDT [facility] Comment:Restoril; Also a met abolite of Diazepam. [...] 4 8:44 AM CDT [facility] Comment:Ambien Zolpidem Hjdoec-6-Oqxfjhwuwv acid Not Detected Cutoff: 10 ng/mL 4 8:44 AM CDT [facility] Comment:Metabolite of Zolpid em Benzodiazepine Interpretation No benzodiazepines were detected. The absence of expected drug(s) and/or drug metabolite(s) may indicate non-compliance, altered pharmacokinetics, inappropriate timing of specimen collection relative to drug administration, diluted/adulterat ed urine, or limitations of testing. 4 8:44 AM T [facility] Comment: ----ADDITIONAL INFORMATION---- This test was developed and its performance characteristics determined by [facility] in a manner consistent with CLIA [...] 100 ng/mL 4 11:12 AM CDT [facility] 3,0-pzgnmntntuxomo-G-e thylamphetamine (MDEA) Not Detected Cutoff: 100 ng/mL 4 11:12 AM CDT [facility] 3,4-methylenedioxyamph etamine (MDA) Not Detected Cutoff: 100 ng/mL 4 11:12 AM CDT [facility] Comment:Also a metabolite of MDMA and/or MDEA Ephedrine Not Detected Cutoff: 100 ng/mL 4 11:12 AM CDT [facility] Pseudoephedrine Not Detected Cutoff: 100 ng/mL 4 11:12 AM T [facility] Comment:Sudafed Phentermine Not Detected Cutoff: 100 ng/mL 4 11:12 AM CDT [facility] Comment:Adipex-P, Lomaira, Q symia Phencyclidine (PCP) Not Detected Cutoff: 20 ng/mL 4 11:12 AM CDT [facility] Methylphenidate Not Detected Cutoff: 20 ng/mL 4 11:12 AM CDT [facility] Comment:Ritalin, Concerta Ritalinic acid Not Detected Cutoff: 100 ng/mL 4 11:12 AM T [facility] Comment:Metabolite of methyl phenidate Stimulant Interpretation No stimulants were detected. The absence of expected drug(s) and/or drug metabolite(s) may indicate non-compliance, altered pharmacokinetics, inappropriate timing of specimen collection relative to drug administration, diluted/adulterat ed urine, or limitations of testing. 11:12 AM [facility] Comment: ----ADDITIONAL INFORMATION---- This test was developed and its performance characteristics determined by [facility] in a manner consistent with CLIA requirements. This test has not been cleared or approved by the U.S. Food and Drug Administration. Urine (Urine, Voided) 07/08/2024 11:26 AM CDT 07/08/2024 10:02 PM CDT Bryan Uribe M.D. LAB URINE ORDERABLES Final Resu lt [facility] [place] [address] [address] [facility] [address] [id number] [facility] [address] [place] [address] [place] [phone] * (ABNORMAL) Basic Metabolic Panel (10/09/2023 1:52 PM NEWS LIBRARY DIRECTOR) [facility] Signature Potassium, P 4.4 3.6 - 5.2 mmol/L 10/09/2023 4:06 PM NEWS LIBRARY DIRECTOR [facility] Sodium, P 133(L) 135 - 145 mmol/L 10/09/2023 4:06 PM NEWS LIBRARY DIRECTOR [facility] Chloride, P 101 98 - 107 mmol/L 10/09/2023 4:06 PM NEWS LIBRARY DIRECTOR [facility] Bicarbonate, P 22 22 - 29 mmol/L 10/09/2023 4:06 PM NEWS LIBRARY DIRECTOR [facility] Anion Gap, P 10 7 - 15 10/09/2023 4:06 PM NEWS LIBRARY DIRECTOR [facility] BUN (Blood Urea Nitrogen), P 23 8 - 24 mg/dL 10/09/2023 4:06 PM NEWS LIBRARY DIRECTOR [facility] Creatinine 0.69(L) 0.74 - 1.35 mg/dL 10/09/2023 4:06 PM NEWS LIBRARY DIRECTOR [facility] Estimated GFR (eGFR) >90 >=60 mL/min/BSA 10/09/2023 4:06 PM NEWS LIBRARY DIRECTOR [facility] Comment: Estimated GFR calculated using the 2020 CKD_EPI creatinine equation. Calcium, Total, P 8.5(L) 8.6 - 10.0 mg/dL 10/09/2023 4:06 PM NEWS LIBRARY DIRECTOR [facility] Glucose, P 280(H) 70 - 140 mg/dL 10/09/2023 4:06 PM NEWS LIBRARY DIRECTOR [facility] Blood (Blood, Venous) 10/09/2023 1:52 PM NEWS LIBRARY DIRECTOR 10/09/2023 3:34 PM NEWS LIBRARY DIRECTOR us Tello Wood M.D. LAB BLOOD ADD-ON Final Result [facility] [address] [place] [address], [facility] NPRG [facility] [address] [place] [address] * (ABNORMAL) Albumin, Random, Urine (2022 8:48 AM NEWS LIBRARY DIRECTOR) Microalbumin 100.0 mg/L 2022 10:46 AM NEWS LIBRARY DIRECTOR [facility] Creatinine 124 mg/dL 2022 10:46 AM NEWS LIBRARY DIRECTOR [facility] Albumin/Creatinin e Ratio 81(H) <17 mg/g 2022 10:46 AM NEWS LIBRARY DIRECTOR [facility] Urine (Urine, Voided) 2022 8:48 AM NEWS LIBRARY DIRECTOR 2022 10:11 AM NEWS LIBRARY DIRECTOR us Bryan Uribe M.D. LAB URINE ORDERABLES Final Resu lt [facility] [address] [place] [address], [facility] NPRG [facility] [address] [place] [address] * Lipid Panel (2022 8:35 AM NEWS LIBRARY DIRECTOR) Triglycerides 98 mg/dL 2022 10:39 AM NEWS LIBRARY DIRECTOR [facility] Comment: ----REFERENCE VALUE---- Normal: <150 mg/dL Borderline High: 150-199 mg/dL High: 200-499 mg/dL Very High: > or =500 mg/dL Cholesterol, Total 147 mg/dL 2021 10:39 AM NEWS LIBRARY DIRECTOR [facility] Comment: ----REFERENCE VALUE---- Desirable: < 200 mg/dL Borderline High: 200 - 239 mg/dL High: > or = 240 mg/dL Cholesterol, LDL, Calculated 88 mg/dL 2022 10:39 AM NEWS LIBRARY DIRECTOR [facility] Comment: ----REFERENCE VALUE---- Desirable: <100 mg/dL Above Desirable: 100-129 mg/dL Borderline High: 130-159 mg/dL High: 160-189 mg/dL Very High: >=190 mg/dL ----ADDITIONAL INFORMATION---- LDL cholesterol calculated using the Boyd/NIH equation. Cholesterol, HDL 41 >=40 mg/dL 10/20/20 10:39 AM NEWS LIBRARY DIRECTOR [facility] Cholesterol, Non-HDL, Calculated 106 mg/dL 2022 10:39 AM NEWS LIBRARY DIRECTOR [facility] Comment: ----REFERENCE VALUE---- Desirable: <130 mg/dL Above Desirable: 130-159 mg/dL Borderline High: 160-189 mg/dL High: 190-219 mg/dL Very High: > or =220 mg/dL Fasting (8 HR or more) Yes 2022 10:13 AM NEWS LIBRARY DIRECTOR [facility] Blood (Blood, Venous) 2022 8:35 AM NEWS LIBRARY DIRECTOR 2022 10:13 AM NEWS LIBRARY DIRECTOR Bryan Uribe M.D. LAB BLOOD ADD-ON Final Result [facility] [address] [place] [address], [place] NPRG [facility] [address] [place] [address] * HCV Ab Scrn w/Reflex to HCV PCR, Serum (2022 8:35 AM NEWS LIBRARY DIRECTOR) HCV Ab Screen, S Negative Negative 10/21/2022 12:31 PM NEWS LIBRARY DIRECTOR [facility] Comment:Pfjvlc-ci-taiwod rat io is <1.00. Blood (Blood, Venous) 2022 8:35 AM NEWS LIBRARY DIRECTOR 10/21/2022 12:31 PM NEWS LIBRARY DIRECTOR Bryan Uribe M.D. LAB MICROBIOLOGY - BLOOD ORDERA BLES Final Result [facility] [address] [place] [address] [facility] [address] [place] [address] * COLONOSCOPY (07/03/2022 9:11 AM CDT) Narrative Procedure Note Geetha Spicer M.D. - 07/03/2022 9:11 AM CDT [facility] GI Patient Name: Rey Bhardwaj Procedure Date: [...] colonic preparation and pertinent family history. For [facility] providers, detailed recommendations are available as an AskMayoExpert Care Process Model: <<[email or web address]>. Theabove is an interim recommendation assuming adenomatous [...] the bowel preparation was evaluated using theBBPS ([place] Bowel Preparation Scale) with scores of: Right [...] analysis of stool DNA-biomarkers with hemoglobin immunoassay. Quantitative values of individual biomarkers are not [...] (Aleksandar Banks al, N Engl J Med 2014;370(14):9199-5056.) Cologuard may produce a false negative or false positive result (no colorectal cancer or precancerous polyp present at colonoscopy follow up). A negative Cologuard test result does not guarantee the absence of CRC or advanced adenoma (pre-cancer). The current Cologuard screening interval is every 3 years. ([place] [employer] Society and U.S. Multi-Society Task Force). Cologuard performance data in a 10,000 patient pivotal study using colonoscopy as the reference method can be accessed at the following location: [email or web address]. Additional description of the Cologuard test process, warnings and precautions can be found at [email or web address]. Stool (Stool) 08/27/2021 10: 40 AM CDT 08/28/2021 10:54 PM CDT Bryan Uribe M.D. LAB BODY FLUIDS AND STOOLS NEGAR BARRIOS Final Result [employer] [address] [place] [address] [employer] [address] [place] [address], [address] [place] [address] from Last 3 Months or Most Recently Relevant to Health Maintenance Insurance [facility] [employer] Advance Directives For more information, please contact: [phone] * Full Code (Latest Code Status on File) Date Activated Date Inactivated Comments 07/03/2022 9:20 AM 07/03/2022 12:00 PM Question Answer Comments Full Code: Not Discussed Due to: Patient not available * Full Code Date Activated Date Inactivated Comments 07/03/2022 8:06 AM 07/03/2022 9:20 AM Question Answer Comments Full Code: Not Discussed Due to: Patient not available Care Teams Adult School Teacher Relationship Specialty Start Date End Date Bryan Uribe M.D. [facility] [place] [address] PCP - General Family Medicine 04/10/24
--- OUTSIDE RECORDS SUMMARY | 2024-10-06 12:44 | XMS_ITS ---
Author Organization [facility] Address [address] [place] [address] Care Team Providers Care Machine Sander Name Role Phone Unavailable Unavailable Unavailable Surgery Details Not on file Complications Check Surgery Details section. Procedure Estimated Blood Loss Check Surgery Details section. Procedure Findings Check Surgery Details section. Procedure Specimens Taken Check Surgery Details section.
--- OUTSIDE RECORDS SUMMARY | 2024-10-06 12:44 | XMS_ITS | Referral Summary ---
Author Organization [facility] Address [address] [place] [address] Care Team Providers Care Medicaid Billing Specialist Name Role Phone Bryan Uribe M.D. Primary Care Provider [phone] Source Comments Patient records contain information from all sites at [facility]. For routine questions regarding patient records, call [phone] during business hours, M-F 8:00 AM - 5:00 PM Central Time. Record requests for emergency care only can be directed to [phone] at any time.[facility] Encounters Date Type Department Care Team Description 09/09/2024 Refill Department of Family Medicine in [place] [address] [place] [address] Bryan Uribe M.D. Med Refill 08/12/2024 Refill Department of Family Medicine in [place], [place] [address] [place] [address] Bryan Uribe M.D. Med Refill 07/16/2024 Clinical Communication Department of Family Medicine in [place], [place] [address] [place] [address] Bryan Uribe M.D. Welcome To Medicare 07/08/2024 1:00 PM CDT Office Visit Department of Family Medicine in [place], [place] [address] [place] [address] Bryan Uribe M.D. Chronic Pain Syndrome (Primary Dx); Radiculopathy Cervical Seventh; Pain Low Back Unspecified; Pain Knee Left 07/08/2024 11:07 AM CDT - 07/08/2024 11:59 PM CDT Hospital Encounter Department of Laboratory Medicine in [place], [place] [address] [place] [address] Bryan Uribe M.D. Hypertensive Chronic Kidney Disease With Stage 1 Through Stage 4 Chronic Kidney Disease, Or Unspecified Chronic Kidney Disease; Chronic Pain Syndrome Discharge Disposition: Home or Self Care from Last 3 Months Allergies Active Allergy [...] Pen Needle 32 gauge x 5/32 needle 11/04/20 21 Active semaglutide (Ozempic) 2 [...] PM CDT): Currently under the care of [facility]. MRI of the left knee [...] mm right foraminal disc protrusion. There is rxjf-zu-lycqqxye spondylosis through the rest of the lumbar spine without high-grade stenosis. Currently under the care of [facility]. Reported planned surgical management with [...] months. Assessment & Plan (11/20/2023 4:36 PM THERMOMETER PRODUCTION WORKER): Indication for opiate pain medication: Cervical radiculopathy. Continue Cymbalta 30 mg twice a day for pain management. Current medication: Oxycodone for cervical radiculopathy. Number prescribed per month: 60 Expected duration: To be determined Controlled substance agreement signed: 01/22/2023 Clinic follow up recommended every 3 months. Radiculopathy Cervical Seventh 07/12/2022 Assessment & Plan (07/08/2024 1:19 PM CDT): Previously under the care of [facility]. Now under the care of [facility]. Cervical spondylosis without myelopathy. Status [...] CDT): Previously under the care of [facility]. Cervical spondylosis without myelopathy. Status post medial branch nerve block 05/2023. On chronic opiate therapy with oxycodone 5 mg twice a day. Assessment & Plan (11/20/2023 4:34 PM THERMOMETER PRODUCTION WORKER): Previously under the care of [facility]. Cervical spondylosis without myelopathy. Status post medial branch nerve block 05/2023. On chronic opiate therapy with oxycodone 5 mg twice a day. Diabetes Mellitus Type 2 Peripheral Neuropathy 0 05/29/2016 Assessment & Plan (11/20/2023 4:35 PM THERMOMETER PRODUCTION WORKER): Diabetes appears appears poorly controlled. Medications: Continue [...] to get the insulin and semaglutide. Unfortunately [facility] is unable to receive prescriptions at the [...] 02/28/2016 Assessment & Plan (11/20/2023 4:29 PM THERMOMETER PRODUCTION WORKER): He was encouraged to try to continue efforts at losing weight. He will continue Ozempic 2mg weekly. We discussed lifestyle modification to manage obesity. The overall health benefits of weight loss were reviewed. Hyperlipidemia 08/25/2014 Assessment & Plan (11/20/2023 4:31 PM THERMOMETER PRODUCTION WORKER): Lipids are appears adequately controlled. Medication recommendations: Continue Arovastatin 40mg daily. Cholesterol management goals were discussed. Lifestyle modification recommendations to improve cholesterol were reviewed. Plan for annual lipid monitoring. Hypertensive Chronic Kidney Disease With Stage 1 Through Stage 4 Chronic Kidney Disease, Or Unspecified Chronic Kidney Disease 10/27/2013 Assessment & Plan (11/20/2023 4:31 PM THERMOMETER PRODUCTION WORKER): Blood pressure appears well controlled. Medications recommendations: [...] (09/09/2021): Added automatically from request for surgery [id number] Clostridium Difficile Infection 06/29/2016 09/18/2017 Diabetes Mellitus [...] How often do you attend chur or tenriism services? Never 07/12/2022 Do you belong to any clubs o r organizations such as temple groups, unions, fraternal or athletic groups, or [...] Answer Date Recorded PHQ-2 Score 2 03/25/2024 [facility] of Occupat ional [facility] - Occupational Stress Questionnaire Answer Date Recorded [...] PM CDT Legal Sex Male 4:24 PM THERMOMETER PRODUCTION WORKER Gender Identity Male 07/12/2022 1:04 PM CDT Sexual Orientation Straight 07/12/2022 1: 04 PM CDT Last Filed Vital Signs Vital Sign Reading Time Taken Comments Blood Pressure 110/78 07/08/2024 12:40 PM CDT Pulse 115 07/08/2024 12:40 PM CDT Temperature 36.6 C (97.9 F) 07/08/2024 12:40 PM CDT Respiratory Rate 20 10/09/2023 1:16 PM THERMOMETER PRODUCTION WORKER Oxygen Saturation 96% 07/08/2024 12:40 PM CDT Inhaled Oxygen Concentration - - Weight 123 kg (271 lb 13.2 oz) 07/08/2024 12:40 PM CDT Height 184 cm (6' 0.44) 07/08/2024 12:40 PM CDT Body Mass Index 36.42 07/08/2024 12:40 PM CDT Plan of Treatment Upcoming Encounters Date Type Department Care Team (Late st Contact Info) Description 10/08/2024 1:00 PM THERMOMETER PRODUCTION WORKER Comprehensive Visit Department of Family Medicine in [place], [place] [address] [place] [address] Bryan Uribe M.D. [address] [place] [address] Procedures Procedure Name Priority Date/Time Associated Diagnosis Comments CONTROLLED SUBSTANCE MONITORING, U Routine 07/08/2024 11:26 AM CDT Chronic Pain Syndrome EXTM HEMOGLOBIN A1C, B Routine 01/07/2024 BASIC METABOLIC PANEL, S/P Routine 10/09/2023 1:52 PM THERMOMETER PRODUCTION WORKER Hypertension And Chronic Kidney Disease Stage 1 ALBUMIN, RANDOM, U Routine 2022 8: 48 AM THERMOMETER PRODUCTION WORKER Diabetes Mellitus Type 2 Peripheral Neuropathy (HCC) HCV AB SCRN W/REFLEX TO HCV PCR, S Routine 2022 8:35 AM THERMOMETER PRODUCTION WORKER Screening Test Laboratory LIPID PANEL, S Routine 2022 8:35 AM THERMOMETER PRODUCTION WORKER Hyperlipidemia COLONOSCOPY 07/03/2022 9:11 AM CDT COLOGUARD Routine 08/27/2021 10:40 AM CDT Screening Cancer Colon from Last 3 Months or Most Recently Relevant to Health Maintenance Results * (ABNORMAL) Controlled Substance Monitoring Panel, Urine (07/08/2024 11:26 AM CDT) List patient's current medications Not provided 4 10:02 PM CDT [facility] Comment: ----ADDITIONAL INFORMATION---- Accuracy and completeness of declared medications on reports solely dependent on information submitted by client. Creatinine, Random, U 221.3 mg/dL 4 8:47 AM CDT [facility] Specific [place] 1.030 07/09/20 2 4 8:47 AM CDT [...] 4 10:51 AM CDT [facility] Comment:Tylenol 3 Lkktshl-7-kagx-glucuro nide Not Detected Cutoff: 100 ng/mL 4 10:51 AM CDT [facility] Comment:Metabolite of codein e Morphine Not Detected Cutoff: 25 ng/mL 4 10:51 AM CDT [facility] Comment: Julia Ruiz, MS Contin; Also a minor metabolite (10%) of codeine and can be seen in low concentrations (<2,000 ng/mL) with poppy seed ingestion. Yzislvvj-5-mdwt-glucur onide Not Detected Cutoff: 100 ng/mL 4 10:51 AM CDT [facility] Comment:Metabolite of morphi ne 6-monoacetylmorphine Not Detected Cutoff: 25 ng/mL 4 10:51 AM CDT [facility] Comment:Metabolite of heroin Hydrocodone Not Detected Cutoff: 25 ng/mL 4 10:51 AM CDT [facility] Comment: Lortab, Shoshone, Vicodin; Also a very minor metabolite of [...] and a minor (<5%) metabolite of morphine. Jdodcdwxegvba-7-xhzn-g lucuronide Not Detected Cutoff: 100 ng/mL 4 10:51 AM CDT [facility] Comment:Metabolite of hydrom orphone Oxycodone Present(A) Cutoff: 25 ng/mL 4 10:51 AM CDT [facility] Comment:Endocet, Percocet, O xycontin Noroxycodone Present(A) Cutoff: 25 ng/mL 4 10:51 AM CDT [facility] Comment:Metabolite of oxycod one Oxymorphone Not Detected Cutoff: 25 ng/mL 4 10:51 AM CDT [facility] Comment:Numorphan, Opana; Al so a metabolite of oxycodone. Hskcbzfqyzo-4-barj-glu curonide Present(A) Cutoff: 100 ng/mL 4 10:51 [...] ng/mL 4 10:51 AM CDT [facility] Comment:Narcan Amyevqbm-8-dkpu-glucur onide Not Detected Cutoff: 100 ng/mL 4 [...] AM CDT [facility] Comment:Metabolite of tapent adol Fpjldobfsx-qrwb-vdkwpn onide Not Detected Cutoff: 100 ng/mL 4 [...] oxycodone and several metabolites (noroxycodone, noroxymorphone, and khnjxdalpzq-9-xrw a-glucuronide). Suspect use of oxycodone and/or oxymorphone within the past three days. 4 10:51 AM CDT [facility] Comment: ----ADDITIONAL INFORMATION---- This test was developed and its performance characteristics determined by [facility] in a manner consistent with CLIA requirements. [...] 10 ng/mL 4 8:44 AM CDT [facility] Comment:Friisium, Onfi N-Desmethylclobazam Not Detected Cutoff: 200 ng/mL 4 8:44 AM CDT [facility] Comment:Metabolite of Clobaz am Clonazepam Not Detected Cutoff: 10 ng/mL 4 8:44 AM CDT [facility] Comment:Klonopin, Rivotril 7-aminoclonazepam Not Detected Cutoff: 10 ng/mL 4 8:44 AM CDT [facility] Comment:Metabolite of Clonaz epam Diazepam Not Detected Cutoff: 10 ng/mL 4 8:44 AM CDT [facility] Comment:Valium Nordiazepam Not Detected Cutoff: 10 ng/mL 4 8:44 AM CDT SDS Comment:Metabolite of Chlord iazepoxide, Diazepam, or Prazepam. Flunitrazepam Not Detected Cutoff: 10 ng/mL 4 8:44 AM CDT SDS Comment:Rohypnol 7-aminoflunitrazepam Not Detected Cutoff: 10 ng/mL 4 8:44 AM CDT SDS Comment:Metabolite of Flunit razepam Flurazepam Not Detected Cutoff: 10 ng/mL 4 8:44 AM CDT [facility] Comment:Dalmane 2-Hydroxy Ethyl Flurazepam Not Detected Cutoff: 10 ng/mL 4 8:44 AM CDT SDS Comment:Metabolite of Fluraz epam Lorazepam Not Detected [...] 4 8:44 AM CDT [facility] Comment:Ambien Zolpidem Vdmren-9-Gqnpyknwqg acid Not Detected Cutoff: 10 ng/mL 4 8:44 AM CDT [facility] Comment:Metabolite of Zolpid em Benzodiazepine Interpretation No benzodiazepines were detected. The absence of expected drug(s) and/or drug metabolite(s) may indicate non-compliance, altered pharmacokinetics, inappropriate timing of specimen collection relative to drug administration, diluted/adulterat ed urine, or limitations of testing. 4 8:44 AM CDT [facility] Comment: ----ADDITIONAL INFORMATION---- This test was developed and its performance characteristics determined by [facility] in a manner consistent with CLIA requirements. This test has not been cleared or approved by the U.S. Food and Drug Administration. Methamphetamine Not Detected Cutoff: 100 ng/mL 4 11:12 AM CDT [facility] Comment:Desoxyn Amphetamine Not Detected Cutoff: 100 ng/mL 4 11:12 AM CDT [facility] Comment: Dyanavel XR, Adzenys ER, Adderall, Vyvanse; Also a metabolite of methamphetamine 3,4-methylenedioxymeth amphetamine (MDMA) Not Detected Cutoff: 100 ng/mL 4 11:12 AM CDT [facility] 3,9-eeoghvzzgzoine-C-e thylamphetamine (MDEA) Not Detected Cutoff: 100 ng/mL 4 11:12 AM CDT [facility] 3,4-methylenedioxyamph etamine (MDA) Not Detected Cutoff: 100 ng/mL 4 11:12 AM CDT [facility] Comment:Also a metabolite of MDMA and/or MDEA Ephedrine Not Detected Cutoff: 100 ng/mL 4 11:12 AM CDT [facility] Pseudoephedrine Not Detected Cutoff: 100 ng/mL 4 11:12 AM CDT [facility] Comment:Sudafed Phentermine Not Detected Cutoff: 100 ng/mL 4 11:12 AM T [facility] Comment:Adipex-P, Lomaira, Q symia Phencyclidine (PCP) Not Detected Cutoff: 20 ng/mL 4 11:12 AM CDT [facility] Methylphenidate Not Detected Cutoff: 20 ng/mL 4 11:12 AM T [facility] Comment:Ritalin, Concerta Ritalinic acid Not Detected Cutoff: 100 ng/mL 4 11:12 AM T [facility] Comment:Metabolite of methyl phenidate Stimulant Interpretation No stimulants were detected. The absence of expected drug(s) and/or drug metabolite(s) may indicate non-compliance, altered pharmacokinetics, inappropriate timing of specimen collection relative to drug administration, diluted/adulterat ed urine, or limitations of testing. 4 11:12 AM T [facility] Comment: ----ADDITIONAL INFORMATION---- This test was developed and its performance characteristics determined by [facility] in a manner consistent with CLIA requirements. This test has not been cleared or approved by the U.S. Food and Drug Administration. Urine (Urine, Voided) 07/08/2024 11:26 AM CDT 07/08/2024 10:02 PM CDT Bryan Uribe M.D. LAB URINE ORDERABLES Final Resu lt [facility] [address] [place] [address] [facility] [address] [place] [address] [facility] [address] [place] [address] [place] [place] [address] * (ABNORMAL) Basic Metabolic Panel (10/09/2023 1:52 PM THERMOMETER PRODUCTION WORKER) Potassium, P 4.4 3.6 - 5.2 mmol/L 10/09/2023 4:06 PM THERMOMETER PRODUCTION WORKER NPRG Sodium, P 133(L) 135 - 145 mmol/L 10/09/2023 4:06 PM THERMOMETER PRODUCTION WORKER NPRG Chloride, P 101 98 - 107 mmol/L 10/09/2023 4:06 PM THERMOMETER PRODUCTION WORKER NPRG Bicarbonate, P 22 22 - 29 mmol/L 10/09/2023 4:06 PM THERMOMETER PRODUCTION WORKER NPRG Anion Gap, P 10 7 - 15 10/09/2023 4:06 PM THERMOMETER PRODUCTION WORKER NPRG BUN (Blood Urea Nitrogen), P 23 8 - 24 mg/dL 10/09/2023 4:06 PM THERMOMETER PRODUCTION WORKER NPRG Creatinine 0.69(L) 0.74 - 1.35 mg/dL 10/09/2023 4:06 PM THERMOMETER PRODUCTION WORKER NPRG Estimated GFR (eGFR) >90 >=60 mL/min/BSA 10/09/2023 4:06 PM THERMOMETER PRODUCTION WORKER [facility] Comment: Estimated GFR calculated using the 2020 CKD_EPI creatinine equation. Calcium, Total, P 8.5(L) 8.6 - 10.0 mg/dL 10/09/2023 4:06 PM THERMOMETER PRODUCTION WORKER NPRG Glucose, P 280(H) 70 - 140 mg/dL 10/09/2023 4:06 PM THERMOMETER PRODUCTION WORKER NPRG Blood (Blood, Venous) 10/09/2023 1:52 PM THERMOMETER PRODUCTION WORKER 10/09/2023 3:34 PM THERMOMETER PRODUCTION WORKER us Tello Wood M.D. LAB BLOOD ADD-ON Final Result Performing Organization Address [facility] Co de Phone Number [facility] [address] [place] [address], [facility] NPRG [address] [address] * (ABNORMAL) Albumin, Random, Urine (2022 8:48 AM THERMOMETER PRODUCTION WORKER) Microalbumin 100.0 mg/L 2022 10:46 AM THERMOMETER PRODUCTION WORKER NPRG Creatinine 124 mg/dL 2022 10:46 AM THERMOMETER PRODUCTION WORKER NPRG Albumin/Creatinin e Ratio 81(H) <17 mg/g 2022 10:46 AM THERMOMETER PRODUCTION WORKER NPRG Urine (Urine, Voided) 2022 8:48 AM THERMOMETER PRODUCTION WORKER 2022 10:11 AM THERMOMETER PRODUCTION WORKER us Bryan Uribe M.D. LAB URINE ORDERABLES Final Resu lt Performing Organization Address [facility] Co de Phone Number [facility] [address] [place] [address], [facility]G [address] [address] * Lipid Panel (2022 8:35 AM THERMOMETER PRODUCTION WORKER) Triglycerides 98 mg/dL 2022 10:39 AM THERMOMETER PRODUCTION WORKER NPRG Comment: ----REFERENCE VALUE---- Normal: <150 mg/dL Borderline High: 150-199 mg/dL High: 200-499 mg/dL Very High: > or =500 mg/dL Cholesterol, Total 147 mg/dL 2021 10:39 AM THERMOMETER PRODUCTION WORKER NPR[facility] Comment: ----REFERENCE VALUE---- Desirable: < 200 mg/dL Borderline High: 200 - 239 mg/dL High: > or = 240 mg/dL Cholesterol, LDL, Calculated 88 mg/dL 2022 10:39 AM THERMOMETER PRODUCTION WORKER NPRG Comment: ----REFERENCE VALUE---- Desirable: <100 mg/dL Above Desirable: 100-129 mg/dL Borderline High: 130-159 mg/dL High: 160-189 mg/dL Very High: >=190 mg/dL ----ADDITIONAL INFORMATION---- LDL cholesterol calculated using the Boyd/NIH equation. Cholesterol, HDL 41 >=40 mg/dL 10/20/20 10:39 AM THERMOMETER PRODUCTION WORKER NPRG Cholesterol, Non-HDL, Calculated 106 mg/dL 2022 10:39 AM THERMOMETER PRODUCTION WORKER NPR[facility] Comment: ----REFERENCE VALUE---- Desirable: <130 mg/dL Above Desirable: 130-159 mg/dL Borderline High: 160-189 mg/dL High: 190-219 mg/dL Very High: > or =220 mg/dL Fasting (8 HR or more) Yes 2022 10:13 AM THERMOMETER PRODUCTION WORKER NPR Blood (Blood, Venous) 2022 8:35 AM THERMOMETER PRODUCTION WORKER 2022 10:13 AM THERMOMETER PRODUCTION WORKER Bryan Uribe M.D. LAB BLOOD ADD-ON Final Result [facility] [address] [place] [address], [facility] [address] [place] [address] * HCV Ab Scrn w/Reflex to HCV PCR, Serum (2022 8:35 AM THERMOMETER PRODUCTION WORKER) HCV Ab Screen, S Negative Negative 10/21/2022 12:31 PM THERMOMETER PRODUCTION WORKER [facility] Comment:Oxwfxl-mz-uxlura rat io is <1.00. Blood (Blood, Venous) 2022 8:35 AM THERMOMETER PRODUCTION WORKER 10/21/2022 12:31 PM THERMOMETER PRODUCTION WORKER us Bryan Uribe M.D. LAB MICROBIOLOGY - BLOOD ORDERA BLES Final Result [facility] [address] [place] [address] [facility] [address] [place] [address] * COLONOSCOPY (07/03/2022 9:11 AM CDT) Narrative Procedure Note Geetha Spicer M.D. - 07/03/2022 9:11 AM CDT [facility] [place] [facility] Patient Name: Rey Jenkins Procedure Date: [...] colonic preparation and pertinent family history. For [facility] providers, detailed recommendations are available as an AskMayoExpert Care Process Model: <<[email or web address]>. Theabove is an interim recommendation assuming adenomatous [...] the bowel preparation was evaluated using theBBPS ([place] Bowel Preparation Scale) with scores of: Right [...] (Aleksandar Banks al, N Engl J Med 2014;370(14):4823-9370.) Cologuard may produce a false negative or false positive result (no colorectal cancer or precancerous polyp present at colonoscopy follow up). A negative Cologuard test result does not guarantee the absence of CRC or advanced adenoma (pre-cancer). The current Cologuard screening interval is every 3 years. ([place] [employer] Society and U.S. Multi-Society Task Force). Cologuard performance data in a 10,000 patient pivotal study using colonoscopy as the reference method can be accessed at the following location: [email or web address].Art-Exchange/results. Additional description of the Cologuard test process, warnings and precautions can be found at www.iLincrd.com. Stool (Stool) 08/27/2021 10: 40 AM CDT 08/28/2021 10:54 PM CDT Bryan Uribe M.D. LAB BODY FLUIDS AND STOOLS NEGAR BARRIOS Final Result [facility] [address] [place] [address] [facility] [employer] [address] [facility], [address] [place] [address] from Last 3 Months or Most Recently Relevant to Health Maintenance Insurance [employer] Advance Directives For more information, please contact: [phone] * Full Code (Latest Code Status on File) Date Activated Date Inactivated Comments 07/03/2022 9:20 AM 07/03/2022 12:00 PM Question Answer Comments Full Code: Not Discussed Due to: Patient not available * Full Code Date Activated Date Inactivated Comments 07/03/2022 8:06 AM 07/03/2022 9:20 AM Question Answer Comments Full Code: Not Discussed Due to: Patient not available Care Teams Medicaid Billing Specialist Relationship Specialty Start Date End Date Bryan Uribe M.D. [facility] [place] [address] PCP - General Family Medicine 04/10/24
--- OUTSIDE RECORDS SUMMARY | 2024-10-06 12:45 | XMS_ITS | Referral Summary ---
Author Organization [facility] Address [address] [place] [address] Care Team Providers Care Decorating Machine Tender Name Role Phone Bryan Uribe MD Primary Care Provider [phone] Allergies No known active allergies Medications amLODIPine [...] on file Legal Sex Male 3:29 AM PROCESS IMPROVEMENT SPECIALIST Gender Identity Not on file Sexual Orientation Not on file Last Filed Vital Signs Vital Sign Reading Time Taken Comments Blood Pressure 114/70 09/01/2016 1:43 PM CDT Pulse 84 09/26/2017 3:23 PM PROCESS IMPROVEMENT SPECIALIST Temperature - - Respiratory Rate - - Oxygen Saturation 98% 09/26/2017 3:23 PM PROCESS IMPROVEMENT SPECIALIST Inhaled Oxygen Concentration - - Weight 117.9 kg (260 lb) 09/26/2017 3:23 PM PROCESS IMPROVEMENT SPECIALIST Height 185.4 cm (6' 1) 09/26/2017 3:23 PM PROCESS IMPROVEMENT SPECIALIST Body Mass Index 34.3 09/26/2017 3:23 PM PROCESS IMPROVEMENT SPECIALIST Plan of Treatment Not on file Insurance [employer] Care Teams Decorating Machine Tender Relationship Specialty Start Date End Date Bryan Uribe MD PCP - General Family Practice 08/24/16
--- OUTSIDE RECORDS SUMMARY | 2024-10-06 12:45 | XMS_ITS | Clinical Summary ---
Author Organization [facility] Address [address] [place] [address] Care Team Providers Care Admin Dir Name Role Phone Bryan Uribe MD Primary Care Provider [phone] Allergies No known active allergies Medications amLODIPine [...] on file Legal Sex Male 3:29 AM CODE OFFICIAL Gender Identity Not on file Sexual Orientation Not on file Last Filed Vital Signs Vital Sign Reading Time Taken Comments Blood Pressure 114/70 09/01/2016 1:43 PM CDT Pulse 84 09/26/2017 3:23 PM CODE OFFICIAL Temperature - - Respiratory Rate - - Oxygen Saturation 98% 09/26/2017 3:23 PM CODE OFFICIAL Inhaled Oxygen Concentration - - Weight 117.9 kg (260 lb) 09/26/2017 3:23 PM CODE OFFICIAL Height 185.4 cm (6' 1) 09/26/2017 3:23 PM CODE OFFICIAL Body Mass Index 34.3 09/26/2017 3:23 PM CODE OFFICIAL Plan of Treatment Not on file Insurance [facility] [employer] Care Teams Admin Dir Relationship Specialty Start Date End Date Bryan Uribe MD PCP - General Family Practice 08/24/16
--- OUTSIDE RECORDS SUMMARY | 2024-10-06 12:45 | XMS_ITS | Clinical Summary ---
Author Organization [facility] Address [place], [place] [address] Care Team Providers Care Plaster Lather Name Role Phone Abhishek Thomas MD Primary [...] Encounters Date Type Department Care Team Description 09/29/2024 Telephone [employer] Prescription Assistance Program ADRIEL SÁNCHEZ [address] [facility] [id number] [place] [address] Chapis Erwin, PharmD Medication Management ([employer] Prescription Assistance- OZEMPIC, TRESIBA, NEEDLES/) 09/29/2024 Patient Outreach [facility] [address] [place] [address] Abhishek Thomas MD Form 09/29/[address] [address] Abhishek Thomas MD Form 09/11/2024 Orders Only [facility] Scanner 1 scan: (1-Ord) [place], KNEE RT WO, 09/11/2024 09/10/2024 Orders Only [facility] Scanner 1 scan: (1-Ord) [facility], CHEST ABDOMEN PELV W, 09/10/2024 09/10/2024 Orders Only [facility] Scanner 1 scan: (1-Ord) [facility], CERVICAL SPINE WO, 09/10/2024 09/10/2024 Orders Only [facility] Scanner 1 scan: (1-Ord) [facility], WRIST RT 3 VIEW, 09/10/2024 09/10/2024 Orders Only [facility] Scanner 1 scan: (1-Ord) [facility], KNEE RT 3 VIEW, 09/10/2024 09/10/2024 Orders Only [facility] Scanner 1 scan: (1-Ord) [facility], FACIAL BONES WO, 09/10/2024 09/04/[address] [address] Abhishek Thomas MD Refill Request (Duloxetine) 08/18/2024 12:30 PM CDT Office Visit [address] [address] Abhishek Thomas MD Diabetes; Lab; ER Follow up (blood clots.) 08/18/2024 Travel 08/12/[address] [address] Abhishek Mcmanus MD ACC Order Request (annual lab work) 08/12/[address] [address] Abhishek Thomas MD Questions (appointment coming up) 08/08/2024 Orders Only [facility] Scanner 1 scan: (1-Ord) ANGEL, VENOUS LE BI, 08/08/2024 07/16/2024 Telephone [facility] [id number] [place] [address] Jasen James PA Results 07/15/2024 10:50 AM CDT Office Visit [address] [address] Jasen James PA Pre-Op Exam (DOS: 07/22/24, Dr. Nick Baltazar, [facility], ) 07/15/2024 Travel 07/08/[address] [phone] Abhishek Thomas MD Form from Last 3 Months Immunizations Name Administration [...] 116 08/18/2024 12:33 PM CDT Temperature 36.6 C (97.8 F) 07/15/2024 11:00 AM CDT Respiratory Rate - - Oxygen Saturation 97% 08/18/2024 12: 33 PM CDT Inhaled Oxygen Concentration - - Weight 124.9 kg (275 lb 6.4 oz) 024 12:33 PM CDT Height 185.4 cm (6' 1) 07/15/2024 11:0 0 AM CDT Body Mass Index 36.33 07/15/2024 11:00 AM CDT Plan of Treatment Upcoming Encounters Date Type Department Care Team (Late st Contact Info) Description 10/07/2024 12:30 PM MANAGER OF PMO Office Visit [address] [address] [place] [id number] [place] [address] 02/16/2025 12:55 PM CDT Office Visit [address] [address] Abhishek Thomas [place] [id number] [place] [address] Health Maintenance Due Date Last Done Comments [...] Procedure Name Priority Date/Time Associated Diagnosis Comments SCAN-CT INTERPRETATION 4 12:00 AM MANAGER OF PMO SCAN-CT INTERPRETATION 4 12:00 AM MANAGER OF PMO SCAN-CT INTERPRETATION 4 12:00 AM MANAGER OF PMO SCAN-RADIOLOGY REPORT 09/10/2024 12:00 AM MANAGER OF PMO SCAN-RADIOLOGY REPORT 09/10/2024 12:00 AM MANAGER OF PMO SCAN-CT INTERPRETATION 4 12:00 AM MANAGER OF PMO PSA (TOTAL) (QUEST) Routine 08/18/2024 1 2:53 PM CDT Routine health maintenance VITAMIN D 25 (DEFICIENCY) Routine 08/18/2024 12:53 PM CDT Vitamin D deficiency BASIC METABOLIC PANEL Routine 08/18/2024 12:53 PM CDT HTN (hypertension) LIPID PANEL Routine 08/18/2024 12:53 PM CDT Hyperlipemia SCAN-ULTRASOUND REPORT 12:00 AM CDT HEMOGLOBIN Routine 07/15/2024 11:46 AM CDT Pre-op examination POTASSIUM Routine 07/15/2024 11:46 AM CDT Pre-op examination HEMOGLOBIN A1C MONITORING (POCT) Routine 07/15/2024 11:46 AM CDT Type 2 diabetes mellitus without complication, with long-term current use of insulin (HC) SCAN-COLONOSCOPY 07/03/2022 12:0 0 AM CDT from Last 3 Months or Most Recently Relevant to Health Maintenance Results * SCAN-CT INTERPRETATION (09/11/2024 12:00 AM MANAGER OF PMO) Only the most recent of4 resultswithin the time period is included. Anatomical Region Laterality Modality Other Scanner OTHER * SCAN-RADIOLOGY REPORT (09/10/2024 12:00 AM MANAGER OF PMO) Only the most recent of2 resultswithin the time period is included. Anatomical Region Laterality Modality Other Scanner OTHER * PSA (TOTAL) (QUEST) (08/18/2024 12:53 PM CDT) PSA, TOTAL 0.81 < OR = 4.00 ng/mL [facility] Comment: The total PSA value from [...] PM CDT 08/18/2024 12:54 PM CDT Narrative [facility] - 08/19/2024 10:49 AM CDT FASTING:YES FASTING: YES Abhishek Thomas MD SEND OUTS Performing Organization Address [facility] Co de Phone Number Uepaa [facility] [address] [place] [address], [facility] [address] [place] [address] * (ABNORMAL) VITAMIN D 25 (DEFICIENCY) (08/18/2024 12:53 PM CDT) [facility] VITAMIN D,25-OH,TOTAL,IA 18(L) 30 - 100 ng/mL [facility] tawnya [place] Comment: Vitamin D Status 25-OH Vitamin D: Deficiency: <20 ng/mL Insufficiency: 20 - 29 ng/mL Optimal: > or = 30 ng/mL For 25-OH Vitamin D testing on patients on D2-supplementation and patients for whom quantitation of D2 and D3 fractions is required, the QuestAssureD(TM) 25-OH VIT D, (D2,D3), LC/MS/MS is recommended: order code 73391 (patients >2yrs). See Note 1 Note 1 For additional information, please refer to http://education.ReTargeter/faq/MOP496 (This link is being provided for informational/ educational purposes only.) Blood BLOOD SPECIMEN / Unknown 08/18/2024 12:53 PM CDT 08/18/2024 12:54 PM CDT Narrative [facility] - 08/19/2024 10:43 AM CDT FASTING:YES FASTING: YES Abhishek Thomas MD SEND OUTS Performing Organization Address [facility]/ZIP Co de Phone Number Uepaa [facility] [address] [facility] [place] [address], [place] [phone] [facility] [address] [place] [address] * (ABNORMAL) LIPID PANEL (08/18/2024 12:53 PM CDT) Pathologist [facility] CHOLESTEROL, TOTAL 154 <200 mg/dL [facility] HDL CHOLESTEROL 39(L) > OR = 40 mg/dL [facility] TRIGLYCERIDES 177(H) <150 mg/dL [facility] LDL-CHOLESTEROL 88 mg/dL (calc) [facility] Comment: Reference range: <100 Desirable range <100 mg/dL for primary prevention; <70 mg/dL for patients with CHD or diabetic patients with > or = 2 CHD risk factors. LDL-C is now calculated using the Dorothy calculation, which is a validated novel method providing better accuracy than the Friedewald equation in the estimation of LDL-C. Richie SS et al. KUSUM. 2013;310(55): 7953-1124 (http://education.ReTargeter/faq/IGF123) CHOL/HDLC RATIO 3.9 <5.0 (calc) [facility] NON HDL CHOLESTEROL 115 <130 mg/dL (calc) [facility] Comment: For patients with diabetes plus 1 major ASCVD risk factor, treating to a non-HDL-C goal of <100 mg/dL (LDL-C of <70 mg/dL) is considered a therapeutic option. Blood BLOOD SPECIMEN / Unknown 08/18/2024 12:53 PM CDT 08/18/2024 12:54 PM CDT Narrative [facility] - 08/19/2024 5:49 AM CDT FASTING:YES FASTING: YES Abhishek Thomas MD CHEMISTRY [facility] [address] [place] [address], [facility] [address] [place] [address] * (ABNORMAL) BASIC METABOLIC PANEL (08/18/2024 12:53 PM CDT) GLUCOSE 144(H) 65 - 99 mg/dL [facility] Comment: Fasting reference interval For someone without known diabetes, a glucose value >125 mg/dL indicates that they may have diabetes and this should be confirmed with a follow-up test. UREA NITROGEN (BUN) 26(H) 7 - 25 mg/dL [facility] CREATININE 0.83 0.70 - 1.30 mg/dL [facility] EGFR 101 > OR = 60 mL/min/1.7 3m2 [facility] BUN/CREATININE RATIO 31(H) 6 [...] 8 7 - 17 mmol/L (calc) [facility] CALCIUM 9.3 8.6 - 10.3 mg/dL [facility] Blood BLOOD SPECIMEN / Unknown 08/18/2024 12:53 PM CDT 08/18/2024 12:54 PM CDT Narrative [facility] - 08/19/2024 5:49 AM CDT FASTING:YES FASTING: YES Abhishek Thomas MD CHEMISTRY [facility]epaa [facility] [address] [place] [address], [facility] [address] * SCAN-ULTRASOUND REPORT (08/08/2024 12:00 AM CDT) Anatomical Region Laterality Modality Other Scanner OTHER * HEMOGLOBIN (07/15/2024 11:46 AM CDT) HEMOGLOBIN 14.9 13.5 - 17.5 g/dL 07/15/2024 11:50 AM CDT [facility] MCV 84 80 - 100 fL 07/15/2024 11:50 AM CDT [facility] Blood BLOOD SPECIMEN / Unknown Venipuncture / Unknown 07/15/2024 11:46 AM CDT 07/15/2024 11:46 AM CDT Jasen GOODSON HEMATOLOGY [facility] [address] [place] [address] * POTASSIUM (07/15/2024 11:46 AM CDT) POTASSIUM 4.9 3.5 - 5.1 mmol/L 07/16/2024 1:21 AM CDT [facility] Blood BLOOD SPECIMEN / Unknown Venipuncture / Unknown 07/15/2024 11:46 AM CDT 07/15/2024 11:46 AM CDT Jasen GOODSON CHEMISTRY [facility] [address] [address], * (ABNORMAL) HEMOGLOBIN A1C MONITORING (POCT) (07/15/2024 11:46 AM CDT) HEMOGLOBIN A1C MONITORING (POCT) 8.0(H) <=6.4 % 07/15/2024 12:07 PM CDT [facility] Blood BLOOD SPECIMEN / Unknown Venipuncture / Unknown 07/15/2024 11:46 AM CDT 07/15/2024 11:46 AM CDT Narrative [facility] - 07/15/2024 12:07 PM CDT (<=6.9%) Indicates good control (7.0% to 7.9%) Indicates fair control (>=8.0%) Indicates poor control NOTE: These thresholds are guidelines and individual targets may vary. Falsely low levels may be seen with: Recent Transfusion, Recent Significant Blood Loss, Hemolytic Diseases, or Falsely elevated levels may be seen with: Untreated Anemias, Splenectomy Jasen GOODSON CHEMISTRY [facility] [address] [place] [address] * SCAN-COLONOSCOPY (07/03/2022 12:00 AM CDT) Scanner OTHER from Last 3 Months or Most Recently Relevant to Health Maintenance Care Teams Plaster Lather Relationship Specialty Start [place] [address] [place] [address] PCP - General Family Practice 07/10/24
--- NOTE | 2024-10-06 13:00 | CRLHL7_ITS ---
For Patients: As a result of the Century Cures Act, medical imaging exams and procedure reports are released immediately into your electronic medical record. You may view this report before your referring provider. If you have questions, please contact your health care provider. EXAM: MRI OF THE RIGHT KNEE, WITHOUT CONTRAST CLINICAL INDICATION: Knee pain. PRIOR SURGERY: None reported. COMPARISON PLAIN FILMS: 10 September 2024 COMPARISON CROSS-SECTIONAL IMAGING STUDIES: CT 11 September 2024 TECHNICAL: Axial, sagittal and coronal T1, PD, PD FS and T2 FS images. 1.5 Courtney MR scanner. Knee coil. FINDINGS: OSSEOUS STRUCTURES: No fracture, marrow edema or marrow replacement process. JOINT SPACE AND CAPSULE: Effusion: No significant joint effusion or synovitis. Joint Bodies: None seen. CRUCIATE LIGAMENTS: Anterior Cruciate Ligament: Normal. Posterior Cruciate Ligament: Normal. EXTENSOR MECHANISM: Distal Quadriceps Tendon: Normal. Patellar Tendon: Normal. Medial Patellar Retinaculum and Medial Patellofemoral Ligament: Normal. Lateral Patellar Retinaculum: Normal. Normal patellar alignment. No patella raman. Normal trochlear depth. Normal lateral trochlear inclination. MEDIAL COLLATERAL LIGAMENT AND POSTEROMEDIAL CORNER COMPLEX: Medial Collateral Ligament: Normal. Medial Head of the Gastrocnemius and Semimembranosus Tendons: Normal. LATERAL COLLATERAL LIGAMENT COMPLEX AND POSTEROLATERAL CORNER COMPLEX: Fibular Collateral Ligament: Normal. Distal Biceps Femoris Tendon Complex: Normal. Iliotibial Band: Normal. Popliteus Tendon: Normal. Posterolateral Corner Capsule: Normal. MEDIAL COMPARTMENT: Medial Meniscus: Normal size and morphology without tear. Articular Cartilage: Articular surfaces appear smooth without focal articular cartilage defect or subchondral marrow changes. LATERAL COMPARTMENT: Lateral Meniscus: Some intermediate mucoid signal in the substance of the anterior horn with possible shallow degenerative tearing at the superior articular margin. Articular Cartilage: Articular surfaces appear smooth without focal articular cartilage defect or subchondral marrow changes. PATELLOFEMORAL COMPARTMENT: Articular Cartilage: Irregular grade 2 to grade 3 thinning in the trochlear apex and inferior lateral trochlea with patchy subchondral edema. Minor grade 2 thinning in the patella. PERIARTICULAR SOFT TISSUES: Popliteal Cyst: No significant popliteal cyst. Periarticular Cysts or Ganglia: None. Bursae: No prepatellar, superficial infrapatellar, deep infrapatellar, pes anserinus or semimembranosus/MCL bursitis. Musculature: No muscle atrophy or muscle edema. Subcutaneous and Soft Tissues: Large roughly lentiform complex fluid collection in the subcutaneous adipose of the lateral distal thigh and across the lateral knee into the ventral calf. Some high T1 signal at the periphery and strandy internal appearance. Craniocaudal length at least 13 cm extending above the field of view proximally. Greatest width at the joint line roughly 9 centimeters. Neurovascular Structures: Normal. IMPRESSION: 1. Large hematoma of the deep subcutaneous adipose lateral thigh, knee and into the anterior calf. 2. Mucoid degeneration and possible shallow degenerative periarticular surface tearing anterior horn lateral meniscus. No other internal derangement. 3. Mild osteoarthritis patellofemoral compartment Dictated by Ricardo Kwong MD @ 10/07/2024 11:48:38 AM (Electronically Signed)
== END 2024-10-06 12:41 | disposition home or self-care (01) ==
LOC: MRI 12:42
PROVIDERS: PCP Family Medicine; Visit Provider Orthopaedic Surgery
DX: M25.561 Pain in right knee (principal); S80.01XA Contusion of right knee, initial encounter; M17.11 Unilateral primary osteoarthritis, right knee
CPT/HCPCS: 73721

== ENCOUNTER 2024-10-14 09:13 | Outpatient (CLI) | payer MEDICARE, SELFPAY ==
--- OUTSIDE RECORDS SUMMARY | 2024-10-14 09:16 | XMS_ITS | Encounter Summary ---
Author Organization [facility] Address [address] [place] [address] Care Team Providers Care Clinical Resource Manager Name Role Phone Bryan Uribe M.D. Primary Care Provider [phone] Reason for Visit * Reason Onset Date Comments Welcome To Medicare 07/16/2024 Encounter Details Date Type Department Care Team (Latest Contact Info) Description 07/16/2024 Clinical Communication Department of Family Medicine in [place], [place] [address] [place] [address] Bryan Uribe M.D. [address] [place] [address] Welcome To Medicare Social History Tobacco Use [...] often do you attend chur ch or anabaptist services? Never 07/12/2022 Do you belong to any clubs o r organizations such as jewish groups, unions, fraternal or athletic groups, or [...] Answer Date Recorded PHQ-2 Score 2 03/25/2024 [facility] Questionnaire Answer Date [...] your living situation today? I have a [facility] place to live 10/09/2023 Education Answer Date Recorded What is the highest level of school you have completed or the highest degree you have received? GED or equivalent 05/2022 Sex and Gender Information Value Date Recorded Sex Assigned at Male 07/12/2022 1:04 PM CDT Legal Sex Male 4:24 PM DATA COLLECTION ASSOCIATE Gender Identity Male 07/12/2022 1:04 PM CDT Sexual Orientation Straight 07/12/2022 1: 04 PM CDT documented as of this encounter Plan of Treatment Upcoming Encounters Date Type Department Care Team (Late st Contact Info) Description 12/03/2024 8:30 AM DATA COLLECTION ASSOCIATE Comprehensive Visit Department of Family Medicine in [place], [place] [address] [place] [address] Bryan Uribe M.D. [address] [place] [phone] documented as of this encounter Visit Diagnoses Not on filedocumented in this encounter Additional Health Concerns Assessment Noted Time PHQ-9 Depression Total Score: 6 03/25/20 24 12:37 PM CDT documented as of this encounter Care Teams Clinical Resource Manager Relationship Specialty Start Date End Date Bryan [place]ribe [place] [phone] PCP - General Family Medicine 04/10/24 documented as of this encounter
--- OUTSIDE RECORDS SUMMARY | 2024-10-14 09:16 | XMS_ITS ---
Author Organization [facility] Address [address] [place] [address] Care Team Providers Care Punch Machine Hand Name Role Phone Unavailable Unavailable Unavailable Surgery Details Not on file Complications Check Surgery Details section. Procedure Estimated Blood Loss Check Surgery Details section. Procedure Findings Check Surgery Details section. Procedure Specimens Taken Check Surgery Details section.
--- OUTSIDE RECORDS SUMMARY | 2024-10-14 09:16 | XMS_ITS | Encounter Summary ---
Author Organization [facility] Address [address] [place] [address] Care Team Providers Care Heat And Vent Aircraft Mechanic Name Role Phone Bryan Uribe M.D. Primary Care Provider [phone] Reason for Visit * Reason Onset Date Comments Med Refill 09/09/2024 Encounter Details Date Type Department Care Team (Late st Contact Info) Description 09/09/2024 Refill Department of Family Medicine in [place], [place] [address] [place] [address] Bryan Uribe M.D. [address] [place] [address] Med Refill Social History Tobacco Use Types [...] any clubs o r organizations such as holiness groups, unions, fraternal or athletic groups, or [...] Answer Date Recorded PHQ-2 Score 2 03/25/2024 [facility] Questionnaire Answer Date Recorded [...] your living situation today? I have a [facility] place to live 10/09/2023 Education Answer Date Recorded What is the highest level of school you have completed or the highest degree you have received? GED or equivalent 05/2022 Sex and Gender Information Value Date Recorded Sex Assigned at Male 07/12/2022 1:04 PM CDT Legal Sex Male 4:24 PM ROBOTYPE OPERATOR Gender Identity Male 07/12/2022 1:04 PM CDT Sexual Orientation Straight 07/12/2022 1: 04 PM CDT documented as of this encounter Miscellaneous Notes * Telephone Encounter - Lexi Grimes, R.M.AGracie - 09/09/2024 4:47 PM ROBOTYPE OPERATOR Patient informed Rx was sent to the pharmacy. TYPE OPERATOR * Telephone Encounter - Lexi Grimes R.MGracieA. - 09/09/2024 10:25 AM ROBOTYPE OPERATOR R: Please review pended controlled substance medication and update/approve/deny as applicable. S: Request from: patient B: Chronic Pain Syndrome Last [facility]ensed [facility]24 for a quantity of 60 and for a 30 day supply. Due: now Last saw PCP on: 07/08/24 Next appt with PCP: 10/08/24 A: Refill Oxycodone Controlled Substance Contract signed: YES Recent Urine Screen: YES Pharmacy for Controlled Substances: [facility] Refill history reviewed, no concerns present. TYPE OPERATOR documented in this encounter Plan of Treatment Upcoming Encounters Date Type Department Care Team (Late st Contact Info) Description 12/03/2024 8:30 AM ROBOTYPE OPERATOR Comprehensive Visit Department of Family Medicine in Home, [place] [address] [place] [address] Bryan Uribe M.D. [address] [place] [address] documented as of this encounter Visit Diagnoses Diagnosis Chronic Pain Syndrome documented in this encounter Additional Health Concerns Assessment Noted Time PHQ-9 Depression Total Score: 6 03/25/20 24 12:37 PM CDT documented as of this encounter Care Teams Heat And Vent Aircraft Mechanic Relationship Specialty Start Date End Date Bryan Uribe M[address]. [address] [place] [address] PCP - General Family Medicine 04/10/24 documented as of this encounter
--- OUTSIDE RECORDS SUMMARY | 2024-10-14 09:16 | XMS_ITS | Clinical Summary ---
Author Organization [facility] Address [address] [place] [address] Care Team Providers Care Set Builder Name Role Phone Bryan Uribe M.D. Primary Care Provider [phone] Source Comments Patient records contain information from all sites at [facility]. For routine questions regarding patient records, call [phone] during business hours, M-F 8:00 AM - 5:00 PM Central Time. Record requests for emergency care only can be directed to [phone] at any time.[facility] Allergies Active Allergy Reactions Criticality Noted [...] pain Indication: Chronic Pain/Nonacute Pain. 60 tablet 10/13/20 24 Active oxyCODONE (Roxicodone) 5 mg immediate release tabletIndicat ions:Chronic Pain/Nonacute Pain Take 1 tablet (5 mg total) by mouth 2 (two) times a day as needed for pain Indication: Chronic Pain/Nonacute Pain. 60 tablet 09/09/20 24 024 Discontin ued(Reord er) Active Problems Problem Noted Date Diagnosed Date General Medical Examination Adult 10/02/2024 Personal History Of Other Venous Thrombosis And Embolism 10/02/2024 Overview (10/02/2024): DVT 08/2024, diagnosed in the emergency room. Started on Eliquis for management. Pain Knee Left 07/08/2024 Assessment & Plan (07/09/2024 5:17 PM CDT): Currently under the care of [facility]. MRI of the left [...] mm right foraminal disc protrusion. There is [id number] spondylosis through the rest of the lumbar spine without high-grade stenosis. Currently under the care of [facility]. Reported planned surgical management [...] months. Assessment & Plan (11/20/2023 4:36 PM BOOM MASTER): Indication for opiate pain medication: Cervical radiculopathy. Continue Cymbalta 30 mg twice a day for pain management. Current medication: Oxycodone for cervical radiculopathy. Number prescribed per month: 60 Expected duration: To be determined Controlled substance agreement signed: 01/22/2023 Clinic follow up recommended every 3 months. Radiculopathy Cervical Seventh 07/12/2022 Assessment & Plan (07/08/2024 1:19 PM CDT): Previously under the care of [facility]. Now under the care of [facility]. Cervical spondylosis without myelopathy. [...] CDT): Previously under the care of [facility]. Cervical spondylosis without myelopathy. Status post medial branch nerve block 05/2023. On chronic opiate therapy with oxycodone 5 mg twice a day. Assessment & Plan (11/20/2023 4:34 PM BOOM MASTER): Previously under the care of [facility]. Cervical spondylosis without myelopathy. Status post medial branch nerve block 05/2023. On chronic opiate therapy with oxycodone 5 mg twice a day. Diabetes Mellitus Type 2 Peripheral Neuropathy 0 05/29/2016 Assessment & Plan (11/20/2023 4:35 PM BOOM MASTER): Diabetes appears appears poorly controlled. Medications: Continue [...] to get the insulin and semaglutide. Unfortunately [facility] is unable to receive prescriptions at [...] 02/28/2016 Assessment & Plan (11/20/2023 4:29 PM BOOM MASTER): He was encouraged to try to continue efforts at losing weight. He will continue Ozempic 2mg weekly. We discussed lifestyle modification to manage obesity. The overall health benefits of weight loss were reviewed. Hyperlipidemia 08/25/2014 Assessment & Plan (11/20/2023 4:31 PM BOOM MASTER): Lipids are appears adequately controlled. Medication recommendations: Continue Arovastatin 40mg daily. Cholesterol management goals were discussed. Lifestyle modification recommendations to improve cholesterol were reviewed. Plan for annual lipid monitoring. Hypertensive Chronic Kidney Disease With Stage 1 Through Stage 4 Chronic Kidney Disease, Or Unspecified Chronic Kidney Disease 10/27/2013 Assessment & Plan (11/20/2023 4:31 PM BOOM MASTER): Blood pressure appears well controlled. Medications recommendations: [...] (09/09/2021): Added automatically from request for surgery [id number] Clostridium Difficile Infection 06/29/2016 09/18/2017 Diabetes Mellitus Type 2 Wit h Diabetic Nephropathy 05/23/2016 10/09/2023 Ureterolithiasis 03/01/2016 09/18/2017 Stone Kidney 10/27/2013 09/18/2017 Encounters Date Type Department Care Team Description 10/13/2024 Refill Department of Family Medicine in [place] [address] [place] [address] Bryan Uribe M.D. Med Refill 09/09/2024 Refill Department of [facility] in [place] [address] [place] [address] Bryan Uribe M.D. Med Refill 08/12/2024 Refill Department of [facility] in [place] [address] [place] [address] Bryan Uribe M.D. Med Refill 07/16/2024 Clinical Communication Department of [facility] in [place] [address] [place] [address] Bryan Uribe M.D. Welcome To Medicare from Last 3 Months Immunizations Name Administration [...] How often do you attend chur or taoist services? Never 07/12/2022 Do you belong to any clubs o r organizations such as congregational groups, unions, fraternal or athletic groups, or [...] Answer Date Recorded PHQ-2 Score 2 03/25/2024 [facility]ational [facility] Questionnaire Answer Date Recorded [...] PM CDT Legal Sex Male 4:24 PM BOOM MASTER Gender Identity Male 07/12/2022 1:04 PM CDT Sexual Orientation Straight 07/12/2022 1: 04 PM CDT Last Filed Vital Signs Vital Sign Reading Time Taken Comments Blood Pressure 110/78 07/08/2024 12:40 PM CDT Pulse 115 07/08/2024 12:40 PM CDT Temperature 36.6 C (97.9 F) 07/08/2024 12:40 PM CDT Respiratory Rate 20 10/09/2023 1:16 PM BOOM MASTER Oxygen Saturation 96% 07/08/2024 12:40 PM CDT Inhaled Oxygen Concentration - - Weight 123 kg (271 lb 13.2 oz) 07/08/2024 12:40 PM CDT Height 184 cm (6' 0.44) 07/08/2024 12:40 PM CDT Body Mass Index 36.42 07/08/2024 12:40 PM CDT Plan of Treatment Upcoming Encounters Date Type Department Care Team (Late st Contact Info) Description 12/03/2024 8:30 AM BOOM MASTER Comprehensive Visit Department of Family Medicine in [place], [place] [address] [place] [address] Bryan Uribe M.D. [address] [place] [address] Health Maintenance Due Date Last Done Comments [...] 09/08/2021, 08/27/2021 PEG assessment for Opioid therapy 10/13/2024 07/08/2024 Hemoglobin A1C 10/14/2024 07/15/2024, 03/0 02/2024, [...] history exists Opioid Use Disorder (OUD) Screening 10/13/2025 11/20/2023 Colonoscopy 07/03/2027 07/03/2022, 07/03/2022 Colorectal Cancer [...] Comments EXTM HEMOGLOBIN A1C, B Routine 01/07/2024 BASIC METABOLIC PANEL, S/P Routine 10/09/2023 1:52 PM BOOM MASTER Hypertension And Chronic Kidney Disease Stage 1 ALBUMIN, RANDOM, U Routine 2022 8: 48 AM BOOM MASTER Diabetes Mellitus Type 2 Peripheral Neuropathy (HCC) HCV AB SCRN W/REFLEX TO HCV PCR, S Routine 2022 8:35 AM BOOM MASTER Screening Test Laboratory LIPID PANEL, S Routine 2022 8:35 AM BOOM MASTER Hyperlipidemia COLONOSCOPY 07/03/2022 9:11 AM CDT COLOGUARD Routine 08/27/2021 10:40 AM CDT Screening Cancer Colon from Last 3 Months or Most Recently Relevant to Health Maintenance Results * (ABNORMAL) Basic Metabolic Panel (10/09/2023 1:52 PM BOOM MASTER) Potassium, P 4.4 3.6 - 5.2 mmol/L 10/09/2023 4:06 PM BOOM MASTER NPR[facility] Sodium, P 133(L) 135 - 145 mmol/L 10/09/2023 4:06 PM BOOM MASTER NPR[facility] Chloride, P 101 98 - 107 mmol/L 10/09/2023 4:06 PM BOOM MASTER NPR[facility] Bicarbonate, P 22 22 - 29 mmol/L 10/09/2023 4:06 PM BOOM MASTER NPR[facility] Anion Gap, P 10 7 - 15 10/09/2023 4:06 PM BOOM MASTER [facility] BUN (Blood Urea Nitrogen), P 23 8 - 24 mg/dL 10/09/2023 4:06 PM BOOM MASTER NPR[facility] Creatinine 0.69(L) 0.74 - 1.35 mg/dL 10/09/2023 4:06 PM BOOM MASTER NPR[facility] Estimated GFR (eGFR) >90 >=60 mL/min/BSA 10/09/2023 4:06 PM BOOM MASTER NPR[facility] Comment: Estimated GFR calculated using the 2020 CKD_EPI creatinine equation. Calcium, Total, P 8.5(L) 8.6 - 10.0 mg/dL 10/09/2023 4:06 PM BOOM MASTER NPRG Glucose, P 280(H) 70 - 140 mg/dL 10/09/2023 4:06 PM BOOM MASTER NPR[facility] Blood (Blood, Venous) 10/09/2023 1:52 PM BOOM MASTER 10/09/2023 3:34 PM BOOM MASTER us Tello Wood M.D. LAB BLOOD ADD-ON Final Result Performing Organization Address [facility] Co de Phone Number [facility] [address] [place] [address], [facility] NPRG [address] [address] * (ABNORMAL) Albumin, Random, Urine (2022 8:48 AM BOOM MASTER) Microalbumin 100.0 mg/L 2022 10:46 AM BOOM MASTER NPRG Creatinine 124 mg/dL 2022 10:46 AM BOOM MASTER NPRG Albumin/Creatinin e Ratio 81(H) <17 mg/g 2022 10:46 AM BOOM MASTER NPRG Urine (Urine, Voided) 2022 8:48 AM BOOM MASTER 2022 10:11 AM BOOM MASTER us Bryan Uribe M.D. LAB URINE ORDERABLES Final Resu lt Performing Organization Address City/[facility]/ZIP Co de Phone Number [facility] [address] [place] [address], [facility] NPRG [address] [address] * Lipid Panel (2022 8:35 AM BOOM MASTER) Triglycerides 98 mg/dL 2022 10:39 AM BOOM MASTER NPRG Comment: ----REFERENCE VALUE---- Normal: <150 mg/dL Borderline High: 150-199 mg/dL High: 200-499 mg/dL Very High: > or =500 mg/dL Cholesterol, Total 147 mg/dL 2021 10:39 AM BOOM MASTER NPR[facility] Comment: ----REFERENCE VALUE---- Desirable: < 200 mg/dL Borderline High: 200 - 239 mg/dL High: > or = 240 mg/dL Cholesterol, LDL, Calculated 88 mg/dL 2022 10:39 AM BOOM MASTER NPRG Comment: ----REFERENCE VALUE---- Desirable: <100 mg/dL Above Desirable: 100-129 mg/dL Borderline High: 130-159 mg/dL High: 160-189 mg/dL Very High: >=190 mg/dL ----ADDITIONAL INFORMATION---- LDL cholesterol calculated using the Boyd/NIH equation. Cholesterol, HDL 41 >=40 mg/dL 10/20/20 10:39 AM BOOM MASTER NPRG Cholesterol, Non-HDL, Calculated 106 mg/dL 2022 10:39 AM BOOM MASTER NPR[facility] Comment: ----REFERENCE VALUE---- Desirable: <130 mg/dL Above Desirable: 130-159 mg/dL Borderline High: 160-189 mg/dL High: 190-219 mg/dL Very High: > or =220 mg/dL Fasting (8 HR or more) Yes 2022 10:13 AM BOOM MASTER NPRG Blood (Blood, Venous) 2022 8:35 AM BOOM MASTER 2022 10:13 AM BOOM MASTER us Bryan Uribe M.D. LAB BLOOD ADD-ON Final Result [facility] [address] [place] [address], [place] [facility] [address] [place] [address] * HCV Ab Scrn w/Reflex to HCV PCR, Serum (2022 8:35 AM BOOM MASTER) HCV Ab Screen, S Negative Negative 10/21/2022 12:31 PM BOOM MASTER [facility] Comment:Hjplpp-gc-revtxn rat io is <1.00. Blood (Blood, Venous) 2022 8:35 AM BOOM MASTER 10/21/2022 12:31 PM BOOM MASTER Bryan Uribe M.D. LAB MICROBIOLOGY - BLOOD ORDERA BLES Final Result [facility] [address] [place] [address] [facility] [address] [place] [address] * COLONOSCOPY (07/03/2022 9:11 AM CDT) Narrative Procedure Note Geetha Spicer M.D. - 07/03/2022 9:[address] [facility] GI Patient Name: Rey Bhardwaj Procedure [...] colonic preparation and pertinent family history. For [facility] providers, detailed recommendations are available as an AskMayoExpert Care Process Model: <<[email or web address]>. Theabove is an interim recommendation assuming [...] the bowel preparation was evaluated using theBBPS ([place] Bowel Preparation Scale) with scores of: Right [...] (Aleksandar Banks al, N Engl J Med 2014;370(14):7787-1259.) Cologuard may produce a false negative or false positive result (no colorectal cancer or precancerous polyp present at colonoscopy follow up). A negative Cologuard test result does not guarantee the absence of CRC or advanced adenoma (pre-cancer). The current Cologuard screening interval is every 3 years. ([place] Cancer Society and U.S. Multi-Society Task Force). Cologuard performance data in a 10,000 patient pivotal study using colonoscopy as the reference method can be accessed at the following location: www.muzu tv/results. Additional description of the Cologuard test process, warnings and precautions can be found at www.[email or web address] Medical Systems[employer] Inc.rd.com. Stool (Stool) 08/27/2021 10: 40 AM CDT 08/28/2021 10:54 PM CDT Bryan Uribe M.D. LAB BODY FLUIDS AND STOOLS NEGAR BARRIOS Final Result [employer] [address] [place] [address] [employer] [address], [address] [place] [address] from Last 3 Months or Most Recently Relevant to Health Maintenance Insurance [employer] [facility] Address: [address] [address] [employer]ANCE Advance Directives For more information, please contact: [phone] * Full Code (Latest Code Status on File) Date Activated Date Inactivated Comments 07/03/2022 9:20 AM 07/03/2022 12:00 PM Question Answer Comments Full Code: Not Discussed Due to: Patient not available * Full Code Date Activated Date Inactivated Comments 07/03/2022 8:06 AM 07/03/2022 9:20 AM Question Answer Comments Full Code: Not Discussed Due to: Patient not available Care Teams Set Builder Relationship Specialty Start Date End Date Bryan Uribe M.D. [address] [place] [address] PCP - General Family Medicine 04/10/24
--- OUTSIDE RECORDS SUMMARY | 2024-10-14 09:16 | XMS_ITS | Encounter Summary ---
Author Organization [facility] Address [address] [place] [address] Care Team Providers Care Insurance Examining Clerk Name Role Phone Bryan Uribe M.D. Primary Care Provider Reason for Visit * Reason Onset Date Comments Med Refill 10/13/2024 Encounter Details Date Type Department Care Team (Late st Contact Info) Description 10/13/2024 Refill Department of Family Medicine in [place], [place] [address] [place] [address] Bryan Uribe M.D. [address] [place] [address] Med Refill Social History Tobacco Use Types [...] often do you attend chur ch or mormonism services? Never 07/12/2022 Do you belong to [...] Answer Date Recorded PHQ-2 Score 2 03/25/2024 [facility] Questionnaire Answer Date [...] your living situation today? I have a [facility] place to live 10/09/2023 Education Answer Date Recorded What is the highest level of school you have completed or the highest degree you have received? GED or equivalent 05/2022 Sex and Gender Information Value Date Recorded Sex Assigned at Male 07/12/2022 1:04 PM CDT Legal Sex Male 4:24 PM FLUX TUBE ATTENDANT Gender Identity Male 07/12/2022 1:04 PM CDT Sexual Orientation Straight 07/12/2022 1: 04 PM CDT documented as of this encounter Miscellaneous Notes * Telephone Encounter - Lexi Grimes R.M.AGracie - 10/13/2024 2:00 PM FLUX TUBE ATTENDANT Images from the original note were not included. R: Please review pended controlled substance medication and update/approve/deny as applicable. S: Request from: patient B: Chronic Pain Syndrome Indication for opiate pain medication: Cervical radiculopathy. Current medication: OxyCODONE for cervical radiculopathy. Number prescribed per month: 60 Expected duration: To be determined Controlled substance agreement signed: 03/25/2024 Clinic follow up recommended every 3 months. Orders: Family Medicine office visit (clinic) oxyCODONE (Roxicodone) 5 mg immediate release tablet; Take 1 tablet (5 mg total) by mouth 2 (two) times a day as needed for pain Indication: Chronic Pain/Nonacute Pain. Last dispensed on 09/09/24 for a quantity of 60 and for a 30 day supply. Due: now Last saw PCP on: 07/08/24 Next appt with PCP: 12/03/23 A: Refill OxyCODONE Controlled Substance Contract signed: YES Recent Urine Screen: YES Pharmacy for Controlled Substances: [facility] [place] Refill history reviewed, no concerns present. TUBE ATTENDANT documented in this encounter Plan of Treatment Upcoming Encounters Date Type Department Care Team (Late st Contact Info) Description 12/03/2024 8:30 AM FLUX TUBE ATTENDANT Comprehensive Visit Department of Family Medicine in [place], [place] [address] [place] [address] Bryan Uribe M.D. [address] [place] [address] documented as of this encounter Visit Diagnoses Diagnosis Chronic Pain Syndrome documented in this encounter Additional Health Concerns Assessment Noted Time PHQ-9 Depression Total Score: 6 03/25/20 24 12:37 PM CDT documented as of this encounter Care Teams Insurance Examining Clerk Relationship Specialty Start Date End Date Bryan Uribe M.D. [address] [place] [address] PCP - General Family Medicine 04/10/24 documented as of this encounter
--- OUTSIDE RECORDS SUMMARY | 2024-10-14 09:16 | XMS_ITS | Encounter Summary ---
Author Organization [facility] Address [address] [place] [address] Care Team Providers Care Switchboard Receptionist Name Role Phone Bryan Uribe M.D. Primary Care Provider [phone] Reason for Visit * Reason Onset Date Comments Med Refill 08/12/2024 Encounter Details Date Type Department Care Team (Late st Contact Info) Description 08/12/2024 Refill Department of Family Medicine in [place], [place] [address] [place] [address] Bryan Uribe M.D. [address] [place] [address] Med Refill Social History Tobacco Use Types [...] often do you attend chur ch or methodist services? Never 07/12/2022 Do you belong to any clubs o r organizations such as zoroastrian groups, unions, fraternal or athletic groups, or [...] Answer Date Recorded PHQ-2 Score 2 03/25/2024 [facility] Questionnaire Answer Date [...] your living situation today? I have a [facility] place to live 10/09/2023 Education Answer Date Recorded What is the highest level of school you have completed or the highest degree you have received? GED or equivalent 05/2022 Sex and Gender Information Value Date Recorded Sex Assigned at Male 07/12/2022 1:04 PM CDT Legal Sex Male 4:24 PM INSULATION AND FLOORING ASSEMBLER Gender Identity Male 07/12/2022 1:04 PM CDT [...] 10/08/24 Pharmacy Verified: Yes [facility] [place] documented in this encounter Plan of Treatment Upcoming Encounters Date Type Department Care Team (Late st Contact Info) Description 12/03/2024 8:30 AM INSULATION AND FLOORING ASSEMBLER Comprehensive Visit Department of Family Medicine in [place], [place] [address] [place] [address] Bryan Uribe M.D. [address] [place] [address] documented as of this encounter Visit Diagnoses Diagnosis Chronic Pain Syndrome documented in this encounter Additional Health Concerns Assessment Noted Time PHQ-9 Depression Total Score: 6 03/25/20 24 12:37 PM CDT documented as of this encounter Care Teams Switchboard Receptionist Relationship Specialty Start Date End Date Bryan Uribe M.D. [address] [place] [address] PCP - General Family Medicine 04/10/24 documented as of this encounter
--- OUTSIDE RECORDS SUMMARY | 2024-10-14 09:16 | XMS_ITS | Referral Summary ---
Author Organization [facility] Address [address] [place] [address] Care Team Providers Care Transformer Coil Winder Name Role Phone Bryan Uribe M.D. Primary Care Provider [phone] Source Comments Patient records contain information from all sites at [facility]. For routine questions regarding patient records, call [phone] during business hours, M-F 8:00 AM - 5:00 PM Central Time. Record requests for emergency care only can be directed to [phone] at any time.[facility] Encounters Date Type Department Care Team Description 10/13/2024 Refill Department of Family Medicine in [place], [place] [address] [place] [address] Bryan Uribe M.D. Med Refill 09/09/2024 Refill Department of Family Medicine in [place], [place] [address] [place] [address] Bryan Uribe M.D. Med Refill 08/12/2024 Refill Department of Family Medicine in [place], [place] [address] [place] [address] Bryan Uribe M.D. Med Refill 07/16/2024 Clinical Communication Department of Family Medicine in [place], [place] [address] [place] [address] Bryan Uribe M.D. Welcome To Medicare from Last 3 Months Allergies Active Allergy [...] mm right foraminal disc protrusion. There is [id number] spondylosis through the rest of the lumbar [...] months. Assessment & Plan (11/20/2023 4:36 PM BMET): Indication for opiate pain medication: Cervical radiculopathy. Continue Cymbalta 30 mg twice a day for pain management. Current medication: Oxycodone for cervical radiculopathy. Number prescribed per month: 60 Expected duration: To be determined Controlled substance agreement signed: 01/22/2023 Clinic follow up recommended every 3 months. Radiculopathy Cervical Seventh 07/12/2022 Assessment & Plan (07/08/2024 1:19 PM CDT): Previously under the care of [facility]. Now under the care of [facility] [...] CDT): Previously under the care of [facility]. Cervical spondylosis without myelopathy. Status post medial branch nerve block 05/2023. On chronic opiate therapy with oxycodone 5 mg twice a day. Assessment & Plan (11/20/2023 4:34 PM BMET): Previously under the care of [facility]. Cervical spondylosis without myelopathy. Status post medial branch nerve block 05/2023. On chronic opiate therapy with oxycodone 5 mg twice a day. Diabetes Mellitus Type 2 Peripheral Neuropathy 0 05/29/2016 Assessment & Plan (11/20/2023 4:35 PM BMET): Diabetes appears appears poorly controlled. Medications: Continue [...] to get the insulin and semaglutide. Unfortunately [facility] is unable to receive prescriptions at [...] 02/28/2016 Assessment & Plan (11/20/2023 4:29 PM BMET): He was encouraged to try to continue efforts at losing weight. He will continue Ozempic 2mg weekly. We discussed lifestyle modification to manage obesity. The overall health benefits of weight loss were reviewed. Hyperlipidemia 08/25/2014 Assessment & Plan (11/20/2023 4:31 PM BMET): Lipids are appears adequately controlled. Medication recommendations: Continue Arovastatin 40mg daily. Cholesterol management goals were discussed. Lifestyle modification recommendations to improve cholesterol were reviewed. Plan for annual lipid monitoring. Hypertensive Chronic Kidney Disease With Stage 1 Through Stage 4 Chronic Kidney Disease, Or Unspecified Chronic Kidney Disease 10/27/2013 Assessment & Plan (11/20/2023 4:31 PM BMET): Blood pressure appears well controlled. Medications recommendations: [...] (09/09/2021): Added automatically from request for surgery [id number] Clostridium Difficile Infection 06/29/2016 09/18/2017 Diabetes Mellitus [...] any clubs o r organizations such as jainism groups, unions, fraternal or athletic groups, or [...] Answer Date Recorded PHQ-2 Score 2 03/25/2024 [facility] [place] [facility] - Occupational Stress [...] PM CDT Legal Sex Male 4:24 PM BMET Gender Identity Male 07/12/2022 1:04 PM CDT Sexual Orientation Straight 07/12/2022 1: 04 PM CDT Last Filed Vital Signs Vital Sign Reading Time Taken Comments Blood Pressure 110/78 07/08/2024 12:40 PM CDT Pulse 115 07/08/2024 12:40 PM CDT Temperature 36.6 C (97.9 F) 07/08/2024 12:40 PM CDT Respiratory Rate 20 10/09/2023 1:16 PM BMET Oxygen Saturation 96% 07/08/2024 12:40 PM CDT Inhaled Oxygen Concentration - - Weight 123 kg (271 lb 13.2 oz) 07/08/2024 12:40 PM CDT Height 184 cm (6' 0.44) 07/08/2024 12:40 PM CDT Body Mass Index 36.42 07/08/2024 12:40 PM CDT Plan of Treatment Upcoming Encounters Date Type Department Care Team (Late st Contact Info) Description 12/03/2024 8:30 AM BMET Comprehensive Visit Department of Family Medicine in [place], [place] [address] [place] [address] Bryan Uribe M.D. [address] [place] [address] Procedures Procedure Name Priority Date/Time Associated Diagnosis Comments EXTM HEMOGLOBIN A1C, B Routine 01/07/2024 BASIC METABOLIC PANEL, S/P Routine 10/09/2023 1:52 PM BMET Hypertension And Chronic Kidney Disease Stage 1 ALBUMIN, RANDOM, U Routine 2022 8: 48 AM BMET Diabetes Mellitus Type 2 Peripheral Neuropathy (HCC) HCV AB SCRN W/REFLEX TO HCV PCR, S Routine 2022 8:35 AM BMET Screening Test Laboratory LIPID PANEL, S Routine 2022 8:35 AM BMET Hyperlipidemia COLONOSCOPY 07/03/2022 9:11 AM CDT COLOGUARD Routine 08/27/2021 10:40 AM CDT Screening Cancer Colon from Last 3 Months or Most Recently Relevant to Health Maintenance Results * (ABNORMAL) Basic Metabolic Panel (10/09/2023 1:52 PM BMET) Pathologist [facility] Potassium, P 4.4 3.6 - 5.2 mmol/L 10/09/2023 4:06 PM BMET [facility] Sodium, P 133(L) 135 - 145 mmol/L 10/09/2023 4:06 PM BMET [facility] Chloride, P 101 98 - 107 mmol/L 10/09/2023 4:06 PM BMET [facility] Bicarbonate, P 22 22 - 29 mmol/L 10/09/2023 4:06 PM BMET [facility] Anion Gap, P 10 7 - 15 10/09/2023 4:06 PM BMET [facility] BUN (Blood Urea Nitrogen), P 23 8 - 24 mg/dL 10/09/2023 4:06 PM BMET [facility] Creatinine 0.69(L) 0.74 - 1.35 mg/dL 10/09/2023 4:06 PM BMET [facility] Estimated GFR (eGFR) >90 >=60 mL/min/BSA 10/09/2023 4:06 PM BMET [facility] Comment: Estimated GFR calculated using the 2020 CKD_EPI creatinine equation. Calcium, Total, P 8.5(L) 8.6 - 10.0 mg/dL 10/09/2023 4:06 PM BMET [facility] Glucose, P 280(H) 70 - 140 mg/dL 10/09/2023 4:06 PM BMET [facility] Blood (Blood, Venous) 10/09/2023 1:52 PM BMET 10/09/2023 3:34 PM BMET us Tello Wood M.D. LAB BLOOD ADD-ON Final Result [facility] [address] [place] [address], [place] NPRG [facility] [address] [place] [address] * (ABNORMAL) Albumin, Random, Urine (2022 8:48 AM BMET) Microalbumin 100.0 mg/L 2022 10:46 AM BMET NPR[facility] Creatinine 124 mg/dL 2022 10:46 AM BMET NPRG Albumin/Creatinin e Ratio 81(H) <17 mg/g 2022 10:46 AM BMET NPR[facility] Urine (Urine, Voided) 2022 8:48 AM BMET 2022 10:11 AM BMET us Bryan Uribe M.D. LAB URINE ORDERABLES Final Resu lt [facility] [address] [place] [address], [place] NPRG [facility] [address] [place] [address] * Lipid Panel (2022 8:35 AM BMET) Triglycerides 98 mg/dL 2022 10:39 AM BMET [facility] Comment: ----REFERENCE VALUE---- Normal: <150 mg/dL Borderline High: 150-199 mg/dL High: 200-499 mg/dL Very High: > or =500 mg/dL Cholesterol, Total 147 mg/dL 2021 10:39 AM BMET [facility] Comment: ----REFERENCE VALUE---- Desirable: < 200 mg/dL Borderline High: 200 - 239 mg/dL High: > or = 240 mg/dL Cholesterol, LDL, Calculated 88 mg/dL 2022 10:39 AM BMET [facility] Comment: ----REFERENCE VALUE---- Desirable: <100 mg/dL Above Desirable: 100-129 mg/dL Borderline High: 130-159 mg/dL High: 160-189 mg/dL Very High: >=190 mg/dL ----ADDITIONAL INFORMATION---- LDL cholesterol calculated using the Obyd/NIH equation. Cholesterol, HDL 41 >=40 mg/dL 10/20/20 10:39 AM BMET NPR[facility] Cholesterol, Non-HDL, Calculated 106 mg/dL 2022 10:39 AM BMET [facility] Comment: ----REFERENCE VALUE---- Desirable: <130 mg/dL Above Desirable: 130-159 mg/dL Borderline High: 160-189 mg/dL High: 190-219 mg/dL Very High: > or =220 mg/dL Fasting (8 HR or more) Yes 2022 10:13 AM BMET NPR Blood (Blood, Venous) 2022 8:35 AM BMET 2022 10:13 AM BMET Bryan Uribe M.D. LAB BLOOD ADD-ON Final Result [facility] [address] [place] [address], [facility] NPRG [facility] [address] [place] [address] * HCV Ab Scrn w/Reflex to HCV PCR, Serum (2022 8:35 AM BMET) HCV Ab Screen, S Negative Negative 10/21/2022 12:31 PM BMET [facility] Comment:[id number] rat io is <1.00. Blood (Blood, Venous) 2022 8:35 AM BMET 10/21/2022 12:31 PM BMET Bryan Uribe M.D. LAB MICROBIOLOGY - BLOOD ORDERA BLES Final Result Performing Organization Address City/[facility]/ZIP Co de Phone Number [facility] [address] [place] [address] [place] [id number] [place] [address] * COLONOSCOPY (07/03/2022 9:11 AM CDT) Narrative Procedure Note Geetha Spicer M.D. - 07/03/2022 9:11 AM CDT [facility] Patient Name: Rey Jenkins Procedure Date: [...] colonic preparation and pertinent family history. For [facility] providers, detailed recommendations are available as an AskMayoExpert Care Process Model: <<[email or web address]>. Theabove is an interim recommendation assuming adenomatous [...] the bowel preparation was evaluated using theBBPS (Stonewall Bowel Preparation Scale) with scores of: Right [...] (Aleksandar Banks al, N Engl J Med 2014;370(14):2503-3655.) Cologuard may produce a false negative or [...] can be accessed at the following location: www.MicroEval/results. Additional description of the Cologuard test process, warnings and precautions can be found at www.[employer]. Stool (Stool) 08/27/2021 10: 40 AM CDT 08/28/2021 10:54 PM CDT Bryan Uribe M.D. LAB BODY FLUIDS AND STOOLS NEGAR BARRIOS Final Result [employer] [address] [place] [address] [facility] [employer] [address] [facility], [address] [place] [address] from Last 3 Months or Most Recently Relevant to Health Maintenance [facility] Advance Directives For more information, please contact: [phone] * Full Code (Latest Code Status on File) Date Activated Date Inactivated Comments 07/03/2022 9:20 AM 07/03/2022 12:00 PM Question Answer Comments Full Code: Not Discussed Due to: Patient not available * Full Code Date Activated Date Inactivated Comments 07/03/2022 8:06 AM 07/03/2022 9:20 AM Question Answer Comments Full Code: Not Discussed Due to: Patient not available Care Teams Transformer Coil Winder Relationship Specialty Start Date End Date Bryan Uribe M.D. [address] [place], [place] [id number] PCP - General Family Medicine 04/10/24
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
--- OUTSIDE RECORDS SUMMARY | 2024-10-14 09:17 | XMS_ITS | Clinical Summary ---
Author Organization [facility] Address [address] [place] [address] Care Team Providers Care General Maintenance Helper Name Role Phone Bryan Uribe MD Primary Care Provider Allergies No known active allergies Medications amLODIPine [...] on file Legal Sex Male 3:29 AM FALL INTERNSHIP Gender Identity Not on file Sexual Orientation Not on file Last Filed Vital Signs Vital Sign Reading Time Taken Comments Blood Pressure 114/70 09/01/2016 1:43 PM CDT Pulse 84 09/26/2017 3:23 PM FALL INTERNSHIP Temperature - - Respiratory Rate - - Oxygen Saturation 98% 09/26/2017 3:23 PM FALL INTERNSHIP Inhaled Oxygen Concentration - - Weight 117.9 kg (260 lb) 09/26/2017 3:23 PM FALL INTERNSHIP Height 185.4 cm (6' 1) 09/26/2017 3:23 PM FALL INTERNSHIP Body Mass Index 34.3 09/26/2017 3:23 PM FALL INTERNSHIP Plan of Treatment Not on file Insurance [facility] [employer] Care Teams General Maintenance Helper Relationship Specialty Start Date End Date Bryan Uribe MD PCP - General Family Practice 08/24/16
--- OUTSIDE RECORDS SUMMARY | 2024-10-14 09:17 | XMS_ITS | Encounter Summary ---
Author Organization [facility] Address [address] [place] [address] Care Team Providers Care Educator Senior Clinical Name Role Phone Bryan Uribe M.D. Primary Care Provider [phone] Encounter Details Date Type Department Care Team (Latest Contact Info) Description 07/08/2024 11:07 AM CDT - 07/08/2024 11:59 PM CDT Hospital Encounter Department of Laboratory Medicine in [place], [place] [address] [place] [address] Bryan Uribe M.D. [address] [place] [address] Hypertensive Chronic Kidney Disease With Stage 1 [...] How often do you attend chur or rastafari services? Never 07/12/2022 Do you belong to [...] Answer Date Recorded PHQ-2 Score 2 03/25/2024 [facility] - Occupational [...] your living situation today? I have a [facility] place to live 10/09/2023 Education Answer Date Recorded What is the highest level of school you have completed or the highest degree you have received? 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 [address] [place] [phone] documented as of this encounter Procedures Procedure Name Priority Date/Time Associated Diagnosis Comments CONTROLLED SUBSTANCE MONITORING, U Routine 07/08/2024 11:26 AM CDT Chronic Pain Syndrome documented in this encounter Results * (ABNORMAL) Controlled Substance Monitoring Panel, Urine (07/08/2024 11:26 AM CDT) List patient's current medications Not provided 10:02 PM CDT [facility] Comment: ----ADDITIONAL INFORMATION---- Accuracy and completeness of declared medications on reports solely dependent on information submitted by client. Creatinine, Random, U 221.3 mg/dL 4 8:47 AM CDT SDS Specific Byers 1.030 07/09/20 2 4 8:47 AM CDT [facility] pH 5.3 4 8:47 AM CDT [facility] Oxidants Negative Cutoff: 200 mg/L 4 8:47 AM CDT [facility] Comment Normal 4 8:47 AM CDT SDS Barbiturates Negative Cutoff: 200 ng/mL 4 8:47 AM CDT [facility] Cocaine Negative Cutoff: 150 ng/mL 4 8:47 AM CDT [facility] Comment: This cocaine immunoassay targets benzoylecgonine the primary metabolite of cocaine. Tetrahydrocannabinol Negative Cutoff: 50 ng/mL 4 8:47 AM CDT [facility] Comment: This immunoassay targets delta-9 tetrahydrocannabinol carboxylic acid (THC-COOH), a metabolite of delta-9 tetrahydrocannabinol the main psychoactive ingredient of marijuana. ----ADDITIONAL INFORMATION---- This report is intended for use in clinical monitoring or management of patients. It is not intended for use in employment-related testing. Codeine Not Detected Cutoff: 25 ng/mL 4 10:51 AM CDT [facility] Comment:Tylenol 3 Mguvvng-9-qplq-glucuro nide Not Detected Cutoff: 100 ng/mL 4 10:51 AM CDT [facility] Comment:Metabolite of codein e Morphine Not Detected Cutoff: 25 ng/mL 4 10:51 AM CDT [facility] Comment: Julia Ruiz, [place] Contin; Also a minor metabolite (10%) of codeine and can be seen in low concentrations (<2,000 ng/mL) with poppy seed ingestion. Tlwtpeuo-7-enuc-glucur onide Not Detected Cutoff: 100 ng/mL 4 10:51 AM CDT [facility] Comment:Metabolite of morphi ne 6-monoacetylmorphine Not Detected Cutoff: 25 ng/mL 4 10:51 AM CDT [facility] Comment:Metabolite of heroin Hydrocodone Not Detected Cutoff: 25 ng/mL 4 10:51 AM CDT [facility] Comment: Lortab, [place], Vicodin; Also a very minor metabolite of [...] and a minor (<5%) metabolite of morphine. Lurnfpprjhvvn-6-rmsr-g lucuronide Not Detected Cutoff: 100 ng/mL 4 10:51 AM CDT [facility] Comment:Metabolite of hydrom orphone Oxycodone Present(A) Cutoff: 25 ng/mL 4 10:51 AM CDT [facility] Comment:Endocet, Percocet, O xycontin Noroxycodone Present(A) Cutoff: 25 ng/mL 4 10:51 AM CDT [facility] Comment:Metabolite of oxycod one Oxymorphone Not Detected Cutoff: 25 ng/mL 4 10:51 AM CDT [facility] Comment:Numorphan, Opana; Al so a metabolite of oxycodone. Bklcocspgro-8-ugxl-glu curonide Present(A) Cutoff: 100 ng/mL 4 10:51 [...] ng/mL 4 10:51 AM CDT [facility] Comment:Narcan Wbnyfwtu-5-olea-glucur onide Not Detected Cutoff: 100 ng/mL 4 [...] AM CDT SDS Comment:Metabolite of tapent adol Sotxhjdhpe-sbmv-lzgend onide Not Detected Cutoff: 100 ng/mL 4 [...] oxycodone and several metabolites (noroxycodone, noroxymorphone, and karvytatfhy-2-lgu a-glucuronide). Suspect use of oxycodone and/or oxymorphone within the past three days. 4 10:51 AM CDT [facility] Comment: ----ADDITIONAL INFORMATION---- This test was developed and its performance characteristics determined by [facility] in a manner consistent with CLIA [...] Cutoff: 10 ng/mL 4 8:44 AM CDT [facility] Comment:Centrax Temazepam Not Detected Cutoff: 10 ng/mL [...] 4 8:44 AM CDT [facility] Comment:Ambien Zolpidem Fnodsb-1-Vgytjdlgyf acid Not Detected Cutoff: 10 ng/mL 4 [...] developed and its performance characteristics determined by [facility] in a manner consistent with CLIA [...] 100 ng/mL 4 11:12 AM CDT [facility] 3,2-yoivhtsrkdccyr-G-e thylamphetamine (MDEA) Not Detected Cutoff: 100 ng/mL 4 11:12 AM CDT [facility] 3,4-methylenedioxyamph etamine (MDA) Not Detected Cutoff: 100 ng/mL 4 11:12 AM CDT [facility] Comment:Also a metabolite of MDMA and/or MDEA Ephedrine Not Detected Cutoff: 100 ng/mL 4 11:12 AM CDT [facility] Pseudoephedrine Not Detected Cutoff: 100 ng/mL 4 11:12 AM CDT [facility] Comment:Sudafed Phentermine Not Detected Cutoff: 100 ng/mL 4 11:12 AM CDT [facility] Comment:Adipex-P, Lomaira, Q symia Phencyclidine (PCP) Not Detected Cutoff: 20 ng/mL 4 11:12 AM CDT [facility] Methylphenidate Not Detected Cutoff: 20 ng/mL 4 11:12 AM CDT [facility] Comment:Ritalin, Concerta Ritalinic acid Not Detected Cutoff: 100 ng/mL 4 11:12 AM CDT [facility] Comment:Metabolite of methyl phenidate Stimulant Interpretation No stimulants were detected. The absence of expected drug(s) and/or drug metabolite(s) may indicate non-compliance, altered pharmacokinetics, inappropriate timing of specimen collection relative to drug administration, diluted/adulterat ed urine, or limitations of testing. 4 11:12 AM T [facility] Comment: ----ADDITIONAL INFORMATION---- This test was developed and its performance characteristics determined by [facility] in a manner consistent with CLIA requirements. This test has not been cleared or approved by the U.S. Food and Drug Administration. Urine (Urine, Voided) 07/08/2024 11:26 AM CDT 07/08/2024 10:02 PM CDT us Bryan Uribe M.D. LAB URINE ORDERABLES Final Resu lt [facility] [address] [place] [address] [facility] [address] [place] [address] [facility] [address] [place] [address] [place] [address] documented in this encounter Visit Diagnoses Diagnosis Hypertensive Chronic Kidney Disease With Stage 1 Through Stage 4 Chronic Kidney Disease, Or Unspecified Chronic Kidney Disease Chronic Pain Syndrome documented in this encounter Additional Health Concerns Assessment Noted Time PHQ-9 Depression Total Score: 6 03/25/20 24 12:37 PM CDT documented as of this encounter Care Teams Educator Senior Clinical Relationship Specialty Start Date End Date Bryan Uribe M.D. [address] [place] [address] PCP - General Family Medicine 04/10/24 documented as of this encounter
--- OUTSIDE RECORDS SUMMARY | 2024-10-14 09:17 | XMS_ITS | Encounter Summary ---
Author Organization [facility] Address [address] [place] [address] Care Team Providers Care Industrial Coffee Grinder Name Role Phone Bryan Uribe M.D. Primary Care Provider [phone] Reason for Referral * Outpatient (Routine) - Authorized Specialty Diagnoses / Procedures Referred By Tenisha mccoy Referred To Contact Family Medicine Bryan Uribe M.D. [address] [place] [address] Phone: tel: fax: [facility] Region Referral ID Status Reason Start Date Expiration Date V isits Requested Visits Authorized [id number] Authorized 07/08/2024 01/07/2026 1 1 Reason for Visit * Reason Comments Med Management Pain management foll ow up * Outpatient (Routine) - Closed Specialty Diagnoses / Procedures Referred By Tenisha mccoy Referred To Contact Family Medicine Diagnoses Chronic Pain Syndrome Bryan Uribe M.D. [address] [place] [address] Phone: tel: fax: [facility] Referral ID Status Reason Start Date Expiration Date Visits Re quested Visits Authorized [id number] Closed 03/25/2024 09/24/2025 1 1 Encounter Details Date Type Department Care Team (Late st Contact Info) Description 07/08/2024 1:00 PM CDT Office Visit Department of Family Medicine in [place], [place] [address] [place] [address] Bryan Uribe M.D. [address] [place] [address] Chronic Pain Syndrome (Primary Dx); Radiculopathy Cervical [...] 07/12/2022 How often do you attend chur [employer] or cheondoism services? Never 07/12/2022 Do you belong to any clubs o r organizations such as yarsani groups, unions, fraternal or athletic groups, or [...] Answer Date Recorded PHQ-2 Score 2 03/25/2024 [facility] - Occupational [...] PM CDT Legal Sex Male 4:24 PM SURGICAL SERVICES MANAGER Gender Identity Male 07/12/2022 1:04 PM CDT [...] in this encounter Progress Notes * Bryan Uirbe M.D. - 07/08/2024 1:00 PM CDT OFFICE VISIT [facility] SUBJECTIVE CHIEF COMPLAINT/REASON FOR VISIT Med [...] Seventh Previously under the care of [facility]. Now under the care of [facility]. Cervical spondylosis without [...] mm right foraminal disc protrusion. There is [id number] spondylosis through the rest of the lumbar spine without high-grade stenosis. Currently under the care of [facility]. Reported planned surgical management with spine fusion. Plan for follow-up with Orthopedics for management. [place], however when it comes to upcoming surgery, his postoperative pain will need to be managed by Orthopedics. Pain Knee Left Currently under the care of [facility]. MRI of the [...] Seventh Previously under the care of [facility]. Now under the care of [facility]. Cervical spondylosis without [...] mm right foraminal disc protrusion. There is [id number]-jmwovwfe spondylosis through the rest of the lumbar spine without high-grade stenosis. Currently under the care of [facility]. Reported planned surgical management with spine fusion. Plan for follow-up with Orthopedics for management. [place], however when it comes to upcoming surgery, his postoperative pain will need to be managed by Orthopedics. * Assessment & Plan Note - Bryan Uribe M.D. - 07/08/2024 1:00 PM CDTAssociated Problem(s): Pain Knee Left Currently under the care of [facility]. MRI of the [...] st Contact Info) Description 12/03/2024 8:30 AM SURGICAL SERVICES MANAGER Comprehensive Visit Department of Family Medicine in [place], [place] [address] [place] [address] Bryan Uribe M.D. [address] [place] [address] Scheduled Referrals Name Type Priority Associated Diagnoses Orde r Schedule Family Medicine office visit (clinic) Outpatient Referral Routine Expected: 10/07/2024 (Approximate), Expires: 10/07/2025 documented as of this encounter Procedures Procedure Name Priority Date/Time Associated Diagnosis Comments EXTM HEMOGLOBIN A1C, B Routine 01/07/2024 documented in this encounter Results * EXT Hemoglobin A1c (01/07/2024) EXT Hemoglobin A1c, B 8.6 OTHER (SPECIFY IN LEGAL NURSE CONSULTANT) Blood (Blood, Venous) 01/07/2024 [facility] Provider LAB BLOOD ADD-ON Final Resul t OTHER (SPECIFY IN LEGAL NURSE CONSULTANT) N/A documented in this encounter Visit Diagnoses Diagnosis Chronic Pain Syndrome- Primary Radiculopathy Cervical Seventh Pain Low Back Unspecified Pain Knee Left documented in this encounter Additional Health Concerns Assessment Noted Time PHQ-9 Depression Total Score: 6 03/25/20 24 12:37 PM CDT documented as of this encounter Care Teams Industrial Coffee Grinder Relationship Specialty Start Date End Date Bryan Uribe M.D. [address] [place] [address] PCP - General Family Medicine 04/10/24 documented as of this encounter
--- OUTSIDE RECORDS SUMMARY | 2024-10-14 09:17 | XMS_ITS | Referral Summary ---
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 Care Teams Cattle Manager Relationship Specialty Start Date End Date Bryan Uribe MD PCP - General Family Practice 08/24/16
== END 2024-10-14 09:14 | disposition home or self-care (01) ==
LOC: WOUND 09:13
PROVIDERS: PCP Family Medicine; Visit Provider Nurse Practitioner Family
DX: E11.621 Type 2 diabetes mellitus with foot ulcer (principal); L97.522 Non-pressure chronic ulcer of other part of left foot with fat layer exposed; Z79.4 Long term (current) use of insulin
CPT/HCPCS: 11042; G0463

== ENCOUNTER 2024-10-21 12:42 | Outpatient (CLI) | payer MEDICARE, SELFPAY | END 2024-10-21 12:43 | disposition home or self-care (01) | LOC: WOUND 12:42 | PROVIDERS: PCP Family Medicine; Visit Provider Nurse Practitioner Family | DX: E11.621 Type 2 diabetes mellitus with foot ulcer (principal); L97.522 Non-pressure chronic ulcer of other part of left foot with fat layer exposed; Z79.4 Long term (current) use of insulin | CPT/HCPCS: 97597 ==

== ENCOUNTER 2024-11-10 15:41 | Outpatient (CLI) | payer MEDICAID, SELFPAY | END 2024-11-10 15:42 | disposition home or self-care (01) | PROVIDERS: PCP Family Medicine; Visit Provider Nurse Practitioner Family | DX: E11.621 Type 2 diabetes mellitus with foot ulcer (principal); L97.528 Non-pressure chronic ulcer of other part of left foot with other specified severity; Z79.4 Long term (current) use of insulin | CPT/HCPCS: G0463 ==

== ENCOUNTER 2024-12-09 12:44 | Outpatient (CLI) | payer MEDICAID, SELFPAY | END 2024-12-09 12:45 | disposition home or self-care (01) | LOC: WOUND 12:44 | PROVIDERS: PCP Family Medicine; Visit Provider Nurse Practitioner Family | DX: Z09 Encounter for follow-up examination after completed treatment for conditions other than malignant neoplasm (principal); Z86.31 Personal history of diabetic foot ulcer; E11.9 Type 2 diabetes mellitus without complications; Z79.4 Long term (current) use of insulin | CPT/HCPCS: G0463 ==